=== PATIENT | male | born 1955 | race Caucasian/White ===

== ENCOUNTER 2019-07-11 09:41 | Outpatient (CLI) | payer MEDICARE, SELFPAY ==
[2019-07-11 10:32] LABS: Hemoglobin A1C 6.1 % (<5.7)
== END 2019-07-11 09:42 | disposition home or self-care (01) ==
LOC: ANHLAB 09:45
PROVIDERS: PCP Internal Medicine; Visit Provider Nurse Practitioner
DX: R73.02 Impaired glucose tolerance (oral) (principal)
CPT/HCPCS: 36415; 83036

== ENCOUNTER 2019-10-27 13:52 | Outpatient (CLI) | payer MEDICARE, SELFPAY ==
[2019-10-27 14:18] LABS: Blood Urea Nitrogen 25 mg/dL (9-20); Calcium 8.7 mg/dL (8.4-10.2); Carbon Dioxide 32 mmol/L (22-30); Chloride 99 mmol/L (98-107); Estimated Glomerular Filt Rate 34; Glucose 114 mg/dL (75-110); Magnesium 2.1 mg/dL (1.6-2.3); Potassium 4.5 mmol/L (3.4-5.0); Sodium 137 mmol/L (137-145)
== END 2019-10-27 13:53 | disposition home or self-care (01) ==
PROVIDERS: PCP Internal Medicine; Visit Provider Internal Medicine Cardiovascular Disease
DX: I50.32 Chronic diastolic (congestive) heart failure (principal)
CPT/HCPCS: 36415; 80048; 83735

== ENCOUNTER 2020-03-15 13:39 | Outpatient (CLI) | payer MEDICARE, SELFPAY ==
[2020-03-15 15:58] LABS: Basophils Absolute Auto 0.1 K/mm3 (0.0-0.1); Basophils Percent Auto 0.9 % (0.2-1.2); Eosinophils Absolute Auto 0.1 K/mm3 (0-0.3); Eosinophils Percent Auto 1.1 % (0-4.4); Hematocrit 37.8 % (42.0-52.0); Hemoglobin 12.8 g/dL (14.0-18.0); Immature Granulocyte Absolute 0.13 K/mm3 (0.00-0.031); Immature Granulocyte Percent A 1.2 % (0-0.5); Lymphocytes Absolute Auto 1.63 K/mm3 (0.9-3.2); Lymphocytes Percent Auto 15.6 % (18.3-44.2); Mean Corpuscular HGB Conc 33.9 g/dl (32-36); Mean Corpuscular Hemoglobin 29.6 pg (26-34); Mean Corpuscular Volume 87.5 fl (80-100); Mean Platelet Volume 10.7 fl (7.4-10.4); Monocytes Absolute Auto 1.4 K/mm3 (0.1-0.6); Neutrophils Absolute Auto 7.1 K/mm3 (1.3-6.7); Neutrophils Percent Auto 68.2 % (45.5-73.1); Platelet Count Result 369 k/mm3 (150-375); Red Blood Count 4.32 M/mm3 (4.6-6.20); Red Cell Distribution Width 13.8 % (11.5-14.5); White Blood Count 10.5 K/mm3 (4.5-10.0)
[2020-03-15 16:11] LABS: Alanine Aminotransferase 27 U/L (4-50); Albumin Level 4.5 g/dL (3.5-5.1); Alkaline Phosphatase 114 U/L (38-126); Anion Gap 9 mmol/L (8-16); Aspartate Amino Transferase 35 U/L (17-59); Bilirubin,Total 0.8 mg/dL (0.2-1.3); Blood Urea Nitrogen 32 mg/dL (9-20); Calcium 9.1 mg/dL (8.4-10.2); Carbon Dioxide 30 mmol/L (22-30); Chloride 99 mmol/L (98-107); Cholesterol 137 mg/dL (0-200); Estimated Glomerular Filt Rate 38; Glucose 85 mg/dL (75-110); HDL Direct 40 mg/dL; Potassium 4.7 mmol/L (3.4-5.0); Sodium 138 mmol/L (137-145); Triglycerides 135 mg/dL (<150)
[2020-03-15 16:16] LABS: Alanine Aminotransferase 26 U/L (4-50); Albumin Level 4.6 g/dL (3.5-5.1); Alkaline Phosphatase 124 U/L (38-126); Aspartate Amino Transferase 42 U/L (17-59); Bilirubin,Total 0.8 mg/dL (0.2-1.3)
[2020-03-15 16:22] LABS: LDL Cholesterol Direct 63 mg/dL
[2020-03-15 16:25] LABS: Hemoglobin A1C 5.9 % (<5.7)
[2020-03-19 10:05] LABS: Testosterone Total 684 ng/dL (250-1100)
== END 2020-03-15 13:40 | disposition home or self-care (01) ==
LOC: ANHLAB 13:41
PROVIDERS: Nurse Practitioner; PCP Internal Medicine; Visit Provider Internal Medicine
DX: R53.83 Other fatigue (principal); I10 Essential (primary) hypertension; R73.03 Prediabetes; E78.5 Hyperlipidemia, unspecified; R79.89 Other specified abnormal findings of blood chemistry
CPT/HCPCS: 36415; 80053; 80061; 80076; 83036; 84403; 84443; 85025

== ENCOUNTER 2020-05-11 07:36 | Outpatient (RCR) | payer MEDICARE, SELFPAY ==
[2020-03-23 13:18] VITALS: BMI 35.4
--- NOTE | 2020-04-05 14:58 | PCWOUND ---
WOCN NOTE patient called to cancel appointment for 04/06/20 states wound is healed.
== END 2020-06-21 23:59 | disposition home or self-care (01) ==
LOC: ANHWOC 07:36
PROVIDERS: PCP Internal Medicine; Visit Provider Nurse Practitioner
DX: L97.929 Non-pressure chronic ulcer of unspecified part of left lower leg with unspecified severity (principal)
CPT/HCPCS: 99212; 99213; A9270; G0463

== ENCOUNTER 2020-09-17 09:28 | Outpatient (CLI) | payer MEDICARE, SELFPAY ==
[2020-09-17 10:24] LABS: Alanine Aminotransferase 18 U/L (4-50); Albumin Level 4.3 g/dL (3.5-5.1); Alkaline Phosphatase 87 U/L (38-126); Anion Gap 8 mmol/L (8-16); Aspartate Amino Transferase 26 U/L (17-59); Bilirubin,Total 1.1 mg/dL (0.2-1.3); Blood Urea Nitrogen 28 mg/dL (9-20); Calcium 8.9 mg/dL (8.4-10.2); Carbon Dioxide 30 mmol/L (22-30); Chloride 101 mmol/L (98-107); Cholesterol 106 mg/dL (0-200); Estimated Glomerular Filt Rate 32; Glucose 130 mg/dL (75-110); HDL Direct 36 mg/dL; Potassium 4.4 mmol/L (3.4-5.0); Sodium 139 mmol/L (137-145); Triglycerides 91 mg/dL (<150)
[2020-09-17 10:35] LABS: LDL Cholesterol Direct 49 mg/dL
[2020-09-17 10:53] LABS: Prostate Specific Antigen 3.6 ng/mL (< OR = 4.0)
[2020-09-21 13:13] LABS: Testosterone Total 155 ng/dL (250-1100)
== END 2020-09-17 09:29 | disposition home or self-care (01) ==
PROVIDERS: PCP Internal Medicine; Visit Provider Internal Medicine
DX: E78.5 Hyperlipidemia, unspecified (principal); Z12.5 Encounter for screening for malignant neoplasm of prostate; I10 Essential (primary) hypertension; R73.03 Prediabetes; R79.89 Other specified abnormal findings of blood chemistry
CPT/HCPCS: 36415; 80053; 80061; 83036; 84153; 84403; G0103

== ENCOUNTER 2021-02-04 10:23 | Outpatient (CLI) | payer MEDICARE, SELFPAY ==
[2021-02-04 11:36] LABS: Hemoglobin A1C 6.3 % (<5.7)
[2021-02-08 11:14] LABS: Testosterone Total 611 ng/dL (250-1100)
== END 2021-02-04 10:24 | disposition home or self-care (01) ==
PROVIDERS: PCP Internal Medicine; Visit Provider Internal Medicine
DX: R79.89 Other specified abnormal findings of blood chemistry (principal); R73.03 Prediabetes
CPT/HCPCS: 36415; 83036; 84403

== ENCOUNTER 2021-02-08 16:23 | Outpatient (CLI) | payer MEDICARE, SELFPAY ==
[2021-02-08 17:06] LABS: Alanine Aminotransferase 17 U/L (4-50); Albumin Level 4.4 g/dL (3.5-5.1); Alkaline Phosphatase 89 U/L (38-126); Anion Gap 9 mmol/L (8-16); Aspartate Amino Transferase 24 U/L (17-59); Blood Urea Nitrogen 31 mg/dL (9-20); Calcium 8.7 mg/dL (8.4-10.2); Carbon Dioxide 29 mmol/L (22-30); Chloride 100 mmol/L (98-107); Cholesterol 128 mg/dL (0-200); Estimated Glomerular Filt Rate 29; Glucose 148 mg/dL (65-110); HDL Direct 40 mg/dL; Sodium 138 mmol/L (137-145); Triglycerides 145 mg/dL (<150)
[2021-02-08 17:17] LABS: LDL Cholesterol Direct 50 mg/dL
[2021-02-08 17:36] LABS: Prostate Specific Antigen 3.3 ng/mL (< OR = 4.0)
== END 2021-02-08 16:24 | disposition home or self-care (01) ==
LOC: ANHLAB 16:27
PROVIDERS: Nurse Practitioner; PCP Internal Medicine; Visit Provider Internal Medicine
DX: Z12.5 Encounter for screening for malignant neoplasm of prostate (principal); I12.9 Hypertensive chronic kidney disease with stage 1 through stage 4 chronic kidney disease, or unspecified chronic kidney disease; N18.30 Chronic kidney disease, stage 3 unspecified; E78.2 Mixed hyperlipidemia
CPT/HCPCS: 36415; 80053; 80061; 84153; G0103

== ENCOUNTER 2021-03-25 10:30 | Outpatient (CLI) | payer MEDICARE, SELFPAY ==
--- NOTE | ~2021-03-25 | US_ITS ---
EXAMINATION: US renal BI EXAM DATE: 03/25/2021 11:27 INDICATION: CKD Stage 4. TECHNIQUE: Multiple grayscale and Doppler images of the kidneys were obtained (by a technologist who performed the scan) and subsequently reviewed. Comparison is made to prior examination from 10/23/2018 . FINDINGS: There is moderate bilateral renal cortical thinning, atrophy. Right kidney: There is normal contour and increased echogenicity. It measures 10.4 x 4.9 x 4.8 centi meters. There is 9 mm cyst in the superior pole. There is no hydronephrosis. Left kidney: There is normal contour and increased echogenicity. It measures 12.4 x 5.9 x 5.3 centim eters. There is 1 cm cyst in the midpole. There is no hydronephrosis. Bladder unremarkable. There is bladder diverticulum, measuring about 4 cm in diameter by 1 cm in thi ckness at time of imaging. IMPRESSION: 1. Echogenic kidneys with renal cortical thinning, medical renal disease and atrophy. 2. Bladder cyst. Reviewed, dictated and finalized at location B. IMPRESSION: 1. Echogenic kidneys with renal cortical thinning, medical renal disease and a trophy. 2. Bladder cyst.
[2021-03-25 12:14] LABS: Albumin Level 4.6 g/dL (3.5-5.1); Anion Gap 7 mmol/L (8-16); Blood Urea Nitrogen 21 mg/dL (9-20); Calcium 8.9 mg/dL (8.4-10.2); Carbon Dioxide 33 mmol/L (22-30); Chloride 99 mmol/L (98-107); Estimated Glomerular Filt Rate 34; Glucose 122 mg/dL (65-110); Phosphorus 3.5 mg/dL (2.5-4.5); Potassium 4.3 mmol/L (3.4-5.0); Sodium 139 mmol/L (137-145)
[2021-03-25 12:42] LABS: Complement C3 94 mg/dL (88-165)
[2021-03-25 13:10] LABS: Eosinophil Urine None Seen % (None Seen)
[2021-03-25 14:59] LABS: Creatinine Urine 77.5 mg/dL
[2021-03-25 15:00] LABS: Sodium Urine Random 79 meq/L
[2021-03-25 15:38] LABS: Total Protein Urine Random 352 mg/dL; Ur Ttl Prot Creatinine Ratio 4.54 mg/mg (0-0.20)
[2021-03-30 09:55] LABS: ANCA Screen Negative (Negative)
[2021-03-30 14:50] LABS: Albumin 3.9 g/dL (3.8-4.8); Alpha 1 Globulin 0.3 g/dL (0.2-0.3); Alpha 2 Globulin 0.9 g/dL (0.5-0.9); Beta 1 Globulin 0.4 g/dL (0.4-0.6); Gamma Globulin 0.7 g/dL (0.8-1.7); Interpretation Consistent with; Protein, Total 6.6 g/dL (6.1-8.1)
[2021-03-30 22:05] LABS: Creatinine, Random Urine 77 mg/dL (20-320); Total Protein/Creatinine Ratio 2558 mg/g creat (22-128)
[2021-04-06 07:02] LABS: Anti Glomerular Basement Memb <1.0 AI (<1.0)
== END 2021-03-25 10:31 | disposition home or self-care (01) ==
LOC: ANHIMG 10:32
PROVIDERS: PCP Internal Medicine; Visit Provider Internal Medicine Nephrology
DX: I12.9 Hypertensive chronic kidney disease with stage 1 through stage 4 chronic kidney disease, or unspecified chronic kidney disease (principal); N18.4 Chronic kidney disease, stage 4 (severe); N32.89 Other specified disorders of bladder
CPT/HCPCS: 36415; 76775; 80069; 82570; 83520; 84155; 84156; 84165; 84166; 84300; 85999; 86021; 86038; 86039; 86160; 86225

== ENCOUNTER 2021-05-19 10:38 | Outpatient (CLI) | payer MEDICARE, SELFPAY ==
--- NOTE | ~2021-05-19 | XR_ITS ---
EXAMINATION: XR hip RT min 2V DATE: 05/19/2021 11:05 INDICATION: Right hip pain TECHNIQUE: Two views of the right hip were obtained. COMPARISON: None. FINDINGS: Bone alignment is normal. There is no fracture. There is mild osteoarthritis of the hip. Ph leboliths are noted in the left pelvis. IMPRESSION: 1. Mild osteoarthritis. Reviewed, dictated and finalized at location A. X RAY SERVICE TECHNICIAN IMPRESSION: 1. Mild osteoarthritis.
--- NOTE | ~2021-05-19 | XR_ITS ---
EXAMINATION: XR lumbar spine 2-3V DATE: 05/19/2021 11:05 INDICATION: Low back pain TECHNIQUE: Anteroposterior and lateral views of the lumbar spine, and cone-down lateral view of the l umbosacral junction were obtained. COMPARISON: None. FINDINGS: Bone alignment is normal. There is no fracture. There is mild loss of intervertebral disc s pace height throughout the lumbar spine and moderate disc space loss at L5-S1. The vertebral body hei ghts are maintained. Degenerative osteophytes project from the anterior endplates of multiple vertebr al bodies. There is moderate facet osteoarthritis at L4-5 and L5-S1. There is calcified atheroscleros is of the aorta and many of the other arteries. Changes of left total hip are in plaster noted. There are phleboliths of the right pelvis. An ovoid right upper quadrant calcification likely reflects cho lelithiasis. IMPRESSION: 1. Moderate lumbar spondylosis without acute findings. Reviewed, dictated and finalized at location A. CARPENTER
== END 2021-05-19 10:39 | disposition home or self-care (01) ==
LOC: ANHIMG 10:44
PROVIDERS: PCP Internal Medicine; Visit Provider Internal Medicine
DX: M16.11 Unilateral primary osteoarthritis, right hip (principal); M47.817 Spondylosis without myelopathy or radiculopathy, lumbosacral region; I70.0 Atherosclerosis of aorta
CPT/HCPCS: 72100; 73502

== ENCOUNTER → 2021-06-24 09:05 | Outpatient (CLI) | payer MEDICARE, SELFPAY ==
[2021-06-24 14:17] LABS: SARS-CoV-2 RNA PCR Positive
[2021-06-24 14:55] LABS: Influenza A QL RT-PCR Negative (Negative); Influenza B QL RT-PCR Negative (Negative)
== END ==
PROVIDERS: PCP Internal Medicine; Visit Provider Internal Medicine
DX: U07.1 COVID-19 (principal)
CPT/HCPCS: 87502; 87804; C9803; U0003; U0005

== ENCOUNTER 2021-06-28 12:19 | Inpatient (IN) | payer MEDICARE, SELFPAY ==
[2021-06-28] VITALS (13 sets, daily range): BP systolic 134–175; BP diastolic 62–92; PULSE 71–102; RESP 18–28; TEMP 36.1–36.7; O2SAT 82–95; BMI 35.4
--- NOTE | ~2021-06-28 | XR_ITS ---
EXAMINATION: XR chest 1V portable DATE: 07/11/2021 11:20 INDICATION: Respiratory failure. COVID-19 pneumonia. TECHNIQUE: A single frontal view of the chest was obtained. COMPARISON: Chest single view 07/09/2021, chest CT 10/07/2012 FINDINGS: There are airspace and interstitial opacities in all lung zones bilaterally with sparing of the lung apices. No pleural effusion or pneumothorax. Cardiomegaly is noted. IMPRESSION: 1. Mildly worsened diffuse lung disease, consistent with COVID-19 pneumonia. 2. Cardiomegaly. Reviewed, dictated and finalized at location A. CARE CONTACT SPECIALIST
--- NOTE | ~2021-06-28 | XR_ITS ---
EXAMINATION: XR chest 1V portable DATE: 07/12/2021 06:12 INDICATION: COVID-19 pneumonia. Increased oxygen requirement. TECHNIQUE: A single frontal view of the chest was obtained. COMPARISON: Chest single view 07/11/2021 FINDINGS: There are airspace and interstitial opacities throughout the lungs bilaterally with sparing of the lung apices. No pleural effusion or pneumothorax. Cardiomegaly is noted. IMPRESSION: 1. Stable diffuse lung disease, consistent with COVID-19 pneumonia. 2. Cardiomegaly. Reviewed, dictated and finalized at location A. NESS SYSTEMS MANAGER
--- NOTE | ~2021-06-28 | XR_ITS ---
EXAMINATION: XR chest 1V portable DATE: 07/09/2021 08:25 INDICATION: Persistent hypoxemia. COVID-19 pneumonia. TECHNIQUE: A single frontal view of the chest was obtained. COMPARISON: Chest single view 07/01/2021, chest CT 10/07/2012 FINDINGS: There are patchy airspace opacities in all lung zones bilaterally. No pleural effusion or p neumothorax. Cardiomegaly is noted. There are old healed right rib fractures. IMPRESSION: 1. Diffuse lung disease with mild worsening on the right, consistent with pneumonia. 2. Cardiomegaly. Reviewed, dictated and finalized at location A. L ASSISTANT MANAGER IMPRESSION: 1. Diffuse lung disease with mild worsening on the right, consistent with pneum onia. 2. Cardiomegaly.
--- NOTE | ~2021-06-28 | US_ITS ---
EXAMINATION: US venous doppler LE EXAM DATE: 06/29/2021 13:07 INDICATION: Bilateral leg swelling. TECHNIQUE: Multiple grayscale, color flow and Doppler images of the lower extremity deep venous syste ms bilaterally were obtained and reviewed. There is no prior study for comparison. FINDINGS: Right side: The right common femoral, femoral and profunda veins demonstrate normal color flow, respi ratory variation, augmentation and compressibility. Compressibility, color flow confirmed within the right popliteal, posterior tibial, peroneal, and greater saphenous veins. There is a Peralta's cyst m easuring 4 x 3 x 2 cm. Left side: The left common femoral, femoral and profunda veins demonstrate normal color flow, respira tory variation, augmentation and compressibility. Compressibility, color flow confirmed within the l eft popliteal, posterior tibial, peroneal, and greater saphenous veins. There is linear region of sca rring in the left femoral vein distally. IMPRESSION: 1. No lower extremity deep venous thrombosis bilaterally. 2. Moderate-sized right Peralta's cyst. Reviewed, dictated and finalized at location B. TRONICS SYSTEM MECHANIC
--- NOTE | ~2021-06-28 | NM_ITS ---
EXAMINATION: NM pulmonary perfusion DATE: 06/29/2021 11:59 INDICATION: Shortness of breath. COVID positive. TECHNIQUE: 5.5 mCi Tc-99m MAA by intravenous route. Scintigraphic images of the chest were obtained. COMPARISON: Chest radiograph dated 06/28/2021 FINDINGS: There are small perfusion defects at the anterior segment of the right upper lobe and along the bilat eral lung bases with more extensive airspace opacities throughout the bilateral mid and lower lung zo sohail on prior chest radiograph. Cardiomegaly. No moderate-sized or larger perfusion defects identified . This be consistent with a low probability for pulmonary embolism. IMPRESSION: 1. Low probability for pulmonary embolism. Reviewed, dictated and finalized at location A. OWS VMWARE ADMINISTRATOR
--- NOTE | ~2021-06-28 | US_ITS ---
EXAMINATION: US renal BI DATE: 07/13/2021 13:34 INDICATION: Elevated creatinine TECHNIQUE: Multiple ultrasound grayscale images of the kidneys were obtained. COMPARISON: None. FINDINGS: The right kidney measures 10.2 x 5.3 x 5.1 cm. The left kidney measures 9.8 x 5.3 x 4.9 cm. There is diffuse increased cortical echogenicity in both kidneys consistent with medical renal disease. There is no hydronephrosis in either kidney. No stones identified. The bladder is decompressed around a Fo letha catheter which limits evaluation. IMPRESSION: 1. Diffuse bilateral increased renal cortical echogenicity consistent with medical renal disease. No hydronephrosis. Reviewed, dictated and finalized at location A. COMMANDER IMPRESSION: 1. Diffuse bilateral increased renal cortical echogenicity consistent with med ical renal disease. No hydronephrosis.
--- NOTE | ~2021-06-28 | XR_ITS ---
EXAMINATION: XR chest 1V portable DATE: 07/01/2021 07:29 INDICATION: Pneumonia TECHNIQUE: frontal view of the chest was obtained. COMPARISON: Chest radiograph dated 06/28/2021 FINDINGS: There is been some decrease in the diffuse coarse patchy airspace opacities throughout both lungs con sistent with improving pneumonia. No pleural effusion or pneumothorax. Cardiomegaly. IMPRESSION: 1. Slight decrease in diffuse bilateral lung disease consistent with improving COVID pneumonia. 2. Cardiomegaly. Reviewed, dictated and finalized at location A. TURNER MACHINE OPERATOR
--- NOTE | ~2021-06-28 | XR_ITS ---
XR chest 1V portable DATE: 06/28/2021 14:32 INDICATION: Shortness of breath. Covid-positive 10 days ago. TECHNIQUE: Portable upright AP chest on 06/28/2021 at 1423 hours COMPARISON: 10/22/2018 PA and lateral chest FINDINGS: Extensive prominent patchy consolidating infiltrates are scattered throughout both lungs, w ith least involvement of the apical areas. The severity the infiltrates is greater than those on 10/22. Borderline or increased heart size. No pleural effusion or pneumothorax. IMPRESSION: Extensive patchy bilateral pulmonary infiltrates, likely due to extensive bilateral Covid pneumonia Reviewed, dictated and finalized at location A. RVISING EDITOR NEWS REEL IMPRESSION: Extensive patchy bilateral pulmonary infiltrates, likely due to ext ensive bilateral Covid pneumonia
--- NOTE | 2021-06-28 14:19 | ED.GENADULT ---
HPI - General Adult General Chief complaint: Shortness of Breath/Dyspnea Stated complaint: low o2 Time Seen by Provider: 06/28/21 14:09 Source: patient and RN notes reviewed History of Present Illness HPI narrative: Patient is a 66 y/o male complaining of fever and increasing SOB for about 1 week. He has no cough or chest pain. He states that he is on 3L O2 chronically for hypoxia. He tested positive for COVID 4 days ago on 06/28/21. Related Data Home Medications Medication Instructions Recorded Confirmed albuterol sulfate 90 mcg/actuation 2 puff INHALATION PRN PRN gm 05/16/19 06/28/21 aerosol inhaler dorzolamide 22.3 mg-timolol 6.8 1 drop EACH EYE BID 05/16/19 06/28/21 mg/mL eye drops latanoprost 0.005 % eye drops, 1 drop EACH EYE QPM 05/16/19 06/28/21 emulsion aspirin 81 mg tablet,delayed 81 mg PO DAILY 12/18/19 06/28/21 release montelukast 10 mg tablet 10 mg PO DAILY 03/04/20 06/28/21 Allergies Allergy/AdvReac Type Severity Reaction Status Date / Time No Known Allergies Allergy Verified 06/28/21 18:46 Review of Systems Constitutional: Constitutional: Denies chills, Reports fever(s), Denies headache(s) and Denies weakness Eyes: Eyes: Denies blurry vision ENT: Denies headache(s) and Denies neck pain Cardiovascular: Cardiovascular: Denies chest pain and Denies dyspnea Respiratory: Respiratory: Denies cough and Reports dyspnea Gastrointestinal: Gastrointestinal: Denies abdominal pain, Denies diarrhea, Denies nausea and Denies vomiting Genitourinary: Genitourinary: Denies hematuria and Denies dysuria Musculoskeletal: Musculoskeletal: Denies back pain and Denies neck pain Neurologic: Denies headache(s) and Denies weakness [facility] Past Medical History Medical History (Updated 06/28/21 @ 20:02 by Sarika Delong MD) Depression Essential (primary) hypertension Glaucoma Heart disease History of blood clots History of heart attack 1998 Neck pain Numbness of fingers of both hands Obese Other hyperlipidemia Oxygen dependent Ulcer of left lower extremity Surgical History Surgical History H/O exploratory laparotomy H/O hernia repair 2006 with mesh History of hip replacement Family History Family History Father Family history of transient ischemic attacks Family history of lung cancer Family history of coronary artery disease Patient's father is Mother Family history of transient ischemic attacks Patient's mother is Social History Social History (Updated 06/28/21 @ 15:08 by Melony Wright NP) Social History: 2 c div , brother lives with Smoking packs per day: 1.5 Smoking cigarettes per day: 30.0 Years smoked: 10 Smoking pack-years: 15.00 Smoking status: Former smoker Tobacco type: cigarettes Second hand tobacco smoke exposure: Yes Smoking end date: 06/11/91 Alcohol intake: never Substance use: never Substance use type: does not use Gender identity (if verbalized by the patient): Male Sexual Orientation (if Verbalized by the Patient): Straight or Heterosexual Spiritual care concerns: No Exam Const: General: no acute distress and well developed Orientation/consciousness: oriented to person, oriented to place, oriented to time and patient oriented x3 HENMT: Head: normocephalic Ears: external ears normal General nose exam: Normal external nose present Eyes: General: appearance normal, both eyes and all related structures Conjunctivae: conjunctivae normal Neck: Neck: normal visual inspection and full ROM Chest: Chest palpation & inspection: normal inspection of the chest and no tenderness Resp: Effort & Inspection: tachypneic Auscultation: clear to auscultation bilaterally Cardio: Rate: tachycardic Rhythm: regular rhythm GI: GI Palp: No abdominal tenderness and Yes Soft to palp
[2021-06-28 14:45] LABS: Basophils Absolute Auto 0.1 K/mm3 (0.0-0.1); Basophils Percent Auto 0.4 % (0.2-1.2); Eosinophils Percent Auto 0.1 % (0-4.4); Hematocrit 37.8 % (42.0-52.0); Hemoglobin 12.9 g/dL (14.0-18.0); Immature Granulocyte Absolute 0.68 K/mm3 (0.00-0.031); Immature Granulocyte Percent A 4.4 % (0-0.5); Lymphocytes Absolute Auto 0.49 K/mm3 (0.9-3.2); Lymphocytes Percent Auto 3.2 % (18.3-44.2); Mean Corpuscular HGB Conc 34.1 g/dl (32-36); Mean Corpuscular Hemoglobin 29.5 pg (26-34); Mean Corpuscular Volume 86.3 fl (80-100); Mean Platelet Volume 9.7 fl (7.4-10.4); Monocytes Absolute Auto 1.8 K/mm3 (0.1-0.6); Monocytes Percent Auto 11.8 % (2.6-8.5); Neutrophils Absolute Auto 12.4 K/mm3 (1.3-6.7); Neutrophils Percent Auto 80.1 % (45.5-73.1); Platelet Count Result 430 k/mm3 (150-375); Red Blood Count 4.38 M/mm3 (4.6-6.20); Red Cell Distribution Width 14.3 % (11.5-14.5); White Blood Count 15.5 K/mm3 (4.5-10.0)
[2021-06-28 14:55] LABS: Alanine Aminotransferase 37 U/L (4-50); Albumin Level 3.6 g/dL (3.5-5.1); Alkaline Phosphatase 154 U/L (38-126); Anion Gap 9 mmol/L (8-16); Aspartate Amino Transferase 49 U/L (17-59); Blood Urea Nitrogen 33 mg/dL (9-20); Calcium 8.6 mg/dL (8.4-10.2); Carbon Dioxide 25 mmol/L (22-30); Chloride 96 mmol/L (98-107); Estimated CRCL calculation 36 ml/min; Estimated Glomerular Filt Rate 29; Glucose 143 mg/dL (65-110); Potassium 4.6 mmol/L (3.4-5.0); Sodium 130 mmol/L (137-145)
--- NOTE | 2021-06-28 15:03 | PM.IMHP ---
H&P: HPI History of Present Illness Date/Time: 06/28/21 15:03 this is a 66-year-old male patient who was not vaccinated for COVID. The patient is chronically on oxygen he states that he is typically on 3 to 3-1/2. The patient is not sure why he is chronically on oxygen. He said at 1 time he was diagnosed with COPD and CHF but then he had seen another physician who disagreed with that diagnosis. The patient tested positive for COVID-19 on 06/24/2021. The patient stated that he is more short of breath over the last week. The patient stated that he is having difficulty even walking to the bathroom before he becomes very short of breath. Patient's chest x-ray was read as extensive patchy bilateral pulmonary infiltrates likely due to extensive bilateral COVID pneumonia. White count 15.5. H&H 12.9 and 37.8. Platelets 430. Sodium 130.. Pulmonology had been consulted per ED provider. Sodium 130. BUN 33 and creatinine 2.3 which is his baseline. Alkaline phosphatase 154 The patient was started on Decadron. The patient is being admitted to inpatient services on 06/28/2021 Chief Complaint: Shortness of breath Review of Systems Review of Systems: All systems reviewed & are unremarkable except as noted in HPI and below Constitutional: Constitutional: Reports as per HPI and Reports no additional constitutional complaints Eyes: Eyes: Reports as per HPI and Reports no additional eye complaints ENT: Reports system reviewed and no additional complaints, except as documented and Reports Normal hearing present Cardiovascular: Cardiovascular: Reports no additional cardiovascular complaints Respiratory: Respiratory: Reports no additional respiratory complaints and Reports no additional respiratory complaints Gastrointestinal: Gastrointestinal: Reports as per HPI and Reports no additional gastrointestinal complaints Musculoskeletal: Musculoskeletal: Reports no additional musculoskeletal complaints Integumentary/Breasts: Skin/Breast: Reports system reviewed and no additional complaints, except as docu and Reports as per HPI Neurologic: Reports system reviewed and no additional complaints, except as documented, Reports as per HPI and Reports Normal hearing present Psychiatric: Psychiatric: Reports no additional psychiatric complaints and Reports as per HPI Endocrine: Endocrine: Reports no additional endocrine complaints Hematologic/Lymphatic: Hematologic/Lymphatic: Reports no additional hematologic/lymphatic complaints Allergic/Immunologic: Allergic/Immunologic: Reports no additional allergic/immunologic complaints [facility] Past Medical History Medical History (Updated 06/28/21 @ 20:28 by Melony Wright NP) Chronic renal disease Depression Essential (primary) hypertension Glaucoma Heart disease History of blood clots History of heart attack 1998 Neck pain Numbness of fingers of both hands Obese Other hyperlipidemia Oxygen dependent Ulcer of left lower extremity Surgical History Surgical History H/O exploratory laparotomy H/O hernia repair 2005 with mesh History of hip replacement Family History Family History Father Family history of transient ischemic attacks Family history of lung cancer Family history of coronary artery disease Patient's father is Mother Family history of transient ischemic attacks Patient's mother is Social History Social History (Updated 06/28/21 @ 20:21 by Melony Wright NP) Social History: The patient has 2 children. He is and lives with his brother. The patient is a former smoker. Patient denies any alcohol marijuana or illicit drugs. Smoking packs per day: 1.5 Smoking cigarettes per day: 30.0 Years smoked: 10 Smoking pack-years: 15.00 Smoking status: Former smoker Tobacco type: cigarettes Second hand tobacco smo
[2021-06-28 20:46] LABS: Alanine Aminotransferase 40 U/L (4-50); Estimated CRCL calculation 38 ml/min; Estimated Glomerular Filt Rate 30
[2021-06-28 20:52] LABS: INR 1.1
[2021-06-28] MEDS: ENOXAPARIN 30 MG/0.3 ML SYRINGE SUB-Q (22:31)
[2021-06-28] MEDS: carvediloL 25 MG TABLET BY MOUTH (22:31)
[2021-06-28] MEDS: hydrALAZINE HCL 50 MG TABLET 100 MG BY MOUTH (22:31)
[2021-06-28] MEDS: DORZOLAMIDE/TIMOLOL OPHTH SOL 10 ML BOTTLE 1 DROP EACH EYE (22:31)
[2021-06-28] MEDS: LATANOPROST 0.005% OP SOLN 2.5 ML BTL 1 DROP EACH EYE (22:32)
[2021-06-29] VITALS (11 sets, daily range): BP systolic 129–171; BP diastolic 77–110; PULSE 75–114; RESP 18–27; TEMP 36.3–36.8; O2SAT 90–93
--- NOTE | 2021-06-29 | ECHO_ITS ---
Patient Info Name: Dario Quezada Age: 66 years : 1955 Gender: Male Ht: 69 in Wt: 239 lbs BSA: 2.34 m2 HR: 81 bpm BP: 136 / 85 mmHg Heart Rhythm: Sinus Rhythm Technical Quality: Poor Exam Date: 06/29/2021 1:10 PM Exam Location: [facility] Pulmonary Patient Status: Inpatient Admit Date: 06/28/2021 Staff Ordering Physician: Melony Wright NP Ship'S Cook: Angela Aceves RDCS Attending Provider: Aisha Blackwell MD Referring Physician: Kyle MCFADDEN; Exam Type: CA echo dop color flow w con Study Info Indications - sob Complete two-dimensional, color flow and Doppler transthoracic echocardiogram is performed. Summary 1. Complete two-dimensional, color flow and Doppler transthoracic echocardiogram is performed. 2. Technically suboptimal study due to poor sonographic images. 3. Left ventricular chamber dimension is mildly enlarged. 4. Definity contrast administered improved wall motion interpretation. 5. Left ventricular systolic function is normal, estimated at 55-60%. 6. There is moderately increased left ventricular wall thickness. 7. The left ventricular diastolic function is grade I diastolic dysfunction. 8. E/e' 14 is mildly elevated. 9. Left atrial chamber dimension is mildly enlarged. 10. Right atrial chamber dimension is mildly enlarged. 11. There is moderate aortic valve sclerosis. 12. There is mild aortic valve stenosis with a peak velocity of 219.91 cm/s, mean gradient of 10 mmHg, and aortic valve area of 1.66 cm2. 13. No pulmonary hypertension, estimated pulmonary arterial systolic pressure is 33 mmHg. Left Ventricle Technically suboptimal study due to poor sonographic images. Definity contrast administered improved wall motion interpretation. Left ventricular chamber dimension is mildly enlarged. Left ventricular systolic function is normal, estimated at 55-60%. There is moderately increased left ventricular wall thickness. The left ventricular diastolic function is grade I diastolic dysfunction. E/e' 14 is mildly elevated. Right Ventricle Right ventricular systolic function is normal and with normal TAPSE 2.6 cm. Right ventricular chamber dimension is not well visualized. Left Atria Left atrial chamber dimension is mildly enlarged. Right Atria Right atrial chamber dimension is mildly enlarged. Aortic Valve The aortic valve is trileaflet. There is moderate aortic valve sclerosis. There is mild aortic valve stenosis with a peak velocity of 219.91 cm/s, mean gradient of 10 mmHg, and aortic valve area of 1.66 cm2. There is no aortic valve regurgitation. Pulmonic Valve There is no pulmonic regurgitation. Mitral Valve There is no mitral valve stenosis. There is no mitral valve regurgitation. Tricuspid Valve There is no tricuspid valve regurgitation. No pulmonary hypertension, estimated pulmonary arterial systolic pressure is 33 mmHg. Pericardium/Pleural There is no pericardial effusion. Inferior Vena Cava Normal inferior vena cava with >50% collapse upon inspiration consistent with normal right atrial pressure, 5 mmHg. Aorta The aortic root size at the sinus of Valsalva is normal. Left Ventricular Outflow Tract Name Value Normal LVOT 2D LVOT Diameter
[2021-06-29] MEDS: hydrALAZINE HCL 50 MG TABLET 100 MG BY MOUTH ×3 (06:10→21:08)
--- NOTE | 2021-06-29 06:45 | P.PNIM_ITS ---
Progress Note: A&P Assessment and Plan (1) Pneumonia due to COVID-19 virus: Code(s): U07.1 - COVID-19; J12.82 - Pneumonia due to coronavirus disease 2019 Status: Acute Assessment and Plan: * Covid positive on 06/24/21 * Chest xray shows Extensive patchy bilateral pulmonary infiltrates, likely due to extensive bilateral Covid pneumonia * VQ scan pending to rule out PE * Chronically on oxygen up to about 3.5 L for unknown reasons * currently on oxygen at 4 L per nasal cannula * echo ordered and pending * BNP elevated 1320 * 2-3+ pitting edema bilateral lower extremities * Inflammatory markers: LDH 684, CRP >9.0, ferritin 728 * Decadron 6mg PO daily for 10 days (Day 2) * Remdesivir contraindicated for GFR less than 30, current GFR is 29 * pulmonology consult thank you for your help * Continue home montelukast 10mg PO daily * Albuterol ordered, consider Anoro Ellipta * Self pronate as often as possible * Lovenox 40 mg daily (2) Chronic renal disease: Code(s): N18.9 - Chronic kidney disease, unspecified Status: Acute Assessment and Plan: * Baseline BUN looks to be 30, baseline creatinine looks to be around 2.1 * Currently 38/2.3 * Stage 3-4 * Renally dose medications * Avoid nephrotoxic medications * Continue chronic lisinopril 20 mg * See Dr. Espinosa for nephrology (3) Glaucoma: Code(s): H40.9 - Unspecified glaucoma Status: Chronic Assessment and Plan: * Continue with home eye drops. (4) Other hyperlipidemia: Code(s): E78.49 - Other hyperlipidemia Status: Acute Assessment and Plan: * AST ALT 56/46 Alkphos 150 * Continue simvastatin * Trend liver enzymes (5) Essential (primary) hypertension: Code(s): I10 - Essential (primary) hypertension Status: Acute Assessment and Plan: * Current BP is 136/85 * Continue Coreg 25mg PO Q12hr, lisinopril 20mg PO daily, and hydralazine 100mg Q8hr * Trend BP * Adjust therapy as indicated (6) SHERWIN on CPAP: Code(s): G47.33 - Obstructive sleep apnea (adult) (pediatric); Z99.89 - Dependence on other enabling machines and devices Status: Acute Assessment and Plan: * CPAP as per home settings (7) Acute and chronic respiratory failure: Code(s): J96.20 - Acute and chronic respiratory failure, unspecified whether with hypoxia or hypercapnia Status: Acute Assessment and Plan: * Home oxygen is 3LNC * Reports SPO2 in the 70s at home with light activity * Currently 4LNC * Could be from fluid overload * Does seem to have some component of CHF * He does have an underlying COPD, however, no sputum change or increase, some noted wheezing, but most likely crackles * Monitor SPO2 * Titrate oxygen to meet demand * Pulm Consult thank you for your help * See Dr. Acuña, would like to switch to [facility] group upon DC (8) Lung nodule: Code(s): R91.1 - Solitary pulmonary nodule Status: Acute Assessment and Plan: * Noted on a CT from 2019 * 4mm left lung base and 3mm left upper lobe peripherally * Outpatient follow up * Could consider a CT of the chest without due to renal function (9) COPD (chronic obstructive pulmonary disease): Code(s): J44.9 - Chronic obstructive pulmonary disease, unspecified Status: Acute Assessment and Plan: * Hx of COPD * This pr
--- NOTE | 2021-06-29 06:45 | PM.IMPN ---
Progress Note: A&P Assessment and Plan (1) Pneumonia due to COVID-19 virus: Code(s): U07.1 - COVID-19; J12.82 - Pneumonia due to coronavirus disease 2019 Status: Acute Assessment and Plan: Covid positive on 06/24/21 Chest xray shows Extensive patchy bilateral pulmonary infiltrates, likely due to extensive bilateral Covid pneumonia VQ scan pending to rule out PE Chronically on oxygen up to about 3.5 L for unknown reasons currently on oxygen at 4 L per nasal cannula echo ordered and pending BNP elevated 1320 2-3+ pitting edema bilateral lower extremities Inflammatory markers: LDH 684, CRP >9.0, ferritin 728 Decadron 6mg PO daily for 10 days (Day 2) Remdesivir contraindicated for GFR less than 30, current GFR is 29 pulmonology consult thank you for your help Continue home montelukast 10mg PO daily Albuterol ordered, consider Anoro Ellipta Self pronate as often as possible Lovenox 40 mg daily (2) Chronic renal disease: Code(s): N18.9 - Chronic kidney disease, unspecified Status: Acute Assessment and Plan: Baseline BUN looks to be 30, baseline creatinine looks to be around 2.1 Currently 38/2.3 Stage 3-4 Renally dose medications Avoid nephrotoxic medications Continue chronic lisinopril [address] Espinosa for nephrology (3) Glaucoma: Code(s): H40.9 - Unspecified glaucoma Status: Chronic Assessment and Plan: Continue with home eye drops. (4) Other hyperlipidemia: Code(s): E78.49 - Other hyperlipidemia Status: Acute Assessment and Plan: AST ALT 56/46 Alkphos 150 Continue simvastatin Trend liver enzymes (5) Essential (primary) hypertension: Code(s): I10 - Essential (primary) hypertension Status: Acute Assessment and Plan: Current BP is 136/85 Continue Coreg 25mg PO Q12hr, lisinopril 20mg PO daily, and hydralazine 100mg Q8hr Trend BP Adjust therapy as indicated (6) SHERWIN on CPAP: Code(s): G47.33 - Obstructive sleep apnea (adult) (pediatric); Z99.89 - Dependence on other enabling machines and devices Status: Acute Assessment and Plan: CPAP as per home settings (7) Acute and chronic respiratory failure: Code(s): J96.20 - Acute and chronic respiratory failure, unspecified whether with hypoxia or hypercapnia Status: Acute Assessment and Plan: Home oxygen is 3LNC Reports SPO2 in the 70s at home with light activity Currently 4LNC Could be from fluid overload Does seem to have some component of CHF He does have an underlying COPD, however, no sputum change or increase, some noted wheezing, but most likely crackles Monitor SPO2 Titrate oxygen to meet demand Pulm Consult thank you for your help See Dr. Acuña, would like to switch to [facility] upon DC (8) Lung nodule: Code(s): R91.1 - Solitary pulmonary nodule Status: Acute Assessment and Plan: Noted on a CT from 2019 4mm left lung base and 3mm left upper lobe peripherally Outpatient follow up Could consider a CT of the chest without due to renal function (9) COPD (chronic obstructive pulmonary disease): Code(s): J44.9 - Chronic obstructive pulmonary disease, unspecified Status: Acute Assessment and Plan: Hx of COPD This probably is playing a component to the shortness of breath, feel that this is more CHF related No complaints of increase sputum production or changes, says he has wheezes, but hear crackles Albuterol inhaler, singular continued from home Consider adding Anoro ellipta CT from 2019 found airtrapping Chest xray shows COVID PNA (10) Urinary obstruction: Code(s): N13.9 - Obstructive and reflux uropathy, unspecified Status: Acute Assessment and Plan: Chronic as he self caths at home Urinary catheter inserted (12fr Coude) Sees Dr. Madison
[2021-06-29] MEDS: SIMVASTATIN 20 MG TABLET 40 MG PO (09:20)
[2021-06-29] MEDS: DULoxetine HCL 60 MG CAPSULE.DR BY MOUTH (09:20)
[2021-06-29] MEDS: ASPIRIN 81 MG ENTERIC TABLET PO (09:21)
[2021-06-29] MEDS: lisinopriL 20 MG TABLET PO (09:22)
[2021-06-29] MEDS: carvediloL 25 MG TABLET BY MOUTH ×2 (09:23→21:08)
[2021-06-29] MEDS: POTASSIUM CHLORIDE 20 MEQ TABLET.ER BY MOUTH (09:26)
[2021-06-29] MEDS: MONTELUKAST SODIUM 10 MG TABLET PO (09:27)
[2021-06-29] MEDS: DORZOLAMIDE/TIMOLOL OPHTH SOL 10 ML BOTTLE 1 DROP EACH EYE ×2 (09:28→21:09)
[2021-06-29] MEDS: HYDROcodone/acetaminophen (*CRX) 10-325 MG TABLET 1 TAB PO ×3 (09:36→23:45)
[2021-06-29 09:50] LABS: Lactic Acid Reflex 1.1 mmol/L (0.7-2.1)
[2021-06-29 09:59] LABS: Alanine Aminotransferase 46 U/L (4-50); Albumin Level 3.9 g/dL (3.5-5.1); Alkaline Phosphatase 150 U/L (38-126); Anion Gap 10 mmol/L (8-16); Aspartate Amino Transferase 56 U/L (17-59); Bilirubin,Total 1.1 mg/dL (0.2-1.3); Blood Urea Nitrogen 38 mg/dL (9-20); CRP > 9.0 mg/dL (<1.0); Calcium 9.1 mg/dL (8.4-10.2); Carbon Dioxide 26 mmol/L (22-30); Chloride 99 mmol/L (98-107); Estimated CRCL calculation 36 ml/min; Estimated Glomerular Filt Rate 29; Glucose 165 mg/dL (65-110); Lactate Dehydrogenase 684 U/L (313-618); Magnesium 2.1 mg/dL (1.6-2.3); NT Pro B Type Natriuretic Pept 1320 pg/mL (5-100); Potassium 4.5 mmol/L (3.4-5.0); Sodium 135 mmol/L (137-145); Troponin I 0.013 ng/mL (0.000-0.034)
[2021-06-29 10:41] LABS: Thyroid Stimulating Hormone Reflex 0.425 uIU/mL (0.465-4.68)
[2021-06-29] MEDS: FUROSEMIDE INJ 40 MG/4 ML VIAL IV PUSH ×2 (11:26→16:35)
[2021-06-29 11:49] LABS: Free T4 Free Thyroxine Reflex 1.29 ng/dL (0.78-2.19)
[2021-06-29 13:27] LABS: Total Triiodothyronine (T3) 0.76 NG/ML (0.97-1.69)
[2021-06-29] MEDS: REMDESIVIR 100 MG/NS 250 ML 100 MG/250 ML BAG 250 MG IVPB (14:43)
[2021-06-29] MEDS: LATANOPROST 0.005% OP SOLN 2.5 ML BTL 1 DROP EACH EYE (16:36)
--- NOTE | 2021-06-29 18:27 | PM.CNPUL ---
Assessment and Plan Assessment and plan (1) Pneumonia due to COVID-19 virus: Code(s): U07.1 - COVID-19; J12.82 - Pneumonia due to coronavirus disease 2018 Status: Acute Assessment and Plan: (+) SARS CoV 2 on Jun 24 Rx with dexamethsone, reduced dose Remdesivir; his creat is around 2.8 and creat clearance around 30. He has HTN, does not have lisinopril on his med list however he needs it. If he worsens as far as O2 requirement, he may be a candidate for a biologic. BNP elevated 1320 and pitting edema bilateral lower extremities; he has increased inflammatory markers: LDH 648, CRP 14.3, ferritin 974, dimer 1.82 (2) Acute and chronic respiratory failure with hypoxia: Code(s): J96.21 - Acute and chronic respiratory failure with hypoxia Status: Acute Assessment and Plan: On O2 for 6 years, generally 3- 3.5 L/min, cause likely COPD; he has been followed by Dr Acuña, records requested Patient says he has no diagnosis to explain his O2 requirement, was a heavy smoker 2 ppd x 10+ years. O2 need is higher in the hospital; saturatn was decreased into the 70s at home prior to this admission (3) COPD (chronic obstructive pulmonary disease): Code(s): J44.9 - Chronic obstructive pulmonary disease, unspecified Status: Acute Assessment and Plan: Has COPD by hx, was on albuterol and Singulair at home. May benefot from bronchodilator therapy and PFTs after discharge in 6-8 weeks. (4) Congestive heart failure: Code(s): I50.9 - Heart failure, unspecified Status: Acute Assessment and Plan: has echo showing grade I diastolic dysfunction, LE swelling, elevated BNP which may reflect R heart strain from acute illness Has crackles on exam, EF of 55-60%, moderately enlarge left ventricular wall thickness. Acute exacerbation of diastolic heart failure, patient did state that he quit taking his diuretic BNP elevated at 1320, lasix ordered; agree with continuing home Coreg 25mg PO and lisinopril 20mg PO daily Sees Dr. Means for cardiology (5) Sleep apnea, unspecified: Code(s): G47.30 - Sleep apnea, unspecified Status: Acute Assessment and Plan: has PAP machine at home, no prior sleep results to review (6) Pulmonary nodule less than 6 cm determined by computed tomography of lung: Code(s): R91.1 - Solitary pulmonary nodule Status: Acute Assessment and Plan: CT chest 04/27/2019 several nodules, 4 mm left lung base and 3mm left upper lobe peripherally, recommended to have repeat chest CT in a year. This needs to be performed (7) History of blood clots: Code(s): Z86.718 - Personal history of other venous thrombosis and embolism Status: Acute Assessment and Plan: 2+pitting edema noted on Left, 1+ Right History of DVT in the left leg with improvement ith diuresis Venous Dopplers negative for DVT Had an ablation done to the left saphenous vein with Dr. 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 He has COPD, does not have a shunt, had bubble study. He was admitted with increase
[2021-06-29] MEDS: ENOXAPARIN 40 MG/0.4 ML SYRINGE SUB-Q (21:09)
[2021-06-30] VITALS (13 sets, daily range): BP systolic 112–154; BP diastolic 69–87; PULSE 67–86; RESP 18–23; TEMP 36.4–36.9; O2SAT 90–94
[2021-06-30] MEDS: hydrALAZINE HCL 50 MG TABLET 100 MG BY MOUTH ×3 (06:26→20:22)
[2021-06-30] MEDS: HYDROcodone/acetaminophen (*CRX) 10-325 MG TABLET 1 TAB PO ×2 (06:26→14:05)
[2021-06-30 07:04] LABS: INR 1.1; Prothrombin Time 14.3 Seconds (11.1-14.7)
[2021-06-30 07:15] LABS: Alanine Aminotransferase 83 U/L (4-50); Estimated CRCL calculation 33 ml/min; Estimated Glomerular Filt Rate 26
[2021-06-30 08:20] LABS: Basophils Absolute Auto 0.1 K/mm3 (0.0-0.1); Basophils Percent Auto 0.3 % (0.2-1.2); Hematocrit 39.3 % (42.0-52.0); Hemoglobin 13.7 g/dL (14.0-18.0); Immature Granulocyte Absolute 0.77 K/mm3 (0.00-0.031); Immature Granulocyte Percent A 3.5 % (0-0.5); Lymphocytes Absolute Auto 0.59 K/mm3 (0.9-3.2); Lymphocytes Percent Auto 2.7 % (18.3-44.2); Mean Corpuscular HGB Conc 34.9 g/dl (32-36); Mean Corpuscular Hemoglobin 29.5 pg (26-34); Mean Corpuscular Volume 84.5 fl (80-100); Mean Platelet Volume 9.8 fl (7.4-10.4); Monocytes Absolute Auto 1.9 K/mm3 (0.1-0.6); Monocytes Percent Auto 8.7 % (2.6-8.5); Neutrophils Absolute Auto 18.8 K/mm3 (1.3-6.7); Neutrophils Percent Auto 84.8 % (45.5-73.1); Platelet Count Result 553 k/mm3 (150-375); Red Blood Count 4.65 M/mm3 (4.6-6.20); Red Cell Distribution Width 14.2 % (11.5-14.5); White Blood Count 22.2 K/mm3 (4.5-10.0)
--- NOTE | 2021-06-30 08:30 | PM.IMPN ---
Progress Note: A&P Assessment and Plan (1) Pneumonia due to COVID-19 virus: Code(s): U07.1 - COVID-19; J12.82 - Pneumonia due to coronavirus disease 2019 Status: Acute Assessment and Plan: Covid positive on 06/24/21 Chest xray shows Extensive patchy bilateral pulmonary infiltrates, likely due to extensive bilateral Covid pneumonia VQ scan low probability for PE Chronically on oxygen up to about 3.5 L for unknown reasons currently on oxygen at 4 L per nasal cannula echo EF of 55-60%, grade 1 diastolic dysfunction, moderately enlarge left ventricular wall thickness. BNP elevated 1320 pitting edema bilateral lower extremities getting better Inflammatory markers: LDH 648, CRP 14.3, ferritin 974, dimer 1.82 Decadron 6mg PO daily for 10 days (Day 3) Ceftriaxone and azithromycin ordered Remdesivir started at a lower dose pulmonology consult thank you for your help Continue home montelukast 10mg PO daily Albuterol ordered, consider Anoro Ellipta Self pronate as often as possible Lovenox 40 mg daily (2) Chronic renal disease: Code(s): N18.9 - Chronic kidney disease, unspecified Status: Acute Assessment and Plan: Baseline BUN looks to be 30, baseline creatinine looks to be around 2.1 Currently 48/2.50 Stage 3-4 Renally dose medications Avoid nephrotoxic medications Continue chronic lisinopril [address] Espinosa for nephrology (3) Glaucoma: Code(s): H40.9 - Unspecified glaucoma Status: Chronic Assessment and Plan: Continue with home eye drops. (4) Other hyperlipidemia: Code(s): E78.49 - Other hyperlipidemia Status: Acute Assessment and Plan: AST ALT 93/84 Alkphos 175 Continue simvastatin Trend liver enzymes (5) Essential (primary) hypertension: Code(s): I10 - Essential (primary) hypertension Status: Acute Assessment and Plan: Current BP is 112/69 Continue Coreg 25mg PO Q12hr, lisinopril 20mg PO daily, and hydralazine 100mg Q8hr Trend BP Adjust therapy as indicated (6) SHERWIN on CPAP: Code(s): G47.33 - Obstructive sleep apnea (adult) (pediatric); Z99.89 - Dependence on other enabling machines and devices Status: Acute Assessment and Plan: CPAP as per home settings (7) Acute and chronic respiratory failure: Code(s): J96.20 - Acute and chronic respiratory failure, unspecified whether with hypoxia or hypercapnia Status: Acute Assessment and Plan: Home oxygen is 3LNC Reports SPO2 in the 70s at home with light activity Currently 4LNC Could be from fluid overload Does seem to have some component of CHF He does have an underlying COPD, however, no sputum change or increase, some noted wheezing, but most likely crackles Monitor SPO2 Titrate oxygen to meet demand Pulm Consult thank you for your help See Dr. Acuña, would like to switch to [facility] upon DC (8) Lung nodule: Code(s): R91.1 - Solitary pulmonary nodule Status: Acute Assessment and Plan: Noted on a CT from 2019 4mm left lung base and 3mm left upper lobe peripherally Outpatient follow up Could consider a CT of the chest without due to renal function (9) COPD (chronic obstructive pulmonary disease): Code(s): J44.9 - Chronic obstructive pulmonary disease, unspecified Status: Acute Assessment and Plan: Hx of COPD This probably is playing a component to the shortness of breath, feel that this is more CHF related No complaints of increase sputum production or changes, says he has wheezes, but hear crackles Albuterol inhaler, singular continued from home Consider adding Anoro ellipta CT from 2019 found airtrapping Chest xray shows COVID PNA (10) Urinary obstruction: Code(s): N13.9 - Obstructive and reflux uropathy, unspecified Status: Acute Assessme
--- NOTE | 2021-06-30 08:30 | P.PNIM_ITS ---
Progress Note: A&P Assessment and Plan (1) Pneumonia due to COVID-19 virus: Code(s): U07.1 - COVID-19; J12.82 - Pneumonia due to coronavirus disease 2019 Status: Acute Assessment and Plan: * Covid positive on 06/24/21 * Chest xray shows Extensive patchy bilateral pulmonary infiltrates, likely due to extensive bilateral Covid pneumonia * VQ scan low probability for PE * Chronically on oxygen up to about 3.5 L for unknown reasons * currently on oxygen at 4 L per nasal cannula * echo EF of 55-60%, grade 1 diastolic dysfunction, moderately enlarge left ventricular wall thickness. * BNP elevated 1320 * pitting edema bilateral lower extremities getting better * Inflammatory markers: LDH 648, CRP 14.3, ferritin 974, dimer 1.82 * Decadron 6mg PO daily for 10 days (Day 3) * Ceftriaxone and azithromycin ordered * Remdesivir started at a lower dose * pulmonology consult thank you for your help * Continue home montelukast 10mg PO daily * Albuterol ordered, consider Anoro Ellipta * Self pronate as often as possible * Lovenox 40 mg daily (2) Chronic renal disease: Code(s): N18.9 - Chronic kidney disease, unspecified Status: Acute Assessment and Plan: * Baseline BUN looks to be 30, baseline creatinine looks to be around 2.1 * Currently 48/2.50 * Stage 3-4 * Renally dose medications * Avoid nephrotoxic medications * Continue chronic lisinopril 20 mg * See Dr. Espinosa for nephrology (3) Glaucoma: Code(s): H40.9 - Unspecified glaucoma Status: Chronic Assessment and Plan: * Continue with home eye drops. (4) Other hyperlipidemia: Code(s): E78.49 - Other hyperlipidemia Status: Acute Assessment and Plan: * AST ALT 93/84 Alkphos 175 * Continue simvastatin * Trend liver enzymes (5) Essential (primary) hypertension: Code(s): I10 - Essential (primary) hypertension Status: Acute Assessment and Plan: * Current BP is 112/69 * Continue Coreg 25mg PO Q12hr, lisinopril 20mg PO daily, and hydralazine 100mg Q8hr * Trend BP * Adjust therapy as indicated (6) SHERWIN on CPAP: Code(s): G47.33 - Obstructive sleep apnea (adult) (pediatric); Z99.89 - Dependence on other enabling machines and devices Status: Acute Assessment and Plan: * CPAP as per home settings (7) Acute and chronic respiratory failure: Code(s): J96.20 - Acute and chronic respiratory failure, unspecified whether with hypoxia or hypercapnia Status: Acute Assessment and Plan: * Home oxygen is 3LNC * Reports SPO2 in the 70s at home with light activity * Currently 4LNC * Could be from fluid overload * Does seem to have some component of CHF * He does have an underlying COPD, however, no sputum change or increase, some noted wheezing, but most likely crackles * Monitor SPO2 * Titrate oxygen to meet demand * Pulm Consult thank you for your help * See Dr. Acuña, would like to switch to [facility] upon DC (8) Lung nodule: Code(s): R91.1 - Solitary pulmonary nodule Status: Acute Assessment and Plan: * Noted on a CT from 2019 * 4mm left lung base and 3mm left upper lobe peripherally * Outpatient follow up * Could consider a CT of the chest without due to renal function (9) COPD (chronic obstructive pulmonary disease): Code(s): J44.9 - Chronic obstructive pulmon
[2021-06-30 08:39] LABS: D Dimer 1.82 ug/mL (<0.48)
[2021-06-30 09:18] LABS: Alanine Aminotransferase 84 U/L (4-50); Albumin Level 3.8 g/dL (3.5-5.1); Alkaline Phosphatase 175 U/L (38-126); Anion Gap 10 mmol/L (8-16); Aspartate Amino Transferase 93 U/L (17-59); Bilirubin,Total 0.8 mg/dL (0.2-1.3); Blood Urea Nitrogen 48 mg/dL (9-20); Carbon Dioxide 30 mmol/L (22-30); Chloride 95 mmol/L (98-107); Estimated CRCL calculation 33 ml/min; Estimated Glomerular Filt Rate 26; Glucose 168 mg/dL (65-110); Lactate Dehydrogenase 648 U/L (313-618); Magnesium 2.1 mg/dL (1.6-2.3); Potassium 4.5 mmol/L (3.4-5.0); Sodium 135 mmol/L (137-145)
[2021-06-30 09:39] LABS: CRP 14.3 mg/dL (<1.0)
[2021-06-30] MEDS: FUROSEMIDE INJ 40 MG/4 ML VIAL IV PUSH ×2 (10:05→16:52)
[2021-06-30] MEDS: DULoxetine HCL 60 MG CAPSULE.DR BY MOUTH (10:06)
[2021-06-30] MEDS: ASPIRIN 81 MG ENTERIC TABLET PO (10:06)
[2021-06-30] MEDS: POTASSIUM CHLORIDE 20 MEQ TABLET.ER BY MOUTH (10:06)
[2021-06-30] MEDS: SIMVASTATIN 20 MG TABLET 40 MG PO (10:06)
[2021-06-30] MEDS: carvediloL 25 MG TABLET BY MOUTH ×2 (10:07→20:22)
[2021-06-30] MEDS: lisinopriL 20 MG TABLET PO (10:07)
[2021-06-30] MEDS: MONTELUKAST SODIUM 10 MG TABLET PO (10:08)
[2021-06-30] MEDS: DORZOLAMIDE/TIMOLOL OPHTH SOL 10 ML BOTTLE 1 DROP EACH EYE ×2 (10:09→20:24)
[2021-06-30] MEDS: LATANOPROST 0.005% OP SOLN 2.5 ML BTL 1 DROP EACH EYE (16:59)
[2021-06-30] MEDS: ENOXAPARIN 40 MG/0.4 ML SYRINGE SUB-Q (20:23)
[2021-07-01] VITALS (8 sets, daily range): BP systolic 133–163; BP diastolic 78–87; PULSE 65–88; RESP 16–20; TEMP 36.2–36.6; O2SAT 90–91
[2021-07-01] MEDS: HYDROcodone/acetaminophen (*CRX) 10-325 MG TABLET 1 TAB PO ×4 (04:38→23:00)
[2021-07-01] MEDS: hydrALAZINE HCL 50 MG TABLET 100 MG BY MOUTH ×3 (05:49→20:35)
[2021-07-01 06:25] LABS: Basophils Absolute Auto 0.1 K/mm3 (0.0-0.1); Basophils Percent Auto 0.3 % (0.2-1.2); Hematocrit 40.4 % (42.0-52.0); Hemoglobin 13.7 g/dL (14.0-18.0); Immature Granulocyte Absolute 0.82 K/mm3 (0.00-0.031); Immature Granulocyte Percent A 4.3 % (0-0.5); Lymphocytes Absolute Auto 0.89 K/mm3 (0.9-3.2); Lymphocytes Percent Auto 4.6 % (18.3-44.2); Mean Corpuscular HGB Conc 33.9 g/dl (32-36); Mean Corpuscular Hemoglobin 29.3 pg (26-34); Mean Corpuscular Volume 86.3 fl (80-100); Mean Platelet Volume 10.1 fl (7.4-10.4); Monocytes Absolute Auto 2.1 K/mm3 (0.1-0.6); Neutrophils Absolute Auto 15.3 K/mm3 (1.3-6.7); Neutrophils Percent Auto 79.8 % (45.5-73.1); Nucleated Red Blood Cells Perc 0.1 % (0.0-0.2); Platelet Count Result 556 k/mm3 (150-375); Red Blood Count 4.68 M/mm3 (4.6-6.20); Red Cell Distribution Width 14.3 % (11.5-14.5); White Blood Count 19.2 K/mm3 (4.5-10.0)
[2021-07-01 06:35] LABS: Alanine Aminotransferase 73 U/L (4-50); Albumin Level 3.6 g/dL (3.5-5.1); Alkaline Phosphatase 124 U/L (38-126); Anion Gap 8 mmol/L (8-16); Aspartate Amino Transferase 58 U/L (17-59); Bilirubin,Total 0.7 mg/dL (0.2-1.3); Blood Urea Nitrogen 56 mg/dL (9-20); Calcium 8.8 mg/dL (8.4-10.2); Carbon Dioxide 34 mmol/L (22-30); Chloride 92 mmol/L (98-107); Creatine Kinase 59 U/L (55-170); Estimated CRCL calculation 33 ml/min; Estimated Glomerular Filt Rate 26; Glucose 125 mg/dL (65-110); Lactate Dehydrogenase 632 U/L (313-618); Magnesium 1.9 mg/dL (1.6-2.3); Potassium 4.4 mmol/L (3.4-5.0); Sodium 134 mmol/L (137-145)
[2021-07-01 06:38] LABS: INR 1.1; Prothrombin Time 14.3 Seconds (11.1-14.7)
[2021-07-01 06:41] LABS: D Dimer 1.48 ug/mL (<0.48)
[2021-07-01 07:10] LABS: Hepatitis B Surface Antigen Negative (Negative)
[2021-07-01 07:16] LABS: HAV RESULT Negative (Negative); Hepatitis B Core IgM Result Negative (Negative)
[2021-07-01 07:28] LABS: Hepatitis C Virus Antibody Negative (Negative)
[2021-07-01] MEDS: POTASSIUM CHLORIDE 20 MEQ TABLET.ER BY MOUTH (08:44)
[2021-07-01] MEDS: lisinopriL 20 MG TABLET PO (08:44)
[2021-07-01] MEDS: SIMVASTATIN 20 MG TABLET 40 MG PO (08:44)
[2021-07-01] MEDS: MONTELUKAST SODIUM 10 MG TABLET PO (08:44)
[2021-07-01] MEDS: DULoxetine HCL 60 MG CAPSULE.DR BY MOUTH (08:44)
[2021-07-01] MEDS: ASPIRIN 81 MG ENTERIC TABLET PO (08:44)
[2021-07-01] MEDS: FUROSEMIDE INJ 40 MG/4 ML VIAL IV PUSH (08:45)
[2021-07-01] MEDS: carvediloL 25 MG TABLET BY MOUTH ×2 (08:45→20:35)
[2021-07-01] MEDS: DORZOLAMIDE/TIMOLOL OPHTH SOL 10 ML BOTTLE 1 DROP EACH EYE ×2 (08:52→20:45)
--- NOTE | 2021-07-01 10:40 | P.PNIM_ITS ---
Progress Note: A&P Assessment and Plan (1) Acute and chronic respiratory failure: Code(s): J96.20 - Acute and chronic respiratory failure, unspecified whether with hypoxia or hypercapnia Status: Acute Assessment and Plan: Chronic respiratory failure secondary to COPD. Typically on 3.5 L. acute respiratory failure secondary to COVID-19 pneumonia * Currently requiring 4 L per nasal cannula * Continue supplemental O2 as needed with goal saturation 90% or above * Appreciate pulmonology consultation * He will need home O2 eval prior to discharge (2) Pneumonia due to COVID-19 virus: Code(s): U07.1 - COVID-19; J12.82 - Pneumonia due to coronavirus disease 2018 Status: Acute Assessment and Plan: Positive COVID test on 06/24/2021. CXR showed extensive patchy bilateral infiltrates * Continue isolation precautions * Dexamethasone and remdesivir #3. Monitor LFTs. ALT is very mildly elevated but appropriate to continue * Continue supplemental O2 as needed * Supportive care to include bronchodilators, expectorants, antipyretics, incentive spirometry * I will discontinue his antibiotics at this time as no signs/symptoms to suggest secondary bacterial pneumonia * Monitor inflammatory markers intermittently * Patient has not been vaccinated for COVID-19 (3) Congestive heart failure: Code(s): I50.9 - Heart failure, unspecified Status: Acute Assessment and Plan: History of CHF initially felt to be in acute diastolic exacerbation * Echo showed EF 55-60% with grade 1 diastolic dysfunction * He has had symptomatic improvement with IV Lasix. * Will transition to p.o. Lasix 40 mg b.i.d. * Monitor intake and output and daily weights * Heart healthy diet * Continue home carvedilol and lisinopril * Patient reportedly quit taking his diuretics at home. He will need to be discharged on Lasix * He is established with insurance risk surveyor, Dr. Means, with whom he will need to follow-up as an outpatient (4) Chronic renal disease: Code(s): N18.9 - Chronic kidney disease, unspecified Status: Acute Assessment and Plan: Review of prior labs indicates baseline around 2.0-2.3 * Patient is established with summer analyst, Dr. Espinosa * Slight increase in creatinine, likely due to need for IV diuretics. Transition to p.o. * Continue to monitor renal function closely. Renally dose medications and avoid nephrotoxic agents (5) Essential (primary) hypertension: Code(s): I10 - Essential (primary) hypertension Status: Acute Assessment and Plan: Blood pressure reviewed and has been generally well controlled. Last BP 151/80 * Continue home regimen of carvedilol, lisinopril, hydralazine * Monitor blood pressure trends and adjust medication regimen as needed (6) SHERWIN on CPAP: Code(s): G47.33 - Obstructive sleep apnea (adult) (pediatric); Z99.89 - Dependence on other enabling machines and devices Status: Acute Assessment and Plan: CPAP as per home settings (7) Lung nodule: Code(s): R91.1 - Solitary pulmonary nodule Status: Acute Assessment and Plan: Noted on a CT from 2019 * 4mm left lung base and 3mm left upper lobe peripherally * Continue outpatient follow up (8) COPD (chronic obstructive pulmonary disease): Code(s): J44.9 - Chronic obstructive pulmonary disease, unspecified Status: Acute Assessment and Plan: Not in acute exacerbation. No wheezing * Continue home maintenance inhalers * Albuterol as nee
--- NOTE | 2021-07-01 10:40 | PM.IMPN ---
Progress Note: A&P Assessment and Plan (1) Acute and chronic respiratory failure: Code(s): J96.20 - Acute and chronic respiratory failure, unspecified whether with hypoxia or hypercapnia Status: Acute Assessment and Plan: Chronic respiratory failure secondary to COPD. Typically on 3.5 L. acute respiratory failure secondary to COVID-19 pneumonia Currently requiring 4 L per nasal cannula Continue supplemental O2 as needed with goal saturation 90% or above Appreciate pulmonology consultation He will need home O2 eval prior to discharge (2) Pneumonia due to COVID-19 virus: Code(s): U07.1 - COVID-19; J12.82 - Pneumonia due to coronavirus disease 2018 Status: Acute Assessment and Plan: Positive COVID test on 06/24/2021. CXR showed extensive patchy bilateral infiltrates Continue isolation precautions Dexamethasone and remdesivir #3. Monitor LFTs. ALT is very mildly elevated but appropriate to continue Continue supplemental O2 as needed Supportive care to include bronchodilators, expectorants, antipyretics, incentive spirometry I will discontinue his antibiotics at this time as no signs/symptoms to suggest secondary bacterial pneumonia Monitor inflammatory markers intermittently Patient has not been vaccinated for COVID-19 (3) Congestive heart failure: Code(s): I50.9 - Heart failure, unspecified Status: Acute Assessment and Plan: History of CHF initially felt to be in acute diastolic exacerbation Echo showed EF 55-60% with grade 1 diastolic dysfunction He has had symptomatic improvement with IV Lasix. Will transition to p.o. Lasix 40 mg b.i.d. Monitor intake and output and daily weights Heart healthy diet Continue home carvedilol and lisinopril Patient reportedly quit taking his diuretics at home. He will need to be discharged on Lasix He is established with marking machine tender, Dr. Means, with whom he will need to follow-up as an outpatient (4) Chronic renal disease: Code(s): N18.9 - Chronic kidney disease, unspecified Status: Acute Assessment and Plan: Review of prior labs indicates baseline around 2.0-2.3 Patient is established with jewel oliving machine operator, Dr. Espinosa Slight increase in creatinine, likely due to need for IV diuretics. Transition to p.o. Continue to monitor renal function closely. Renally dose medications and avoid nephrotoxic agents (5) Essential (primary) hypertension: Code(s): I10 - Essential (primary) hypertension Status: Acute Assessment and Plan: Blood pressure reviewed and has been generally well controlled. Last BP 151/80 Continue home regimen of carvedilol, lisinopril, hydralazine Monitor blood pressure trends and adjust medication regimen as needed (6) SHERWIN on CPAP: Code(s): G47.33 - Obstructive sleep apnea (adult) (pediatric); Z99.89 - Dependence on other enabling machines and devices Status: Acute Assessment and Plan: CPAP as per home settings (7) Lung nodule: Code(s): R91.1 - Solitary pulmonary nodule Status: Acute Assessment and Plan: Noted on a CT from 2019 4mm left lung base and 3mm left upper lobe peripherally Continue outpatient follow up (8) COPD (chronic obstructive pulmonary disease): Code(s): J44.9 - Chronic obstructive pulmonary disease, unspecified Status: Acute Assessment and Plan: Not in acute exacerbation. No wheezing Continue home maintenance inhalers Albuterol as needed (9) Urinary obstruction: Code(s): N13.9 - Obstructive and reflux uropathy, unspecified Status: Acute Assessment and Plan: Chronic urinary outflow obstruction He self caths at home Urinary catheter initiated during admission (12fr Coude) (10) Leukocytosis: Code(s): D72.829 - Elevated white blood cell count, unspecified Status: Acute Assessment and Plan: WBC elevated up to 22.2
[2021-07-01] MEDS: FUROSEMIDE 40 MG TABLET PO (17:09)
[2021-07-01] MEDS: LATANOPROST 0.005% OP SOLN 2.5 ML BTL 1 DROP EACH EYE (17:09)
[2021-07-01] MEDS: ENOXAPARIN 40 MG/0.4 ML SYRINGE SUB-Q (20:35)
[2021-07-02] VITALS (9 sets, daily range): BP systolic 120–139; BP diastolic 68–88; PULSE 68–83; RESP 18–22; TEMP 36.4–36.8; O2SAT 89–93
[2021-07-02] MEDS: hydrALAZINE HCL 50 MG TABLET 100 MG BY MOUTH ×3 (05:12→20:38)
[2021-07-02] MEDS: HYDROcodone/acetaminophen (*CRX) 10-325 MG TABLET 1 TAB PO ×4 (05:17→23:04)
[2021-07-02 06:48] LABS: Basophils Percent Auto 0.2 % (0.2-1.2); Eosinophils Percent Auto 0.2 % (0-4.4); Hematocrit 40.6 % (42.0-52.0); Immature Granulocyte Absolute 0.93 K/mm3 (0.00-0.031); Immature Granulocyte Percent A 5.3 % (0-0.5); Lymphocytes Absolute Auto 1.08 K/mm3 (0.9-3.2); Lymphocytes Percent Auto 6.2 % (18.3-44.2); Mean Corpuscular HGB Conc 34.5 g/dl (32-36); Mean Corpuscular Hemoglobin 29.4 pg (26-34); Mean Corpuscular Volume 85.1 fl (80-100); Mean Platelet Volume 10.1 fl (7.4-10.4); Monocytes Absolute Auto 1.8 K/mm3 (0.1-0.6); Monocytes Percent Auto 10.5 % (2.6-8.5); Neutrophils Absolute Auto 13.6 K/mm3 (1.3-6.7); Neutrophils Percent Auto 77.6 % (45.5-73.1); Nucleated Red Blood Cells Perc 0.1 % (0.0-0.2); Platelet Count Result 544 k/mm3 (150-375); Red Blood Count 4.77 M/mm3 (4.6-6.20); Red Cell Distribution Width 13.9 % (11.5-14.5); White Blood Count 17.5 K/mm3 (4.5-10.0)
[2021-07-02 07:02] LABS: INR 1.2
[2021-07-02 07:09] LABS: Alanine Aminotransferase 63 U/L (4-50); Albumin Level 3.5 g/dL (3.5-5.1); Alkaline Phosphatase 124 U/L (38-126); Anion Gap 9 mmol/L (8-16); Aspartate Amino Transferase 47 U/L (17-59); Bilirubin,Total 0.9 mg/dL (0.2-1.3); Blood Urea Nitrogen 62 mg/dL (9-20); Calcium 8.6 mg/dL (8.4-10.2); Carbon Dioxide 32 mmol/L (22-30); Chloride 90 mmol/L (98-107); Estimated CRCL calculation 33 ml/min; Estimated Glomerular Filt Rate 26; Glucose 115 mg/dL (65-110); Potassium 4.3 mmol/L (3.4-5.0); Sodium 131 mmol/L (137-145)
[2021-07-02] MEDS: carvediloL 25 MG TABLET BY MOUTH ×2 (08:14→20:38)
[2021-07-02] MEDS: ASPIRIN 81 MG ENTERIC TABLET PO (08:14)
[2021-07-02] MEDS: DORZOLAMIDE/TIMOLOL OPHTH SOL 10 ML BOTTLE 1 DROP EACH EYE ×2 (08:15→20:39)
[2021-07-02] MEDS: SIMVASTATIN 20 MG TABLET 40 MG PO (08:15)
[2021-07-02] MEDS: DULoxetine HCL 60 MG CAPSULE.DR BY MOUTH (08:15)
[2021-07-02] MEDS: POTASSIUM CHLORIDE 20 MEQ TABLET.ER BY MOUTH (08:16)
[2021-07-02] MEDS: lisinopriL 20 MG TABLET PO (08:16)
[2021-07-02] MEDS: FUROSEMIDE 40 MG TABLET PO (08:16)
[2021-07-02] MEDS: MONTELUKAST SODIUM 10 MG TABLET PO (08:16)
--- NOTE | 2021-07-02 09:35 | P.PNIM_ITS ---
Progress Note: A&P Assessment and Plan (1) Acute and chronic respiratory failure: Code(s): J96.20 - Acute and chronic respiratory failure, unspecified whether with hypoxia or hypercapnia Status: Acute Assessment and Plan: Chronic respiratory failure secondary to COPD. Typically on 3.5 L. Acute respiratory failure secondary to COVID-19 pneumonia * Oxygen requirements increased to 9 L per nasal cannula today * Continue supplemental O2 as needed with goal saturation 90% or above * Appreciate pulmonology consultation * He is agreeable to intubation should this be required * He will need home O2 eval prior to discharge (2) Pneumonia due to COVID-19 virus: Code(s): U07.1 - COVID-19; J12.82 - Pneumonia due to coronavirus disease 2019 Status: Acute Assessment and Plan: Positive COVID test on 06/24/2021. CXR showed extensive patchy bilateral infiltrates * Continue isolation precautions * Dexamethasone and remdesivir #4. Monitor LFTs. ALT 63 * Continue supplemental O2 as needed. Increased O2 demand noted today * Supportive care to include bronchodilators, expectorants, antipyretics, incentive spirometry * Despite increased O2 requirements, he is not a candidate for Baricitinib due to his acute on chronic renal failure with GFR 26. * Monitor inflammatory markers intermittently * Patient has not been vaccinated for COVID-19 (3) Congestive heart failure: Code(s): I50.9 - Heart failure, unspecified Status: Acute Assessment and Plan: History of CHF initially felt to be in acute diastolic exacerbation * Echo showed EF 55-60% with grade 1 diastolic dysfunction * He had symptomatic improvement with IV Lasix. * Decrease Lasix to 40 mg PO once daily. * Monitor intake and output and daily weights * Heart healthy diet * Continue home carvedilol and lisinopril * Patient reportedly quit taking his diuretics at home. He will need to be discharged on Lasix * He is established with owner, Dr. Means, with whom he will need to follow-up as an outpatient (4) Chronic renal disease: Code(s): N18.9 - Chronic kidney disease, unspecified Status: Acute Assessment and Plan: Review of prior labs indicates baseline around 2.0-2.3. Baseline GFR 30-35. * Patient is established with service architect, Dr. Espinosa * Slight increase in creatinine, likely due to need for IV diuretics. Hopeful improvement with transition to once daily oral diuretic * Monitor renal function closely while on Remdesivir * Renally dose medications and avoid nephrotoxic agents (5) Essential (primary) hypertension: Code(s): I10 - Essential (primary) hypertension Status: Acute Assessment and Plan: Blood pressure reviewed and has been generally well controlled. Last BP 127/75 * Continue home regimen of carvedilol, lisinopril, hydralazine * Monitor blood pressure trends and adjust medication regimen as needed (6) SHERWIN on CPAP: Code(s): G47.33 - Obstructive sleep apnea (adult) (pediatric); Z99.89 - Dependence on other enabling machines and devices Status: Acute Assessment and Plan: CPAP as per home settings (7) Lung nodule: Code(s): R91.1 - Solitary pulmonary nodule Status: Acute Assessment and Plan: Noted on a CT from 2019 * 4mm left lung base and 3mm left upper lobe peripherally * Continue outpatient follow up (8) COPD (chronic obstructive pulmonary disease): Code(s): J44.9 - Chronic obstructive pulmonary disease, unspecified Status: Acute
--- NOTE | 2021-07-02 09:35 | PM.IMPN ---
Progress Note: A&P Assessment and Plan (1) Acute and chronic respiratory failure: Code(s): J96.20 - Acute and chronic respiratory failure, unspecified whether with hypoxia or hypercapnia Status: Acute Assessment and Plan: Chronic respiratory failure secondary to COPD. Typically on 3.5 L. Acute respiratory failure secondary to COVID-19 pneumonia Oxygen requirements increased to 9 L per nasal cannula today Continue supplemental O2 as needed with goal saturation 90% or above Appreciate pulmonology consultation He is agreeable to intubation should this be required He will need home O2 eval prior to discharge (2) Pneumonia due to COVID-19 virus: Code(s): U07.1 - COVID-19; J12.82 - Pneumonia due to coronavirus disease 2019 Status: Acute Assessment and Plan: Positive COVID test on 06/24/2021. CXR showed extensive patchy bilateral infiltrates Continue isolation precautions Dexamethasone and remdesivir #4. Monitor LFTs. ALT 63 Continue supplemental O2 as needed. Increased O2 demand noted today Supportive care to include bronchodilators, expectorants, antipyretics, incentive spirometry Despite increased O2 requirements, he is not a candidate for Baricitinib due to his acute on chronic renal failure with GFR 26. Monitor inflammatory markers intermittently Patient has not been vaccinated for COVID-19 (3) Congestive heart failure: Code(s): I50.9 - Heart failure, unspecified Status: Acute Assessment and Plan: History of CHF initially felt to be in acute diastolic exacerbation Echo showed EF 55-60% with grade 1 diastolic dysfunction He had symptomatic improvement with IV Lasix. Decrease Lasix to 40 mg PO once daily. Monitor intake and output and daily weights Heart healthy diet Continue home carvedilol and lisinopril Patient reportedly quit taking his diuretics at home. He will need to be discharged on Lasix He is established with call center team leader, Dr. Means, with whom he will need to follow-up as an outpatient (4) Chronic renal disease: Code(s): N18.9 - Chronic kidney disease, unspecified Status: Acute Assessment and Plan: Review of prior labs indicates baseline around 2.0-2.3. Baseline GFR 30-35. Patient is established with paint roller cover machine setter, Dr. Espinosa Slight increase in creatinine, likely due to need for IV diuretics. Hopeful improvement with transition to once daily oral diuretic Monitor renal function closely while on Remdesivir Renally dose medications and avoid nephrotoxic agents (5) Essential (primary) hypertension: Code(s): I10 - Essential (primary) hypertension Status: Acute Assessment and Plan: Blood pressure reviewed and has been generally well controlled. Last BP 127/75 Continue home regimen of carvedilol, lisinopril, hydralazine Monitor blood pressure trends and adjust medication regimen as needed (6) SHERWIN on CPAP: Code(s): G47.33 - Obstructive sleep apnea (adult) (pediatric); Z99.89 - Dependence on other enabling machines and devices Status: Acute Assessment and Plan: CPAP as per home settings (7) Lung nodule: Code(s): R91.1 - Solitary pulmonary nodule Status: Acute Assessment and Plan: Noted on a CT from 2019 4mm left lung base and 3mm left upper lobe peripherally Continue outpatient follow up (8) COPD (chronic obstructive pulmonary disease): Code(s): J44.9 - Chronic obstructive pulmonary disease, unspecified Status: Acute Assessment and Plan: Not in acute exacerbation. No wheezing Continue home maintenance inhalers Albuterol as needed (9) Urinary obstruction: Code(s): N13.9 - Obstructive and reflux uropathy, unspecified Status: Acute Assessment and Plan: Chronic urinary outflow obstruction He self caths at home Urinary catheter initiated during admission (12fr Coude) (10) Leukocytosis:
[2021-07-02] MEDS: LATANOPROST 0.005% OP SOLN 2.5 ML BTL 1 DROP EACH EYE (17:15)
[2021-07-02] MEDS: ENOXAPARIN 40 MG/0.4 ML SYRINGE SUB-Q (20:39)
[2021-07-03] VITALS (8 sets, daily range): BP systolic 118–154; BP diastolic 64–89; PULSE 72–80; RESP 16–20; TEMP 36.3–36.9; O2SAT 90–92
[2021-07-03] MEDS: HYDROcodone/acetaminophen (*CRX) 10-325 MG TABLET 1 TAB PO ×3 (06:31→20:29)
[2021-07-03] MEDS: hydrALAZINE HCL 50 MG TABLET 100 MG BY MOUTH ×3 (06:32→20:43)
[2021-07-03 06:47] LABS: Hematocrit 40.8 % (42.0-52.0); Hemoglobin 13.6 g/dL (14.0-18.0); Mean Corpuscular HGB Conc 33.3 g/dl (32-36); Mean Corpuscular Hemoglobin 29.2 pg (26-34); Mean Corpuscular Volume 87.7 fl (80-100); Mean Platelet Volume 9.7 fl (7.4-10.4); Platelet Count Result 500 k/mm3 (150-375); Red Blood Count 4.65 M/mm3 (4.6-6.20); Red Cell Distribution Width 14.3 % (11.5-14.5); White Blood Count 17.6 K/mm3 (4.5-10.0)
[2021-07-03 06:58] LABS: INR 1.2; Prothrombin Time 14.6 Seconds (11.1-14.7)
[2021-07-03 07:01] LABS: Alanine Aminotransferase 54 U/L (4-50); Albumin Level 3.3 g/dL (3.5-5.1); Alkaline Phosphatase 115 U/L (38-126); Anion Gap 10 mmol/L (8-16); Aspartate Amino Transferase 40 U/L (17-59); Bilirubin,Total 0.8 mg/dL (0.2-1.3); Blood Urea Nitrogen 63 mg/dL (9-20); CRP 7.5 mg/dL (<1.0); Calcium 8.4 mg/dL (8.4-10.2); Carbon Dioxide 32 mmol/L (22-30); Chloride 92 mmol/L (98-107); Estimated CRCL calculation 33 ml/min; Estimated Glomerular Filt Rate 26; Glucose 116 mg/dL (65-110); Potassium 4.3 mmol/L (3.4-5.0); Sodium 134 mmol/L (137-145)
[2021-07-03] MEDS: FUROSEMIDE 40 MG TABLET PO (08:13)
[2021-07-03] MEDS: POTASSIUM CHLORIDE 20 MEQ TABLET.ER BY MOUTH (08:13)
[2021-07-03] MEDS: DULoxetine HCL 60 MG CAPSULE.DR BY MOUTH (08:13)
[2021-07-03] MEDS: MONTELUKAST SODIUM 10 MG TABLET PO (08:13)
[2021-07-03] MEDS: SIMVASTATIN 20 MG TABLET 40 MG PO (08:13)
[2021-07-03] MEDS: ASPIRIN 81 MG ENTERIC TABLET PO (08:13)
[2021-07-03] MEDS: lisinopriL 20 MG TABLET PO (08:13)
[2021-07-03] MEDS: DORZOLAMIDE/TIMOLOL OPHTH SOL 10 ML BOTTLE 1 DROP EACH EYE ×2 (08:14→20:30)
[2021-07-03] MEDS: carvediloL 25 MG TABLET BY MOUTH ×2 (08:14→20:31)
--- NOTE | 2021-07-03 10:14 | P.PNIM_ITS ---
Progress Note: A&P Assessment and Plan (1) Acute and chronic respiratory failure: Code(s): J96.20 - Acute and chronic respiratory failure, unspecified whether with hypoxia or hypercapnia Status: Acute Assessment and Plan: Chronic respiratory failure secondary to COPD. Typically on 3.5 L. Acute respiratory failure secondary to COVID-19 pneumonia * Requiring 9 L per nasal cannula and maintaining adequate O2 sats * Continue supplemental O2 as needed with goal saturation 90% or above. Wean to goal * Appreciate pulmonology consultation * He is agreeable to intubation should this be required (2) Pneumonia due to COVID-19 virus: Code(s): U07.1 - COVID-19; J12.82 - Pneumonia due to coronavirus disease 2019 Status: Acute Assessment and Plan: Positive COVID test on 06/24/2021. CXR showed extensive patchy bilateral infiltrates * Continue isolation precautions * Dexamethasone and remdesivir #5 today. Will continue with an additional 5 days of remdesivir. Monitor LFTs. * Continue supplemental O2 as needed. * Supportive care to include bronchodilators, expectorants, antipyretics, incentive spirometry * Despite increased O2 requirements yesterday up to 9 L, he is not a candidate for Baricitinib due to his acute on chronic renal failure with GFR 26. * Monitor inflammatory markers intermittently * Patient has not been vaccinated for COVID-19 (3) Congestive heart failure: Code(s): I50.9 - Heart failure, unspecified Status: Acute Assessment and Plan: History of CHF initially felt to be in acute diastolic exacerbation * Echo showed EF 55-60% with grade 1 diastolic dysfunction * He had symptomatic improvement with IV Lasix. * Continue Lasix 40 mg PO once daily. * Monitor intake and output and daily weights * Heart healthy diet * Continue home carvedilol and lisinopril * Patient reportedly quit taking his diuretics at home. He will need to be discharged on Lasix * He is established with cow trimmer, Dr. Means, with whom he will need to follow-up as an outpatient (4) Chronic renal disease: Code(s): N18.9 - Chronic kidney disease, unspecified Status: Acute Assessment and Plan: Review of prior labs indicates baseline around 2.0-2.3. Baseline GFR 30-35. * Patient is established with concrete technician, Dr. Espinosa * Slight increase in creatinine, likely due to need for diuretics. Creatinine remaining stable with once daily furosemide * Monitor renal function closely while on Remdesivir * Renally dose medications and avoid nephrotoxic agents (5) Essential (primary) hypertension: Code(s): I10 - Essential (primary) hypertension Status: Acute Assessment and Plan: Blood pressure reviewed and has been generally well controlled. Last BP 148/82 * Continue home regimen of carvedilol, lisinopril, hydralazine * Monitor blood pressure trends and adjust medication regimen as needed (6) SHERWIN on CPAP: Code(s): G47.33 - Obstructive sleep apnea (adult) (pediatric); Z99.89 - Dependence on other enabling machines and devices Status: Acute Assessment and Plan: CPAP as per home settings (7) Lung nodule: Code(s): R91.1 - Solitary pulmonary nodule Status: Acute Assessment and Plan: Noted on a CT from 2019 * 4mm left lung base and 3mm left upper lobe peripherally * Continue outpatient follow up (8) COPD (chronic obstructive pulmonary disease): Code(s): J44.9 - Chronic obstructive pulmonary disease, unspecified Status
--- NOTE | 2021-07-03 10:14 | PM.IMPN ---
Progress Note: A&P Assessment and Plan (1) Acute and chronic respiratory failure: Code(s): J96.20 - Acute and chronic respiratory failure, unspecified whether with hypoxia or hypercapnia Status: Acute Assessment and Plan: Chronic respiratory failure secondary to COPD. Typically on 3.5 L. Acute respiratory failure secondary to COVID-19 pneumonia Requiring 9 L per nasal cannula and maintaining adequate O2 sats Continue supplemental O2 as needed with goal saturation 90% or above. Wean to goal Appreciate pulmonology consultation He is agreeable to intubation should this be required (2) Pneumonia due to COVID-19 virus: Code(s): U07.1 - COVID-19; J12.82 - Pneumonia due to coronavirus disease 2018 Status: Acute Assessment and Plan: Positive COVID test on 06/24/2021. CXR showed extensive patchy bilateral infiltrates Continue isolation precautions Dexamethasone and remdesivir #5 today. Will continue with an additional 5 days of remdesivir. Monitor LFTs. Continue supplemental O2 as needed. Supportive care to include bronchodilators, expectorants, antipyretics, incentive spirometry Despite increased O2 requirements yesterday up to 9 L, he is not a candidate for Baricitinib due to his acute on chronic renal failure with GFR 26. Monitor inflammatory markers intermittently Patient has not been vaccinated for COVID-19 (3) Congestive heart failure: Code(s): I50.9 - Heart failure, unspecified Status: Acute Assessment and Plan: History of CHF initially felt to be in acute diastolic exacerbation Echo showed EF 55-60% with grade 1 diastolic dysfunction He had symptomatic improvement with IV Lasix. Continue Lasix 40 mg PO once daily. Monitor intake and output and daily weights Heart healthy diet Continue home carvedilol and lisinopril Patient reportedly quit taking his diuretics at home. He will need to be discharged on Lasix He is established with paper sorter, Dr. Means, with whom he will need to follow-up as an outpatient (4) Chronic renal disease: Code(s): N18.9 - Chronic kidney disease, unspecified Status: Acute Assessment and Plan: Review of prior labs indicates baseline around 2.0-2.3. Baseline GFR 30-35. Patient is established with manufacturing technician, Dr. Espinosa Slight increase in creatinine, likely due to need for diuretics. Creatinine remaining stable with once daily furosemide Monitor renal function closely while on Remdesivir Renally dose medications and avoid nephrotoxic agents (5) Essential (primary) hypertension: Code(s): I10 - Essential (primary) hypertension Status: Acute Assessment and Plan: Blood pressure reviewed and has been generally well controlled. Last BP 148/82 Continue home regimen of carvedilol, lisinopril, hydralazine Monitor blood pressure trends and adjust medication regimen as needed (6) SHERWIN on CPAP: Code(s): G47.33 - Obstructive sleep apnea (adult) (pediatric); Z99.89 - Dependence on other enabling machines and devices Status: Acute Assessment and Plan: CPAP as per home settings (7) Lung nodule: Code(s): R91.1 - Solitary pulmonary nodule Status: Acute Assessment and Plan: Noted on a CT from 2019 4mm left lung base and 3mm left upper lobe peripherally Continue outpatient follow up (8) COPD (chronic obstructive pulmonary disease): Code(s): J44.9 - Chronic obstructive pulmonary disease, unspecified Status: Acute Assessment and Plan: Not in acute exacerbation. No wheezing Continue home maintenance inhalers Albuterol as needed (9) Urinary obstruction: Code(s): N13.9 - Obstructive and reflux uropathy, unspecified Status: Acute Assessment and Plan: Chronic urinary outflow obstruction He self caths at home Urinary catheter initiated during admission (12fr Coude) Subjective Date/mary
[2021-07-03] MEDS: LATANOPROST 0.005% OP SOLN 2.5 ML BTL 1 DROP EACH EYE (18:21)
[2021-07-03] MEDS: ENOXAPARIN 40 MG/0.4 ML SYRINGE SUB-Q (20:30)
[2021-07-04] VITALS (8 sets, daily range): BP systolic 114–146; BP diastolic 65–77; PULSE 68–82; RESP 16–20; TEMP 36.3–36.8; O2SAT 88–94
[2021-07-04] MEDS: hydrALAZINE HCL 50 MG TABLET 100 MG BY MOUTH ×3 (05:48→20:49)
[2021-07-04] MEDS: HYDROcodone/acetaminophen (*CRX) 10-325 MG TABLET 1 TAB PO ×3 (07:28→20:49)
[2021-07-04 07:50] LABS: Alanine Aminotransferase 53 U/L (4-50); Albumin Level 3.3 g/dL (3.5-5.1); Alkaline Phosphatase 114 U/L (38-126); Anion Gap 8 mmol/L (8-16); Aspartate Amino Transferase 40 U/L (17-59); Bilirubin,Total 0.9 mg/dL (0.2-1.3); Blood Urea Nitrogen 61 mg/dL (9-20); Calcium 8.5 mg/dL (8.4-10.2); Carbon Dioxide 32 mmol/L (22-30); Chloride 94 mmol/L (98-107); Estimated CRCL calculation 34 ml/min; Estimated Glomerular Filt Rate 27; Glucose 103 mg/dL (65-110); Potassium 4.3 mmol/L (3.4-5.0); Sodium 134 mmol/L (137-145)
[2021-07-04 08:06] LABS: Hematocrit 40.8 % (42.0-52.0); Hemoglobin 13.8 g/dL (14.0-18.0); Mean Corpuscular HGB Conc 33.8 g/dl (32-36); Mean Corpuscular Hemoglobin 29.7 pg (26-34); Mean Corpuscular Volume 87.7 fl (80-100); Mean Platelet Volume 10.2 fl (7.4-10.4); Platelet Count Result 514 k/mm3 (150-375); Red Blood Count 4.65 M/mm3 (4.6-6.20); Red Cell Distribution Width 14.3 % (11.5-14.5); White Blood Count 19.5 K/mm3 (4.5-10.0)
[2021-07-04] MEDS: POTASSIUM CHLORIDE 20 MEQ TABLET.ER BY MOUTH (08:09)
[2021-07-04] MEDS: carvediloL 25 MG TABLET BY MOUTH ×2 (08:09→20:51)
[2021-07-04] MEDS: SIMVASTATIN 20 MG TABLET 40 MG PO (08:09)
[2021-07-04] MEDS: ASPIRIN 81 MG ENTERIC TABLET PO (08:09)
[2021-07-04] MEDS: MONTELUKAST SODIUM 10 MG TABLET PO (08:09)
[2021-07-04] MEDS: lisinopriL 20 MG TABLET PO (08:09)
[2021-07-04] MEDS: DULoxetine HCL 60 MG CAPSULE.DR BY MOUTH (08:10)
[2021-07-04] MEDS: FUROSEMIDE 40 MG TABLET PO (08:10)
[2021-07-04] MEDS: DORZOLAMIDE/TIMOLOL OPHTH SOL 10 ML BOTTLE 1 DROP EACH EYE ×2 (08:10→20:50)
[2021-07-04 09:11] LABS: INR 1.1; Prothrombin Time 13.6 Seconds (11.1-14.7)
[2021-07-04] MEDS: LATANOPROST 0.005% OP SOLN 2.5 ML BTL 1 DROP EACH EYE (17:31)
--- NOTE | 2021-07-04 17:40 | P.PNIM_ITS ---
Progress Note: A&P Assessment and Plan (1) Acute and chronic respiratory failure: Code(s): J96.20 - Acute and chronic respiratory failure, unspecified whether with hypoxia or hypercapnia Status: Acute Assessment and Plan: Chronic respiratory failure secondary to COPD. Typically on 3.5 L. Acute respiratory failure secondary to COVID-19 pneumonia * Requiring 9 L per nasal cannula and maintaining adequate O2 sats * Continue supplemental O2 as needed with goal saturation 90% or above. Wean to goal * Appreciate pulmonology consultation * He is agreeable to intubation should this be required (2) Pneumonia due to COVID-19 virus: Code(s): U07.1 - COVID-19; J12.82 - Pneumonia due to coronavirus disease 2019 Status: Acute Assessment and Plan: Positive COVID test on 06/24/2021. CXR showed extensive patchy bilateral infiltrates * Continue isolation precautions * Dexamethasone and remdesivir #6 today. Continuing remdesivir for an additional 5 days. Monitor LFTs. He is receiving remdesivir 50 mg daily for renal dosing based on his GFR; discussed with pharmacy * Continue supplemental O2 as needed. * Supportive care to include bronchodilators, expectorants, antipyretics, incentive spirometry * Despite increased O2 requirements up to 9 L, he is not a candidate for Baricitinib due to his acute on chronic renal failure with GFR <30. * Monitor inflammatory markers intermittently * Patient has not been vaccinated for COVID-19 (3) Congestive heart failure: Code(s): I50.9 - Heart failure, unspecified Status: Acute Assessment and Plan: History of CHF initially felt to be in acute diastolic exacerbation * Echo showed EF 55-60% with grade 1 diastolic dysfunction * He had symptomatic improvement with IV Lasix. * Continue Lasix 40 mg PO once daily. * Monitor intake and output and daily weights * Heart healthy diet * Continue home carvedilol and lisinopril * Patient reportedly quit taking his diuretics at home. He will need to be discharged on Lasix * He is established with medical management trainer, Dr. Means, with whom he will need to follow-up as an outpatient (4) Chronic renal disease: Code(s): N18.9 - Chronic kidney disease, unspecified Status: Acute Assessment and Plan: Review of prior labs indicates baseline around 2.0-2.3. Baseline GFR 30-35. * Patient is established with transformer shop supervisor, Dr. Espinosa * Slight increase in creatinine, likely due to need for diuretics. Creatinine remaining stable with once daily furosemide * Monitor renal function closely while on Remdesivir * Renally dose medications and avoid nephrotoxic agents (5) Essential (primary) hypertension: Code(s): I10 - Essential (primary) hypertension Status: Acute Assessment and Plan: Blood pressure reviewed and has been generally well controlled. Last BP 114/65 * Continue home regimen of carvedilol, lisinopril, hydralazine * Monitor blood pressure trends and adjust medication regimen as needed (6) SHERWIN on CPAP: Code(s): G47.33 - Obstructive sleep apnea (adult) (pediatric); Z99.89 - Dependence on other enabling machines and devices Status: Acute Assessment and Plan: CPAP as per home settings (7) Lung nodule: Code(s): R91.1 - Solitary pulmonary nodule Status: Acute Assessment and Plan: Noted on a CT from 2019 * 4mm left lung base and 3mm left upper lobe peripherally * Continue outpatient follow up (8) COPD (chronic obstructive pulmonary disease): Cod
--- NOTE | 2021-07-04 17:40 | PM.IMPN ---
Progress Note: A&P Assessment and Plan (1) Acute and chronic respiratory failure: Code(s): J96.20 - Acute and chronic respiratory failure, unspecified whether with hypoxia or hypercapnia Status: Acute Assessment and Plan: Chronic respiratory failure secondary to COPD. Typically on 3.5 L. Acute respiratory failure secondary to COVID-19 pneumonia Requiring 9 L per nasal cannula and maintaining adequate O2 sats Continue supplemental O2 as needed with goal saturation 90% or above. Wean to goal Appreciate pulmonology consultation He is agreeable to intubation should this be required (2) Pneumonia due to COVID-19 virus: Code(s): U07.1 - COVID-19; J12.82 - Pneumonia due to coronavirus disease 2019 Status: Acute Assessment and Plan: Positive COVID test on 06/24/2021. CXR showed extensive patchy bilateral infiltrates Continue isolation precautions Dexamethasone and remdesivir #6 today. Continuing remdesivir for an additional 5 days. Monitor LFTs. He is receiving remdesivir 50 mg daily for renal dosing based on his GFR; discussed with pharmacy Continue supplemental O2 as needed. Supportive care to include bronchodilators, expectorants, antipyretics, incentive spirometry Despite increased O2 requirements up to 9 L, he is not a candidate for Baricitinib due to his acute on chronic renal failure with GFR <30. Monitor inflammatory markers intermittently Patient has not been vaccinated for COVID-19 (3) Congestive heart failure: Code(s): I50.9 - Heart failure, unspecified Status: Acute Assessment and Plan: History of CHF initially felt to be in acute diastolic exacerbation Echo showed EF 55-60% with grade 1 diastolic dysfunction He had symptomatic improvement with IV Lasix. Continue Lasix 40 mg PO once daily. Monitor intake and output and daily weights Heart healthy diet Continue home carvedilol and lisinopril Patient reportedly quit taking his diuretics at home. He will need to be discharged on Lasix He is established with machine baster, Dr. Means, with whom he will need to follow-up as an outpatient (4) Chronic renal disease: Code(s): N18.9 - Chronic kidney disease, unspecified Status: Acute Assessment and Plan: Review of prior labs indicates baseline around 2.0-2.3. Baseline GFR 30-35. Patient is established with line manager, Dr. Espinosa Slight increase in creatinine, likely due to need for diuretics. Creatinine remaining stable with once daily furosemide Monitor renal function closely while on Remdesivir Renally dose medications and avoid nephrotoxic agents (5) Essential (primary) hypertension: Code(s): I10 - Essential (primary) hypertension Status: Acute Assessment and Plan: Blood pressure reviewed and has been generally well controlled. Last BP 114/65 Continue home regimen of carvedilol, lisinopril, hydralazine Monitor blood pressure trends and adjust medication regimen as needed (6) SHERWIN on CPAP: Code(s): G47.33 - Obstructive sleep apnea (adult) (pediatric); Z99.89 - Dependence on other enabling machines and devices Status: Acute Assessment and Plan: CPAP as per home settings (7) Lung nodule: Code(s): R91.1 - Solitary pulmonary nodule Status: Acute Assessment and Plan: Noted on a CT from 2019 4mm left lung base and 3mm left upper lobe peripherally Continue outpatient follow up (8) COPD (chronic obstructive pulmonary disease): Code(s): J44.9 - Chronic obstructive pulmonary disease, unspecified Status: Acute Assessment and Plan: Not in acute exacerbation. No wheezing Continue home maintenance inhalers Albuterol as needed (9) Urinary obstruction: Code(s): N13.9 - Obstructive and reflux uropathy, unspecified Status: Acute Assessment and Plan: Chronic urinary outflow obstruction He self caths at home [place]
[2021-07-04] MEDS: ENOXAPARIN 40 MG/0.4 ML SYRINGE SUB-Q (20:50)
[2021-07-05] VITALS (10 sets, daily range): BP systolic 108–132; BP diastolic 59–71; PULSE 66–87; RESP 20; TEMP 36.5–36.9; O2SAT 88–92
[2021-07-05] MEDS: hydrALAZINE HCL 50 MG TABLET 100 MG BY MOUTH ×3 (06:25→20:44)
[2021-07-05] MEDS: HYDROcodone/acetaminophen (*CRX) 10-325 MG TABLET 1 TAB PO ×3 (06:25→18:52)
[2021-07-05 07:34] LABS: Hematocrit 40.5 % (42.0-52.0); Hemoglobin 13.5 g/dL (14.0-18.0); Mean Corpuscular HGB Conc 33.3 g/dl (32-36); Mean Corpuscular Hemoglobin 29.2 pg (26-34); Mean Corpuscular Volume 87.5 fl (80-100); Mean Platelet Volume 9.9 fl (7.4-10.4); Platelet Count Result 504 k/mm3 (150-375); Red Blood Count 4.63 M/mm3 (4.6-6.20); Red Cell Distribution Width 14.4 % (11.5-14.5); White Blood Count 16.8 K/mm3 (4.5-10.0)
[2021-07-05 07:46] LABS: INR 1.1; Prothrombin Time 14.2 Seconds (11.1-14.7)
[2021-07-05 07:51] LABS: Alanine Aminotransferase 51 U/L (4-50); Albumin Level 3.3 g/dL (3.5-5.1); Alkaline Phosphatase 96 U/L (38-126); Anion Gap 10 mmol/L (8-16); Aspartate Amino Transferase 42 U/L (17-59); Bilirubin,Total 1.1 mg/dL (0.2-1.3); Blood Urea Nitrogen 53 mg/dL (9-20); Calcium 8.2 mg/dL (8.4-10.2); Carbon Dioxide 29 mmol/L (22-30); Chloride 93 mmol/L (98-107); Estimated CRCL calculation 40 ml/min; Estimated Glomerular Filt Rate 34; Glucose 103 mg/dL (65-110); Potassium 4.8 mmol/L (3.4-5.0); Sodium 132 mmol/L (137-145)
--- NOTE | 2021-07-05 08:26 | PCNWS ---
Weekly nutritional screen. Patient is tolerating current diet with adequate intake. No weight loss reported. No nutritional needs at this time.
[2021-07-05] MEDS: ASPIRIN 81 MG ENTERIC TABLET PO (10:22)
[2021-07-05] MEDS: SIMVASTATIN 20 MG TABLET 40 MG PO (10:23)
[2021-07-05] MEDS: carvediloL 25 MG TABLET BY MOUTH ×2 (10:23→20:41)
[2021-07-05] MEDS: FUROSEMIDE 40 MG TABLET PO (10:23)
[2021-07-05] MEDS: POTASSIUM CHLORIDE 20 MEQ TABLET.ER BY MOUTH (10:23)
[2021-07-05] MEDS: DULoxetine HCL 60 MG CAPSULE.DR BY MOUTH (10:23)
[2021-07-05] MEDS: lisinopriL 20 MG TABLET PO (10:23)
[2021-07-05] MEDS: MONTELUKAST SODIUM 10 MG TABLET PO (10:23)
[2021-07-05] MEDS: DORZOLAMIDE/TIMOLOL OPHTH SOL 10 ML BOTTLE 1 DROP EACH EYE ×2 (10:27→20:43)
--- NOTE | 2021-07-05 14:22 | P.PNIM_ITS ---
Progress Note: A&P Assessment and Plan (1) Acute and chronic respiratory failure: Code(s): J96.20 - Acute and chronic respiratory failure, unspecified whether with hypoxia or hypercapnia Status: Acute Assessment and Plan: Chronic respiratory failure secondary to COPD. Typically on 3.5 L. Acute respiratory failure secondary to COVID-19 pneumonia * Requiring 9 L per nasal cannula and maintaining adequate O2 sats * Continue supplemental O2 as needed with goal saturation 90% or above. Wean to goal * Appreciate pulmonology consultation * He is agreeable to intubation should this be required (2) Pneumonia due to COVID-19 virus: Code(s): U07.1 - COVID-19; J12.82 - Pneumonia due to coronavirus disease 2019 Status: Acute Assessment and Plan: Positive COVID test on 06/24/2021. CXR showed extensive patchy bilateral infiltrates * Continue isolation precautions * Dexamethasone and remdesivir #7 today. Continuing remdesivir for an additional 3 days. Monitor LFTs. He is receiving remdesivir 50 mg daily for renal dosing based on his GFR; discussed with pharmacy * Continue supplemental O2 as needed. * Supportive care to include bronchodilators, expectorants, antipyretics, incentive spirometry * Despite increased O2 requirements up to 9 L, he is not a candidate for Baricitinib due to his acute on chronic renal failure with GFR <30. * Monitor inflammatory markers intermittently * Patient has not been vaccinated for COVID-19 (3) Congestive heart failure: Code(s): I50.9 - Heart failure, unspecified Status: Acute Assessment and Plan: History of CHF initially felt to be in acute diastolic exacerbation * Echo showed EF 55-60% with grade 1 diastolic dysfunction * He had symptomatic improvement with IV Lasix. * Continue Lasix 40 mg PO once daily. * Monitor intake and output and daily weights * Heart healthy diet * Continue home carvedilol and lisinopril * Patient reportedly quit taking his diuretics at home. He will need to be discharged on Lasix * He is established with blasting coal miner, Dr. Means, with whom he will need to follow-up as an outpatient (4) Chronic renal disease: Code(s): N18.9 - Chronic kidney disease, unspecified Status: Acute Assessment and Plan: Review of prior labs indicates baseline around 2.0-2.3. Baseline GFR 30-35. * Patient is established with network design architect, Dr. Espinosa * Slight increase in creatinine, likely due to need for diuretics. Creatinine remaining stable with once daily furosemide * Monitor renal function closely while on Remdesivir * Renally dose medications and avoid nephrotoxic agents (5) Essential (primary) hypertension: Code(s): I10 - Essential (primary) hypertension Status: Acute Assessment and Plan: Blood pressure reviewed and has been generally well controlled. Last BP 114/65 * Continue home regimen of carvedilol, lisinopril, hydralazine * Monitor blood pressure trends and adjust medication regimen as needed (6) SHERWIN on CPAP: Code(s): G47.33 - Obstructive sleep apnea (adult) (pediatric); Z99.89 - Dependence on other enabling machines and devices Status: Acute Assessment and Plan: CPAP as per home settings (7) Lung nodule: Code(s): R91.1 - Solitary pulmonary nodule Status: Acute Assessment and Plan: Noted on a CT from 2019 * 4mm left lung base and 3mm left upper lobe peripherally * Continue outpatient follow up (8) COPD (chronic obstructive pulmonary disease): Cod
--- NOTE | 2021-07-05 14:22 | PM.IMPN ---
Progress Note: A&P Assessment and Plan (1) Acute and chronic respiratory failure: Code(s): J96.20 - Acute and chronic respiratory failure, unspecified whether with hypoxia or hypercapnia Status: Acute Assessment and Plan: Chronic respiratory failure secondary to COPD. Typically on 3.5 L. Acute respiratory failure secondary to COVID-19 pneumonia Requiring 9 L per nasal cannula and maintaining adequate O2 sats Continue supplemental O2 as needed with goal saturation 90% or above. Wean to goal Appreciate pulmonology consultation He is agreeable to intubation should this be required (2) Pneumonia due to COVID-19 virus: Code(s): U07.1 - COVID-19; J12.82 - Pneumonia due to coronavirus disease 2019 Status: Acute Assessment and Plan: Positive COVID test on 06/24/2021. CXR showed extensive patchy bilateral infiltrates Continue isolation precautions Dexamethasone and remdesivir #7 today. Continuing remdesivir for an additional 3 days. Monitor LFTs. He is receiving remdesivir 50 mg daily for renal dosing based on his GFR; discussed with pharmacy Continue supplemental O2 as needed. Supportive care to include bronchodilators, expectorants, antipyretics, incentive spirometry Despite increased O2 requirements up to 9 L, he is not a candidate for Baricitinib due to his acute on chronic renal failure with GFR <30. Monitor inflammatory markers intermittently Patient has not been vaccinated for COVID-19 (3) Congestive heart failure: Code(s): I50.9 - Heart failure, unspecified Status: Acute Assessment and Plan: History of CHF initially felt to be in acute diastolic exacerbation Echo showed EF 55-60% with grade 1 diastolic dysfunction He had symptomatic improvement with IV Lasix. Continue Lasix 40 mg PO once daily. Monitor intake and output and daily weights Heart healthy diet Continue home carvedilol and lisinopril Patient reportedly quit taking his diuretics at home. He will need to be discharged on Lasix He is established with molding utility worker, Dr. Means, with whom he will need to follow-up as an outpatient (4) Chronic renal disease: Code(s): N18.9 - Chronic kidney disease, unspecified Status: Acute Assessment and Plan: Review of prior labs indicates baseline around 2.0-2.3. Baseline GFR 30-35. Patient is established with success coach, Dr. Espinosa Slight increase in creatinine, likely due to need for diuretics. Creatinine remaining stable with once daily furosemide Monitor renal function closely while on Remdesivir Renally dose medications and avoid nephrotoxic agents (5) Essential (primary) hypertension: Code(s): I10 - Essential (primary) hypertension Status: Acute Assessment and Plan: Blood pressure reviewed and has been generally well controlled. Last BP 114/65 Continue home regimen of carvedilol, lisinopril, hydralazine Monitor blood pressure trends and adjust medication regimen as needed (6) SHERWIN on CPAP: Code(s): G47.33 - Obstructive sleep apnea (adult) (pediatric); Z99.89 - Dependence on other enabling machines and devices Status: Acute Assessment and Plan: CPAP as per home settings (7) Lung nodule: Code(s): R91.1 - Solitary pulmonary nodule Status: Acute Assessment and Plan: Noted on a CT from 2019 4mm left lung base and 3mm left upper lobe peripherally Continue outpatient follow up (8) COPD (chronic obstructive pulmonary disease): Code(s): J44.9 - Chronic obstructive pulmonary disease, unspecified Status: Acute Assessment and Plan: Not in acute exacerbation. No wheezing Continue home maintenance inhalers Albuterol as needed (9) Urinary obstruction: Code(s): N13.9 - Obstructive and reflux uropathy, unspecified Status: Acute Assessment and Plan: Chronic urinary outflow obstruction He self caths at home [facility]
[2021-07-05] MEDS: LATANOPROST 0.005% OP SOLN 2.5 ML BTL 1 DROP EACH EYE (18:52)
[2021-07-05] MEDS: ENOXAPARIN 40 MG/0.4 ML SYRINGE SUB-Q (20:42)
[2021-07-06 04:00] VITALS: BP 114/59; PULSE 68; RESP 20; TEMP 36.4; O2SAT 91
[2021-07-06] MEDS: HYDROcodone/acetaminophen (*CRX) 10-325 MG TABLET 1 TAB PO ×3 (06:17→21:26)
[2021-07-06] MEDS: hydrALAZINE HCL 50 MG TABLET 100 MG BY MOUTH ×3 (06:17→21:24)
[2021-07-06 06:37] LABS: Basophils Absolute Auto 0.1 K/mm3 (0.0-0.1); Basophils Percent Auto 0.4 % (0.2-1.2); Eosinophils Percent Auto 0.1 % (0-4.4); Hematocrit 40.5 % (42.0-52.0); Hemoglobin 13.5 g/dL (14.0-18.0); Immature Granulocyte Absolute 0.34 K/mm3 (0.00-0.031); Immature Granulocyte Percent A 2.2 % (0-0.5); Immature Platelet Fraction Pct 5.5 % (0.9-11.2); Lymphocytes Absolute Auto 0.74 K/mm3 (0.9-3.2); Lymphocytes Percent Auto 4.9 % (18.3-44.2); Mean Corpuscular HGB Conc 33.3 g/dl (32-36); Mean Corpuscular Hemoglobin 28.8 pg (26-34); Mean Corpuscular Volume 86.4 fl (80-100); Mean Platelet Volume 10.5 fl (7.4-10.4); Monocytes Absolute Auto 1.2 K/mm3 (0.1-0.6); Monocytes Percent Auto 7.6 % (2.6-8.5); Neutrophils Absolute Auto 12.8 K/mm3 (1.3-6.7); Neutrophils Percent Auto 84.8 % (45.5-73.1); Platelet Count Result 428 k/mm3 (150-375); Red Blood Count 4.69 M/mm3 (4.6-6.20); Red Cell Distribution Width 14.2 % (11.5-14.5); White Blood Count 15.2 K/mm3 (4.5-10.0)
[2021-07-06 06:47] LABS: INR 1.1; Prothrombin Time 14.1 Seconds (11.1-14.7)
[2021-07-06 06:58] LABS: Alanine Aminotransferase 63 U/L (4-50); Albumin Level 3.5 g/dL (3.5-5.1); Alkaline Phosphatase 91 U/L (38-126); Anion Gap 6 mmol/L (8-16); Aspartate Amino Transferase 48 U/L (17-59); Bilirubin,Total 1.1 mg/dL (0.2-1.3); Blood Urea Nitrogen 54 mg/dL (9-20); CRP 8.2 mg/dL (<1.0); Calcium 8.3 mg/dL (8.4-10.2); Carbon Dioxide 28 mmol/L (22-30); Chloride 97 mmol/L (98-107); Estimated CRCL calculation 38 ml/min; Estimated Glomerular Filt Rate 32; Glucose 121 mg/dL (65-110); Sodium 131 mmol/L (137-145)
--- NOTE | 2021-07-06 07:29 | P.PNIM_ITS ---
Progress Note: A&P Assessment and Plan (1) Acute and chronic respiratory failure: Code(s): J96.20 - Acute and chronic respiratory failure, unspecified whether with hypoxia or hypercapnia Status: Acute Assessment and Plan: Chronic respiratory failure secondary to COPD. Typically on 3.5 L. Acute respiratory failure secondary to COVID-19 pneumonia * Requiring 9 L per nasal cannula and maintaining adequate O2 sats * Continue supplemental O2 as needed with goal saturation 90% or above. Wean to goal * Appreciate pulmonology consultation * He is agreeable to intubation should this be required (2) Pneumonia due to COVID-19 virus: Code(s): U07.1 - COVID-19; J12.82 - Pneumonia due to coronavirus disease 2019 Status: Acute Assessment and Plan: Positive COVID test on 06/24/2021. CXR showed extensive patchy bilateral infiltrates * Dexamethasone and remdesivir #8 today. Monitor LFTs. He is receiving remdesivir 50 mg daily for renal dosing based on his GFR; discussed with pharmacy * Continue supplemental O2 as needed. * Supportive care to include bronchodilators, expectorants, antipyretics, incentive spirometry * Despite increased O2 requirements up to 9 L, he is not a candidate for Baricitinib due to his acute on chronic renal failure * Monitor inflammatory markers intermittently * Patient has not been vaccinated for COVID-19 (3) Congestive heart failure: Code(s): I50.9 - Heart failure, unspecified Status: Acute Assessment and Plan: History of CHF initially felt to be in acute diastolic exacerbation * Echo showed EF 55-60% with grade 1 diastolic dysfunction * He had symptomatic improvement with IV Lasix. * Continue Lasix 40 mg PO once daily. * Monitor intake and output and daily weights * Heart healthy diet * Continue home carvedilol and lisinopril * Patient reportedly quit taking his diuretics at home 2 weeks prior to admission. He will need to resume on discharge * He is established with director of officiating, Dr. Means, with whom he will need to follow-up as an outpatient (4) Chronic renal disease: Code(s): N18.9 - Chronic kidney disease, unspecified Status: Acute Assessment and Plan: Review of prior labs indicates baseline around 2.0-2.3. Baseline GFR 30-35. * Patient is established with clinical immunologist, Dr. Espinosa * Slight increase in creatinine up to 2.5, likely due to need for diuretics. * Creatinine improved to baseline, 2.1 today. * Monitor renal function closely while on Remdesivir * Renally dose medications and avoid nephrotoxic agents (5) Essential (primary) hypertension: Code(s): I10 - Essential (primary) hypertension Status: Acute Assessment and Plan: Blood pressure reviewed and has been generally well controlled. Last BP 114/59 * Continue home regimen of carvedilol, lisinopril, hydralazine * Monitor blood pressure trends and adjust medication regimen as needed (6) SHERWIN on CPAP: Code(s): G47.33 - Obstructive sleep apnea (adult) (pediatric); Z99.89 - Dependence on other enabling machines and devices Status: Acute Assessment and Plan: CPAP as per home settings (7) Lung nodule: Code(s): R91.1 - Solitary pulmonary nodule Status: Acute Assessment and Plan: Noted on a CT from 2019 * 4mm left lung base and 3mm left upper lobe peripherally * Continue outpatient follow up (8) COPD (chronic obstructive pulmonary disease): Code(s): J44.9 - Chronic obstructive pulmonary disease, unspecified
--- NOTE | 2021-07-06 07:29 | PM.IMPN ---
Progress Note: A&P Assessment and Plan (1) Acute and chronic respiratory failure: Code(s): J96.20 - Acute and chronic respiratory failure, unspecified whether with hypoxia or hypercapnia Status: Acute Assessment and Plan: Chronic respiratory failure secondary to COPD. Typically on 3.5 L. Acute respiratory failure secondary to COVID-19 pneumonia Requiring 9 L per nasal cannula and maintaining adequate O2 sats Continue supplemental O2 as needed with goal saturation 90% or above. Wean to goal Appreciate pulmonology consultation He is agreeable to intubation should this be required (2) Pneumonia due to COVID-19 virus: Code(s): U07.1 - COVID-19; J12.82 - Pneumonia due to coronavirus disease 2018 Status: Acute Assessment and Plan: Positive COVID test on 06/24/2021. CXR showed extensive patchy bilateral infiltrates Dexamethasone and remdesivir #8 today. Monitor LFTs. He is receiving remdesivir 50 mg daily for renal dosing based on his GFR; discussed with pharmacy Continue supplemental O2 as needed. Supportive care to include bronchodilators, expectorants, antipyretics, incentive spirometry Despite increased O2 requirements up to 9 L, he is not a candidate for Baricitinib due to his acute on chronic renal failure Monitor inflammatory markers intermittently Patient has not been vaccinated for COVID-19 (3) Congestive heart failure: Code(s): I50.9 - Heart failure, unspecified Status: Acute Assessment and Plan: History of CHF initially felt to be in acute diastolic exacerbation Echo showed EF 55-60% with grade 1 diastolic dysfunction He had symptomatic improvement with IV Lasix. Continue Lasix 40 mg PO once daily. Monitor intake and output and daily weights Heart healthy diet Continue home carvedilol and lisinopril Patient reportedly quit taking his diuretics at home 2 weeks prior to admission. He will need to resume on discharge He is established with viscosity tester, Dr. Means, with whom he will need to follow-up as an outpatient (4) Chronic renal disease: Code(s): N18.9 - Chronic kidney disease, unspecified Status: Acute Assessment and Plan: Review of prior labs indicates baseline around 2.0-2.3. Baseline GFR 30-35. Patient is established with hyster machine operator, Dr. Espinosa Slight increase in creatinine up to 2.5, likely due to need for diuretics. Creatinine improved to baseline, 2.1 today. Monitor renal function closely while on Remdesivir Renally dose medications and avoid nephrotoxic agents (5) Essential (primary) hypertension: Code(s): I10 - Essential (primary) hypertension Status: Acute Assessment and Plan: Blood pressure reviewed and has been generally well controlled. Last BP 114/59 Continue home regimen of carvedilol, lisinopril, hydralazine Monitor blood pressure trends and adjust medication regimen as needed (6) SHERIWN on CPAP: Code(s): G47.33 - Obstructive sleep apnea (adult) (pediatric); Z99.89 - Dependence on other enabling machines and devices Status: Acute Assessment and Plan: CPAP as per home settings (7) Lung nodule: Code(s): R91.1 - Solitary pulmonary nodule Status: Acute Assessment and Plan: Noted on a CT from 2019 4mm left lung base and 3mm left upper lobe peripherally Continue outpatient follow up (8) COPD (chronic obstructive pulmonary disease): Code(s): J44.9 - Chronic obstructive pulmonary disease, unspecified Status: Acute Assessment and Plan: Not in acute exacerbation. No wheezing Continue home maintenance inhalers Albuterol as needed (9) Urinary obstruction: Code(s): N13.9 - Obstructive and reflux uropathy, unspecified Status: Acute Assessment and Plan: Chronic urinary outflow obstruction He self caths at home Urinary catheter initiated during admission (12fr Coude). Continue
[2021-07-06 08:00] VITALS: BP 133/71; PULSE 69; RESP 20; TEMP 36.3; O2SAT 89; O2SAT 92
[2021-07-06] MEDS: POTASSIUM CHLORIDE 20 MEQ TABLET.ER BY MOUTH (08:17)
[2021-07-06] MEDS: carvediloL 25 MG TABLET BY MOUTH ×2 (08:17→21:25)
[2021-07-06] MEDS: lisinopriL 20 MG TABLET PO (08:17)
[2021-07-06] MEDS: MONTELUKAST SODIUM 10 MG TABLET PO (08:17)
[2021-07-06] MEDS: ASPIRIN 81 MG ENTERIC TABLET PO (08:17)
[2021-07-06] MEDS: SIMVASTATIN 20 MG TABLET 40 MG PO (08:17)
[2021-07-06] MEDS: FUROSEMIDE 40 MG TABLET PO (08:17)
[2021-07-06] MEDS: DORZOLAMIDE/TIMOLOL OPHTH SOL 10 ML BOTTLE 1 DROP EACH EYE ×2 (08:18→21:26)
[2021-07-06] MEDS: DULoxetine HCL 60 MG CAPSULE.DR BY MOUTH (08:19)
[2021-07-06 11:12] VITALS: BP 130/66; PULSE 70; RESP 20; TEMP 36.4; O2SAT 91
[2021-07-06 16:00] VITALS: BP 129/63; PULSE 78; RESP 18; TEMP 36.4; O2SAT 91
[2021-07-06] MEDS: LATANOPROST 0.005% OP SOLN 2.5 ML BTL 1 DROP EACH EYE (18:19)
[2021-07-06 20:00] VITALS: BP 137/66; PULSE 73; RESP 20; TEMP 36.6; O2SAT 90
[2021-07-06] MEDS: ENOXAPARIN 40 MG/0.4 ML SYRINGE SUB-Q (21:24)
[2021-07-06 21:25] VITALS: PULSE 70
[2021-07-07] VITALS (8 sets, daily range): BP systolic 108–150; BP diastolic 57–79; PULSE 66–81; RESP 16–20; TEMP 36.3–36.6; O2SAT 90–93
[2021-07-07] MEDS: hydrALAZINE HCL 50 MG TABLET 100 MG BY MOUTH ×3 (06:01→20:36)
[2021-07-07] MEDS: carvediloL 25 MG TABLET BY MOUTH ×2 (08:10→20:36)
[2021-07-07] MEDS: DULoxetine HCL 60 MG CAPSULE.DR BY MOUTH (08:10)
[2021-07-07] MEDS: HYDROcodone/acetaminophen (*CRX) 10-325 MG TABLET 1 TAB PO ×3 (08:10→20:38)
[2021-07-07] MEDS: FUROSEMIDE 40 MG TABLET PO (08:10)
[2021-07-07] MEDS: lisinopriL 20 MG TABLET PO (08:10)
[2021-07-07] MEDS: DORZOLAMIDE/TIMOLOL OPHTH SOL 10 ML BOTTLE 1 DROP EACH EYE ×2 (08:11→20:36)
[2021-07-07] MEDS: MONTELUKAST SODIUM 10 MG TABLET PO (08:11)
[2021-07-07] MEDS: SIMVASTATIN 20 MG TABLET 40 MG PO (08:11)
[2021-07-07] MEDS: POTASSIUM CHLORIDE 20 MEQ TABLET.ER BY MOUTH (08:11)
[2021-07-07] MEDS: ASPIRIN 81 MG ENTERIC TABLET PO (08:11)
[2021-07-07 08:42] LABS: Hematocrit 41.5 % (42.0-52.0); Mean Corpuscular HGB Conc 33.7 g/dl (32-36); Mean Corpuscular Hemoglobin 29.9 pg (26-34); Mean Corpuscular Volume 88.7 fl (80-100); Mean Platelet Volume 10.3 fl (7.4-10.4); Platelet Count Result 439 k/mm3 (150-375); Red Blood Count 4.68 M/mm3 (4.6-6.20); Red Cell Distribution Width 14.3 % (11.5-14.5); White Blood Count 17.1 K/mm3 (4.5-10.0)
[2021-07-07 09:07] LABS: INR 1.1; Prothrombin Time 14.1 Seconds (11.1-14.7)
[2021-07-07 09:11] LABS: Alanine Aminotransferase 68 U/L (4-50); Albumin Level 3.4 g/dL (3.5-5.1); Alkaline Phosphatase 108 U/L (38-126); Anion Gap 8 mmol/L (8-16); Aspartate Amino Transferase 47 U/L (17-59); Bilirubin,Total 0.9 mg/dL (0.2-1.3); Blood Urea Nitrogen 50 mg/dL (9-20); CRP 4.4 mg/dL (<1.0); Calcium 8.5 mg/dL (8.4-10.2); Carbon Dioxide 29 mmol/L (22-30); Chloride 95 mmol/L (98-107); Estimated CRCL calculation 36 ml/min; Estimated Glomerular Filt Rate 30; Glucose 103 mg/dL (65-110); Potassium 4.6 mmol/L (3.4-5.0); Sodium 132 mmol/L (137-145)
--- NOTE | 2021-07-07 12:10 | PM.IMPN ---
Progress Note: A&P Assessment and Plan (1) Acute and chronic respiratory failure: Code(s): J96.20 - Acute and chronic respiratory failure, unspecified whether with hypoxia or hypercapnia Status: Acute Assessment and Plan: Chronic respiratory failure secondary to COPD. Typically on 3.5 L. Acute respiratory failure secondary to COVID-19 pneumonia Requiring 9 L per nasal cannula and maintaining adequate O2 sats Continue supplemental O2 as needed with goal saturation 90% or above. Wean to goal Appreciate pulmonology consultation He is agreeable to intubation should this be required (2) Pneumonia due to COVID-19 virus: Code(s): U07.1 - COVID-19; J12.82 - Pneumonia due to coronavirus disease 2018 Status: Acute Assessment and Plan: Positive COVID test on 06/24/2021. CXR showed extensive patchy bilateral infiltrates Dexamethasone and remdesivir #9 today. Monitor LFTs. He is receiving remdesivir 50 mg daily for renal dosing based on his GFR; discussed with pharmacy Continue supplemental O2 as needed. Supportive care to include bronchodilators, expectorants, antipyretics, incentive spirometry Despite increased O2 requirements up to 9 L, he is not a candidate for Baricitinib due to his acute on chronic renal failure Monitor inflammatory markers intermittently Patient has not been vaccinated for COVID-19 (3) Congestive heart failure: Code(s): I50.9 - Heart failure, unspecified Status: Acute Assessment and Plan: History of CHF initially felt to be in acute diastolic exacerbation Echo showed EF 55-60% with grade 1 diastolic dysfunction He had symptomatic improvement with IV Lasix. Continue Lasix 40 mg PO once daily. Monitor intake and output and daily weights Heart healthy diet Continue home carvedilol and lisinopril Patient reportedly quit taking his diuretics at home 2 weeks prior to admission. He will need to resume on discharge He is established with supervisor cleaning and annealing, Dr. Means, with whom he will need to follow-up as an outpatient (4) Chronic renal disease: Code(s): N18.9 - Chronic kidney disease, unspecified Status: Acute Assessment and Plan: Review of prior labs indicates baseline around 2.0-2.3. Baseline GFR 30-35. Patient is established with bag maker, Dr. Espinosa Slight increase in creatinine up to 2.5, likely due to need for diuretics. Creatinine improved to baseline, 2.2 today. Monitor renal function closely while on Remdesivir Renally dose medications and avoid nephrotoxic agents (5) Essential (primary) hypertension: Code(s): I10 - Essential (primary) hypertension Status: Acute Assessment and Plan: Blood pressure reviewed and has been generally well controlled. Last BP 111/57 Continue home regimen of carvedilol, lisinopril, hydralazine Monitor blood pressure trends and adjust medication regimen as needed (6) SHERWIN on CPAP: Code(s): G47.33 - Obstructive sleep apnea (adult) (pediatric); Z99.89 - Dependence on other enabling machines and devices Status: Acute Assessment and Plan: CPAP as per home settings (7) Lung nodule: Code(s): R91.1 - Solitary pulmonary nodule Status: Acute Assessment and Plan: Noted on a CT from 2019 4mm left lung base and 3mm left upper lobe peripherally Continue outpatient follow up (8) COPD (chronic obstructive pulmonary disease): Code(s): J44.9 - Chronic obstructive pulmonary disease, unspecified Status: Acute Assessment and Plan: Not in acute exacerbation. No wheezing Continue home maintenance inhalers Albuterol as needed (9) Urinary obstruction: Code(s): N13.9 - Obstructive and reflux uropathy, unspecified Status: Acute Assessment and Plan: Chronic urinary outflow obstruction He self caths at home Urinary catheter initiated during admission (12fr Coude). Continue
--- NOTE | 2021-07-07 12:10 | P.PNIM_ITS ---
Progress Note: A&P Assessment and Plan (1) Acute and chronic respiratory failure: Code(s): J96.20 - Acute and chronic respiratory failure, unspecified whether with hypoxia or hypercapnia Status: Acute Assessment and Plan: Chronic respiratory failure secondary to COPD. Typically on 3.5 L. Acute respiratory failure secondary to COVID-19 pneumonia * Requiring 9 L per nasal cannula and maintaining adequate O2 sats * Continue supplemental O2 as needed with goal saturation 90% or above. Wean to goal * Appreciate pulmonology consultation * He is agreeable to intubation should this be required (2) Pneumonia due to COVID-19 virus: Code(s): U07.1 - COVID-19; J12.82 - Pneumonia due to coronavirus disease 2019 Status: Acute Assessment and Plan: Positive COVID test on 06/24/2021. CXR showed extensive patchy bilateral infiltrates * Dexamethasone and remdesivir #9 today. Monitor LFTs. He is receiving remdesivir 50 mg daily for renal dosing based on his GFR; discussed with pharmacy * Continue supplemental O2 as needed. * Supportive care to include bronchodilators, expectorants, antipyretics, incentive spirometry * Despite increased O2 requirements up to 9 L, he is not a candidate for Baricitinib due to his acute on chronic renal failure * Monitor inflammatory markers intermittently * Patient has not been vaccinated for COVID-19 (3) Congestive heart failure: Code(s): I50.9 - Heart failure, unspecified Status: Acute Assessment and Plan: History of CHF initially felt to be in acute diastolic exacerbation * Echo showed EF 55-60% with grade 1 diastolic dysfunction * He had symptomatic improvement with IV Lasix. * Continue Lasix 40 mg PO once daily. * Monitor intake and output and daily weights * Heart healthy diet * Continue home carvedilol and lisinopril * Patient reportedly quit taking his diuretics at home 2 weeks prior to admission. He will need to resume on discharge * He is established with gear inspector, Dr. Means, with whom he will need to follow-up as an outpatient (4) Chronic renal disease: Code(s): N18.9 - Chronic kidney disease, unspecified Status: Acute Assessment and Plan: Review of prior labs indicates baseline around 2.0-2.3. Baseline GFR 30-35. * Patient is established with supervisor properties, Dr. Espinosa * Slight increase in creatinine up to 2.5, likely due to need for diuretics. * Creatinine improved to baseline, 2.2 today. * Monitor renal function closely while on Remdesivir * Renally dose medications and avoid nephrotoxic agents (5) Essential (primary) hypertension: Code(s): I10 - Essential (primary) hypertension Status: Acute Assessment and Plan: Blood pressure reviewed and has been generally well controlled. Last BP 111/57 * Continue home regimen of carvedilol, lisinopril, hydralazine * Monitor blood pressure trends and adjust medication regimen as needed (6) SHERWIN on CPAP: Code(s): G47.33 - Obstructive sleep apnea (adult) (pediatric); Z99.89 - Dependence on other enabling machines and devices Status: Acute Assessment and Plan: CPAP as per home settings (7) Lung nodule: Code(s): R91.1 - Solitary pulmonary nodule Status: Acute Assessment and Plan: Noted on a CT from 2019 * 4mm left lung base and 3mm left upper lobe peripherally * Continue outpatient follow up (8) COPD (chronic obstructive pulmonary disease): Code(s): J44.9 - Chronic obstructive pulmonary disease, unspecified
[2021-07-07] MEDS: LATANOPROST 0.005% OP SOLN 2.5 ML BTL 1 DROP EACH EYE (17:36)
[2021-07-07] MEDS: ENOXAPARIN 40 MG/0.4 ML SYRINGE SUB-Q (20:36)
[2021-07-08] VITALS (9 sets, daily range): BP systolic 121–134; BP diastolic 69–86; PULSE 63–91; RESP 16–21; TEMP 35.8–36.6; O2SAT 92
[2021-07-08] MEDS: HYDROcodone/acetaminophen (*CRX) 10-325 MG TABLET 1 TAB PO ×3 (06:20→19:55)
[2021-07-08 07:54] LABS: Hematocrit 40.3 % (42.0-52.0); Hemoglobin 13.4 g/dL (14.0-18.0); Mean Corpuscular HGB Conc 33.3 g/dl (32-36); Mean Corpuscular Hemoglobin 29.1 pg (26-34); Mean Corpuscular Volume 87.4 fl (80-100); Mean Platelet Volume 10.9 fl (7.4-10.4); Platelet Count Result 406 k/mm3 (150-375); Red Blood Count 4.61 M/mm3 (4.6-6.20); Red Cell Distribution Width 14.1 % (11.5-14.5); White Blood Count 16.9 K/mm3 (4.5-10.0)
[2021-07-08 08:01] LABS: Prothrombin Time 13.4 Seconds (11.1-14.7)
[2021-07-08 08:16] LABS: Alanine Aminotransferase 64 U/L (4-50); Albumin Level 3.2 g/dL (3.5-5.1); Alkaline Phosphatase 99 U/L (38-126); Anion Gap 3 mmol/L (8-16); Aspartate Amino Transferase 42 U/L (17-59); Blood Urea Nitrogen 49 mg/dL (9-20); Calcium 8.3 mg/dL (8.4-10.2); Carbon Dioxide 29 mmol/L (22-30); Chloride 98 mmol/L (98-107); Estimated CRCL calculation 40 ml/min; Estimated Glomerular Filt Rate 34; Glucose 93 mg/dL (65-110); Potassium 5.3 mmol/L (3.4-5.0); Sodium 130 mmol/L (137-145)
[2021-07-08] MEDS: MONTELUKAST SODIUM 10 MG TABLET PO (08:19)
[2021-07-08] MEDS: SIMVASTATIN 20 MG TABLET 40 MG PO (08:19)
[2021-07-08] MEDS: FUROSEMIDE 40 MG TABLET PO (08:19)
[2021-07-08] MEDS: POTASSIUM CHLORIDE 20 MEQ TABLET.ER BY MOUTH (08:19)
[2021-07-08] MEDS: lisinopriL 20 MG TABLET PO (08:19)
[2021-07-08] MEDS: ASPIRIN 81 MG ENTERIC TABLET PO (08:20)
[2021-07-08] MEDS: DORZOLAMIDE/TIMOLOL OPHTH SOL 10 ML BOTTLE 1 DROP EACH EYE ×2 (08:20→22:15)
[2021-07-08] MEDS: carvediloL 25 MG TABLET BY MOUTH ×2 (08:20→19:55)
[2021-07-08] MEDS: hydrALAZINE HCL 50 MG TABLET 100 MG BY MOUTH ×3 (08:20→23:29)
[2021-07-08] MEDS: DULoxetine HCL 60 MG CAPSULE.DR BY MOUTH (10:13)
[2021-07-08] MEDS: ALBUTEROL SULFATE NEB 2.5 MG/0.5 ML INH INHALATION ×2 (13:41→21:15)
[2021-07-08] MEDS: IPRATROPIUM BR 0.02% INH SOLN 0.5 MG/2.5 ML VIAL INHALATION ×2 (13:42→21:15)
--- NOTE | 2021-07-08 14:33 | P.PNIM_ITS ---
Progress Note: A&P Assessment and Plan (1) Acute and chronic respiratory failure: Code(s): J96.20 - Acute and chronic respiratory failure, unspecified whether with hypoxia or hypercapnia Status: Acute Assessment and Plan: Chronic respiratory failure secondary to COPD. Typically on 3.5 L. Acute respiratory failure secondary to COVID-19 pneumonia * Requiring 9-15 L per nasal cannula to maintain adequate O2 sats * Continue supplemental O2 as needed with goal saturation 90% or above. Wean to goal * Will need to repeat ABG if not improving. * Appreciate pulmonology consultation * He is agreeable to intubation should this be required (2) Pneumonia due to COVID-19 virus: Code(s): U07.1 - COVID-19; J12.82 - Pneumonia due to coronavirus disease 2019 Status: Acute Assessment and Plan: Positive COVID test on 06/24/2021. CXR showed extensive patchy bilateral infiltrates * Dexamethasone and remdesivir #10 today. Monitor LFTs. He was receiving remdesivir 50 mg daily for renal dosing based on his GFR. Did not restart the Remdesivir for a 3rd round, but did continue the Dexamethasone. * Continue supplemental O2 as needed. * Supportive care to include bronchodilators, expectorants, antipyretics, incentive spirometry, mucinex, and Duonebulizer treatments. * Diurese as renal function allows. * Despite increased O2 requirements up to 15 L, he is not a candidate for Baricitinib due to his acute on chronic renal failure * Monitor inflammatory markers intermittently * Patient has not been vaccinated for COVID-19 (3) Congestive heart failure: Code(s): I50.9 - Heart failure, unspecified Status: Acute Assessment and Plan: History of CHF initially felt to be in acute diastolic exacerbation * Echo showed EF 55-60% with grade 1 diastolic dysfunction * He had symptomatic improvement with IV Lasix. * Continue Lasix 40 mg PO once daily. Give extra lasix doses as renal function allows. * Rechecking BNP levels, elevated. * Monitor intake and output and daily weights * Heart healthy diet * Continue home carvedilol and lisinopril * Patient reportedly quit taking his diuretics at home 2 weeks prior to admission. He will need to resume on discharge * He is established with quality review trainer, Dr. Means, with whom he will need to follow-up as an outpatient (4) Chronic renal disease: Code(s): N18.9 - Chronic kidney disease, unspecified Status: Acute Assessment and Plan: Review of prior labs indicates baseline around 2.0-2.3. Baseline GFR 30-35. * Patient is established with tool keeper, Dr. Espinosa * Slight increase in creatinine up to 2.5, stopped Statin. May need to HOLD lisinopril too. * Creatinine improved to baseline, 2.0 today. * Monitor renal function closely now , after the Remdesivir * Renally dose medications and avoid nephrotoxic agents (5) Essential (primary) hypertension: Code(s): I10 - Essential (primary) hypertension Status: Acute Assessment and Plan: Blood pressure reviewed and has been generally well controlled. Last BP 126/71, HR 63 * Continue home regimen of carvedilol, lisinopril, hydralazine * Monitor blood pressure trends and adjust medication regimen as needed (6) SHERWIN on CPAP: Code(s): G47.33 - Obstructive sleep apnea (adult) (pediatric); Z99.89 - Dependence on other enabling machines and devices Status: Acute Assessment and Plan: CPAP as per home settings (7) Lung nodule: Code(s): R91.1 - Solitary pulmonary nodule Status: Acut
--- NOTE | 2021-07-08 14:33 | PM.IMPN ---
Progress Note: A&P Assessment and Plan (1) Acute and chronic respiratory failure: Code(s): J96.20 - Acute and chronic respiratory failure, unspecified whether with hypoxia or hypercapnia Status: Acute Assessment and Plan: Chronic respiratory failure secondary to COPD. Typically on 3.5 L. Acute respiratory failure secondary to COVID-19 pneumonia Requiring 9-15 L per nasal cannula to maintain adequate O2 sats Continue supplemental O2 as needed with goal saturation 90% or above. Wean to goal Will need to repeat ABG if not improving. Appreciate pulmonology consultation He is agreeable to intubation should this be required (2) Pneumonia due to COVID-19 virus: Code(s): U07.1 - COVID-19; J12.82 - Pneumonia due to coronavirus disease 2019 Status: Acute Assessment and Plan: Positive COVID test on 06/24/2021. CXR showed extensive patchy bilateral infiltrates Dexamethasone and remdesivir #10 today. Monitor LFTs. He was receiving remdesivir 50 mg daily for renal dosing based on his GFR. Did not restart the Remdesivir for a 3rd round, but did continue the Dexamethasone. Continue supplemental O2 as needed. Supportive care to include bronchodilators, expectorants, antipyretics, incentive spirometry, mucinex, and Duonebulizer treatments. Diurese as renal function allows. Despite increased O2 requirements up to 15 L, he is not a candidate for Baricitinib due to his acute on chronic renal failure Monitor inflammatory markers intermittently Patient has not been vaccinated for COVID-19 (3) Congestive heart failure: Code(s): I50.9 - Heart failure, unspecified Status: Acute Assessment and Plan: History of CHF initially felt to be in acute diastolic exacerbation Echo showed EF 55-60% with grade 1 diastolic dysfunction He had symptomatic improvement with IV Lasix. Continue Lasix 40 mg PO once daily. Give extra lasix doses as renal function allows. Rechecking BNP levels, elevated. Monitor intake and output and daily weights Heart healthy diet Continue home carvedilol and lisinopril Patient reportedly quit taking his diuretics at home 2 weeks prior to admission. He will need to resume on discharge He is established with manager behavioral, Dr. Means, with whom he will need to follow-up as an outpatient (4) Chronic renal disease: Code(s): N18.9 - Chronic kidney disease, unspecified Status: Acute Assessment and Plan: Review of prior labs indicates baseline around 2.0-2.3. Baseline GFR 30-35. Patient is established with cake batter mixer, Dr. Espinosa Slight increase in creatinine up to 2.5, stopped Statin. May need to HOLD lisinopril too. Creatinine improved to baseline, 2.0 today. Monitor renal function closely now , after the Remdesivir Renally dose medications and avoid nephrotoxic agents (5) Essential (primary) hypertension: Code(s): I10 - Essential (primary) hypertension Status: Acute Assessment and Plan: Blood pressure reviewed and has been generally well controlled. Last BP 126/71, HR 63 Continue home regimen of carvedilol, lisinopril, hydralazine Monitor blood pressure trends and adjust medication regimen as needed (6) SHERWIN on CPAP: Code(s): G47.33 - Obstructive sleep apnea (adult) (pediatric); Z99.89 - Dependence on other enabling machines and devices Status: Acute Assessment and Plan: CPAP as per home settings (7) Lung nodule: Code(s): R91.1 - Solitary pulmonary nodule Status: Acute Assessment and Plan: Noted on a CT from 2019 4mm left lung base and 3mm left upper lobe peripherally Continue outpatient follow up (8) COPD (chronic obstructive pulmonary disease): Code(s): J44.9 - Chronic obstructive pulmonary disease, unspecified Status: Acute Assessment and Plan: Not in acute exacerbation. No wheezing Continue home maintenance inhalers Albuterol
[2021-07-08] MEDS: guaiFENesin 12 HR 600 MG TABCR 1200 MG PO (17:06)
[2021-07-08] MEDS: LATANOPROST 0.005% OP SOLN 2.5 ML BTL 1 DROP EACH EYE (17:06)
[2021-07-08] MEDS: ENOXAPARIN 40 MG/0.4 ML SYRINGE SUB-Q (19:55)
[2021-07-09] VITALS (13 sets, daily range): BP systolic 117–141; BP diastolic 63–79; PULSE 64–98; RESP 18–20; TEMP 36.2–37.1; O2SAT 83–96
[2021-07-09] MEDS: ALBUTEROL SULFATE NEB 2.5 MG/0.5 ML INH INHALATION ×4 (03:48→22:20)
[2021-07-09] MEDS: IPRATROPIUM BR 0.02% INH SOLN 0.5 MG/2.5 ML VIAL INHALATION ×4 (03:48→22:20)
[2021-07-09] MEDS: HYDROcodone/acetaminophen (*CRX) 10-325 MG TABLET 1 TAB PO ×3 (04:52→20:02)
[2021-07-09] MEDS: WATER FOR IRRIGATION, STERILE 1,000 ML BOTTLE 1000 ML (04:55)
[2021-07-09] MEDS: hydrALAZINE HCL 50 MG TABLET 100 MG BY MOUTH ×3 (04:55→22:14)
[2021-07-09] MEDS: guaiFENesin 12 HR 600 MG TABCR 1200 MG PO ×2 (04:55→17:04)
[2021-07-09 06:44] LABS: Basophils Percent Auto 0.2 % (0.2-1.2); Eosinophils Absolute Auto 0.1 K/mm3 (0-0.3); Eosinophils Percent Auto 0.3 % (0-4.4); Hematocrit 42.6 % (42.0-52.0); Hemoglobin 14.1 g/dL (14.0-18.0); Immature Granulocyte Absolute 0.24 K/mm3 (0.00-0.031); Immature Granulocyte Percent A 1.2 % (0-0.5); Lymphocytes Absolute Auto 0.97 K/mm3 (0.9-3.2); Lymphocytes Percent Auto 4.9 % (18.3-44.2); Mean Corpuscular HGB Conc 33.1 g/dl (32-36); Mean Corpuscular Hemoglobin 29.3 pg (26-34); Mean Corpuscular Volume 88.4 fl (80-100); Mean Platelet Volume 10.5 fl (7.4-10.4); Monocytes Absolute Auto 1.8 K/mm3 (0.1-0.6); Monocytes Percent Auto 9.4 % (2.6-8.5); Neutrophils Absolute Auto 16.5 K/mm3 (1.3-6.7); Platelet Count Result 396 k/mm3 (150-375); Red Blood Count 4.82 M/mm3 (4.6-6.20); Red Cell Distribution Width 14.1 % (11.5-14.5); White Blood Count 19.6 K/mm3 (4.5-10.0)
[2021-07-09 07:05] LABS: Alanine Aminotransferase 64 U/L (4-50); Albumin Level 3.5 g/dL (3.5-5.1); Alkaline Phosphatase 108 U/L (38-126); Anion Gap 2 mmol/L (8-16); Aspartate Amino Transferase 41 U/L (17-59); Bilirubin,Total 1.1 mg/dL (0.2-1.3); Blood Urea Nitrogen 47 mg/dL (9-20); Calcium 8.5 mg/dL (8.4-10.2); Carbon Dioxide 33 mmol/L (22-30); Chloride 94 mmol/L (98-107); Estimated CRCL calculation 40 ml/min; Estimated Glomerular Filt Rate 34; Glucose 111 mg/dL (65-110); Magnesium 1.9 mg/dL (1.6-2.3); Phosphorus 3.8 mg/dL (2.5-4.5); Potassium 5.1 mmol/L (3.4-5.0); Sodium 129 mmol/L (137-145)
[2021-07-09 07:32] LABS: CRP 5.8 mg/dL (<1.0); Lactate Dehydrogenase 1148 U/L (313-618)
[2021-07-09 07:38] LABS: NT Pro B Type Natriuretic Pept 233 pg/mL (5-100)
[2021-07-09] MEDS: MONTELUKAST SODIUM 10 MG TABLET PO (08:44)
[2021-07-09] MEDS: lisinopriL 20 MG TABLET PO (08:44)
[2021-07-09] MEDS: carvediloL 25 MG TABLET BY MOUTH ×2 (08:44→20:00)
[2021-07-09] MEDS: ASPIRIN 81 MG ENTERIC TABLET PO (08:44)
[2021-07-09] MEDS: FUROSEMIDE 40 MG TABLET PO (08:45)
[2021-07-09] MEDS: DULoxetine HCL 60 MG CAPSULE.DR BY MOUTH (08:45)
[2021-07-09] MEDS: DORZOLAMIDE/TIMOLOL OPHTH SOL 10 ML BOTTLE 1 DROP EACH EYE ×2 (08:45→20:13)
--- NOTE | 2021-07-09 08:45 | PM.IMPN ---
Progress Note: A&P Assessment and Plan (1) Acute and chronic respiratory failure: Code(s): J96.20 - Acute and chronic respiratory failure, unspecified whether with hypoxia or hypercapnia Status: Acute Assessment and Plan: Chronic respiratory failure secondary to COPD. Typically on 3.5 L. Acute respiratory failure secondary to COVID-19 pneumonia [id number] L per high flow nasal cannula and 4-6L nonrebreather to maintain adequate O2 sats Continue supplemental O2 as needed with goal saturation 90% or above. Wean to goal Will need to repeat ABG if not improving. Appreciate pulmonology consultation He is agreeable to intubation should this be required (2) Pneumonia due to COVID-19 virus: Code(s): U07.1 - COVID-19; J12.82 - Pneumonia due to coronavirus disease 2018 Status: Acute Assessment and Plan: Positive COVID test on 06/24/2021. CXR showed extensive patchy bilateral infiltrates Dexamethasone and remdesivir #10 today. Monitor LFTs. He was receiving remdesivir 50 mg daily for renal dosing based on his GFR. Did not restart the Remdesivir for a 3rd round, but did continue the Dexamethasone. Continue supplemental O2 as needed. Supportive care to include bronchodilators, expectorants, antipyretics, incentive spirometry, mucinex, and Duonebulizer treatments. Diurese as renal function allows. Despite increased O2 requirements up to 15 L, he is not a candidate for Baricitinib due to his acute on chronic renal failure Monitor inflammatory markers ferritin 964, LDH 1148, CRP 5.8 Patient has not been vaccinated for COVID-19 Chest xray 07/09/21 Diffuse lung disease with mild worsening on the right consistent with PNA (3) Congestive heart failure: Code(s): I50.9 - Heart failure, unspecified Status: Acute Assessment and Plan: History of CHF initially felt to be in acute diastolic exacerbation Echo showed EF 55-60% with grade 1 diastolic dysfunction He had symptomatic improvement with IV Lasix. Continue Lasix 40 mg PO once daily. give one time IV lasix 40mg Rechecking BNP levels, 233 Monitor intake and output and daily weights Heart healthy diet Continue home carvedilol and lisinopril Patient reportedly quit taking his diuretics at home 2 weeks prior to admission. He will need to resume on discharge He is established with concrete foreman, Dr. Means, with whom he will need to follow-up as an outpatient (4) Chronic renal disease: Code(s): N18.9 - Chronic kidney disease, unspecified Status: Acute Assessment and Plan: Review of prior labs indicates baseline around 2.0-2.3. Baseline GFR 30-35. Patient is established with crack off person, Dr. Espinosa Slight increase in creatinine up to 2.5, stopped Statin. May need to HOLD lisinopril too. Creatinine improved to baseline, 2.0 today. Monitor renal function closely now, after the Remdesivir Renally dose medications and avoid nephrotoxic agents (5) Essential (primary) hypertension: Code(s): I10 - Essential (primary) hypertension Status: Acute Assessment and Plan: Blood pressure reviewed and has been generally well controlled. Last BP 122/67, HR 91 Continue home regimen of carvedilol, lisinopril, hydralazine Monitor blood pressure trends and adjust medication regimen as needed (6) SHERWIN on CPAP: Code(s): G47.33 - Obstructive sleep apnea (adult) (pediatric); Z99.89 - Dependence on other enabling machines and devices Status: Acute Assessment and Plan: CPAP as per home settings (7) Lung nodule: Code(s): R91.1 - Solitary pulmonary nodule Status: Acute Assessment and Plan: Noted on a CT from 2019 4mm left lung base and 3mm left upper lobe peripherally Continue outpatient follow up (8) COPD (chronic obstructive pulmonary disease): Code(s): J44.9 - Chronic obstructive pulmonary disease, unspecified Status: Acute
--- NOTE | 2021-07-09 08:45 | P.PNIM_ITS ---
Progress Note: A&P Assessment and Plan (1) Acute and chronic respiratory failure: Code(s): J96.20 - Acute and chronic respiratory failure, unspecified whether with hypoxia or hypercapnia Status: Acute Assessment and Plan: Chronic respiratory failure secondary to COPD. Typically on 3.5 L. Acute respiratory failure secondary to COVID-19 pneumonia * [id number] L per high flow nasal cannula and 4-6L nonrebreather to maintain adequate O2 sats * Continue supplemental O2 as needed with goal saturation 90% or above. Wean to goal * Will need to repeat ABG if not improving. * Appreciate pulmonology consultation * He is agreeable to intubation should this be required (2) Pneumonia due to COVID-19 virus: Code(s): U07.1 - COVID-19; J12.82 - Pneumonia due to coronavirus disease 2018 Status: Acute Assessment and Plan: Positive COVID test on 06/24/2021. CXR showed extensive patchy bilateral infiltrates * Dexamethasone and remdesivir #10 today. Monitor LFTs. He was receiving remdesivir 50 mg daily for renal dosing based on his GFR. Did not restart the Remdesivir for a 3rd round, but did continue the Dexamethasone. * Continue supplemental O2 as needed. * Supportive care to include bronchodilators, expectorants, antipyretics, incentive spirometry, mucinex, and Duonebulizer treatments. * Diurese as renal function allows. * Despite increased O2 requirements up to 15 L, he is not a candidate for Baricitinib due to his acute on chronic renal failure * Monitor inflammatory markers ferritin 964, LDH 1148, CRP 5.8 * Patient has not been vaccinated for COVID-19 * Chest xray 07/09/21 Diffuse lung disease with mild worsening on the right consistent with PNA (3) Congestive heart failure: Code(s): I50.9 - Heart failure, unspecified Status: Acute Assessment and Plan: History of CHF initially felt to be in acute diastolic exacerbation * Echo showed EF 55-60% with grade 1 diastolic dysfunction * He had symptomatic improvement with IV Lasix. * Continue Lasix 40 mg PO once daily. give one time IV lasix 40mg * Rechecking BNP levels, 233 * Monitor intake and output and daily weights * Heart healthy diet * Continue home carvedilol and lisinopril * Patient reportedly quit taking his diuretics at home 2 weeks prior to admission. He will need to resume on discharge * He is established with meter tester, Dr. Means, with whom he will need to follow-up as an outpatient (4) Chronic renal disease: Code(s): N18.9 - Chronic kidney disease, unspecified Status: Acute Assessment and Plan: Review of prior labs indicates baseline around 2.0-2.3. Baseline GFR 30-35. * Patient is established with tunneling machine operator, Dr. Espinosa * Slight increase in creatinine up to 2.5, stopped Statin. May need to HOLD lisinopril too. * Creatinine improved to baseline, 2.0 today. * Monitor renal function closely now, after the Remdesivir * Renally dose medications and avoid nephrotoxic agents (5) Essential (primary) hypertension: Code(s): I10 - Essential (primary) hypertension Status: Acute Assessment and Plan: Blood pressure reviewed and has been generally well controlled. Last BP 122/67, HR 91 * Continue home regimen of carvedilol, lisinopril, hydralazine * Monitor blood pressure trends and adjust medication regimen as needed (6) SHERWIN on CPAP: Code(s): G47.33 - Obstructive sleep apnea (adult) (pediatric); Z99.89 - Dependence on other enabling machines and devices Status: Acute Assessment and Plan: CPAP as per home set
--- NOTE | 2021-07-09 11:14 | PC.NURSE ---
Pt requiring pain medication be renewed, one time dose given this morning, called provider Brenton Stephen TOOL OR DIE DRAWING CHECKER for norco 10/325 mg po prn q6hrs per pt request.
--- NOTE | 2021-07-09 11:23 | PC.NURSE ---
LARRY Stephen to renew [facility] order.
[2021-07-09] MEDS: FUROSEMIDE INJ 40 MG/4 ML VIAL IV PUSH (12:25)
[2021-07-09 13:37] LABS: Procalcitonin 0.3 ng/mL
--- NOTE | 2021-07-09 14:14 | PC.NURSE ---
UA and sputum collected sent to lab for analysis.
[2021-07-09] MEDS: LATANOPROST 0.005% OP SOLN 2.5 ML BTL 1 DROP EACH EYE (17:04)
[2021-07-09] MEDS: ENOXAPARIN 40 MG/0.4 ML SYRINGE SUB-Q (20:04)
[2021-07-10] VITALS (15 sets, daily range): BP systolic 84–125; BP diastolic 46–74; PULSE 71–102; RESP 18–22; TEMP 36.1–36.8; O2SAT 81–93
[2021-07-10] MEDS: ALBUTEROL SULFATE NEB 2.5 MG/0.5 ML INH INHALATION ×3 (03:34→13:49)
[2021-07-10] MEDS: IPRATROPIUM BR 0.02% INH SOLN 0.5 MG/2.5 ML VIAL INHALATION ×3 (03:35→13:49)
[2021-07-10] MEDS: hydrALAZINE HCL 50 MG TABLET 100 MG BY MOUTH ×3 (06:16→22:41)
[2021-07-10] MEDS: guaiFENesin 12 HR 600 MG TABCR 1200 MG PO ×2 (06:16→17:35)
[2021-07-10 06:40] LABS: Basophils Absolute Auto 0.1 K/mm3 (0.0-0.1); Basophils Percent Auto 0.3 % (0.2-1.2); Eosinophils Absolute Auto 0.1 K/mm3 (0-0.3); Eosinophils Percent Auto 0.3 % (0-4.4); Hematocrit 41.2 % (42.0-52.0); Hemoglobin 13.8 g/dL (14.0-18.0); Immature Granulocyte Absolute 0.32 K/mm3 (0.00-0.031); Immature Granulocyte Percent A 1.6 % (0-0.5); Lymphocytes Absolute Auto 0.92 K/mm3 (0.9-3.2); Lymphocytes Percent Auto 4.6 % (18.3-44.2); Mean Corpuscular HGB Conc 33.5 g/dl (32-36); Mean Corpuscular Hemoglobin 29.2 pg (26-34); Mean Corpuscular Volume 87.3 fl (80-100); Mean Platelet Volume 10.5 fl (7.4-10.4); Monocytes Percent Auto 10.1 % (2.6-8.5); Neutrophils Absolute Auto 16.5 K/mm3 (1.3-6.7); Neutrophils Percent Auto 83.1 % (45.5-73.1); Platelet Count Result 375 k/mm3 (150-375); Red Blood Count 4.72 M/mm3 (4.6-6.20); Red Cell Distribution Width 14.1 % (11.5-14.5); White Blood Count 19.9 K/mm3 (4.5-10.0)
[2021-07-10 06:55] LABS: D Dimer 2.04 ug/mL (<0.48)
[2021-07-10 07:19] LABS: Alanine Aminotransferase 67 U/L (4-50); Albumin Level 3.4 g/dL (3.5-5.1); Alkaline Phosphatase 112 U/L (38-126); Anion Gap 5 mmol/L (8-16); Aspartate Amino Transferase 42 U/L (17-59); Blood Urea Nitrogen 60 mg/dL (9-20); Calcium 8.4 mg/dL (8.4-10.2); Carbon Dioxide 32 mmol/L (22-30); Chloride 93 mmol/L (98-107); Estimated CRCL calculation 31 ml/min; Estimated Glomerular Filt Rate 25; Glucose 123 mg/dL (65-110); Lactate Dehydrogenase 703 U/L (313-618); Potassium 4.7 mmol/L (3.4-5.0); Sodium 130 mmol/L (137-145)
[2021-07-10] MEDS: HYDROcodone/acetaminophen (*CRX) 10-325 MG TABLET 1 TAB PO ×3 (07:57→20:28)
[2021-07-10] MEDS: FUROSEMIDE 40 MG TABLET PO (07:58)
[2021-07-10] MEDS: carvediloL 25 MG TABLET BY MOUTH ×2 (07:58→20:29)
[2021-07-10] MEDS: ASPIRIN 81 MG ENTERIC TABLET PO (07:58)
[2021-07-10] MEDS: DULoxetine HCL 60 MG CAPSULE.DR BY MOUTH (07:58)
[2021-07-10] MEDS: POTASSIUM CHLORIDE 20 MEQ TABLET.ER BY MOUTH (07:59)
[2021-07-10] MEDS: MONTELUKAST SODIUM 10 MG TABLET PO (07:59)
[2021-07-10] MEDS: lisinopriL 20 MG TABLET PO (07:59)
[2021-07-10] MEDS: BARICITINIB 1 MG TABLET PO (10:00)
[2021-07-10] MEDS: DORZOLAMIDE/TIMOLOL OPHTH SOL 10 ML BOTTLE 1 DROP EACH EYE ×2 (10:00→20:33)
--- NOTE | 2021-07-10 10:00 | P.PNIM_ITS ---
Progress Note: A&P Assessment and Plan (1) Pneumonia due to COVID-19 virus: Code(s): U07.1 - COVID-19; J12.82 - Pneumonia due to coronavirus disease 2018 Status: Acute Assessment and Plan: Positive COVID test on 06/24/2021 * Dexamethasone increase to BID for now and remdesivir 50mg based on GFR #10 * LFT: AST/ALT 42/67 * Continue supplemental O2 as needed. * Supportive care to include bronchodilators, expectorants, antipyretics, incentive spirometry, mucinex, and Duonebulizer treatments. * One dose of lasix given yesterday, will repeat onetime dose today * Despite increased O2 requirements up to 15 L, * Start baricitinib 1mg based on a GFR of 34 * Monitor inflammatory markers ferritin still pending, LDH 703, CRP 12.0, Dimer 2.04 * Patient has not been vaccinated for COVID-19 * Chest xray 07/09/21 Diffuse lung disease with mild worsening on the right consistent with PNA (2) Acute and chronic respiratory failure: Code(s): J96.20 - Acute and chronic respiratory failure, unspecified whether with hypoxia or hypercapnia Status: Acute Assessment and Plan: Chronic respiratory failure secondary to COPD. Typically on 3.5 L. Acute respiratory failure secondary to COVID-19 pneumonia * [id number] L per high flow nasal cannula and 10L nonrebreather to maintain adequate O2 sats * Continue supplemental O2 as needed with goal saturation 90% or above. Wean to goal * ABG showed pH 7.409, CO2 47.3, PO2 57.8, Saturation is 90.1, HCO3 29.2. Looks like a compensated respiratory alkalosis * Appreciate pulmonology consultation * He is agreeable to intubation should this be required (3) Hyperkalemia: Code(s): E87.5 - Hyperkalemia Status: Acute Assessment and Plan: * Potassium is 4.7 today, stablizing * could be from renal failure * continue trending labs (4) Pneumonia: Code(s): J18.9 - Pneumonia, unspecified organism Status: Acute Assessment and Plan: * Chest xray shows diffuse lung disease consistent with PNA * Will start azithromycin and ceftriaxone * WBC trending up, currently 19.9 * Sputum cultures pending * Blood cultures pending (5) Leukocytosis: Code(s): D72.829 - Elevated white blood cell count, unspecified Status: Acute Assessment and Plan: * WBC are elevated 19.6 * Trending up * Could be from steroids * procal 0.3, indicates that this is probably not infection related * CXR shows PNA (6) Congestive heart failure: Code(s): I50.9 - Heart failure, unspecified Status: Acute Assessment and Plan: History of CHF initially was in an acute diastolic exacerbation * Echo showed EF 55-60% with grade 1 diastolic dysfunction * Improvement with IV Lasix, changed to PO lasix 40mg Daily, consider IV lasix as symptom * Rechecking BNP levels, 233 * Monitor intake and output and daily weights * Heart healthy diet * Continue home carvedilol and lisinopril * Patient reportedly quit taking his diuretics at home 2 weeks prior to admission. He will need to resume on discharge * He is established with spray drier operator helper, Dr. Means, with whom he will need to follow-up as an outpatient (7) Chronic renal disease: Code(s): N18.9 - Chronic kidney disease, unspecified Status: Acute Assessment and Plan: Review of prior labs indicates baseline around 2.0-2.3. Baseline GFR 30-35. * Patient is established with fiber artist, Dr. Espinosa * Creatinine improved to
--- NOTE | 2021-07-10 10:00 | PM.IMPN ---
Progress Note: A&P Assessment and Plan (1) Pneumonia due to COVID-19 virus: Code(s): U07.1 - COVID-19; J12.82 - Pneumonia due to coronavirus disease 2018 Status: Acute Assessment and Plan: Positive COVID test on 06/24/2021 Dexamethasone increase to BID for now and remdesivir 50mg based on GFR #10 LFT: AST/ALT 42/67 Continue supplemental O2 as needed. Supportive care to include bronchodilators, expectorants, antipyretics, incentive spirometry, mucinex, and Duonebulizer treatments. One dose of lasix given yesterday, will repeat onetime dose today Despite increased O2 requirements up to 15 L, Start baricitinib 1mg based on a GFR of 34 Monitor inflammatory markers ferritin still pending, LDH 703, CRP 12.0, Dimer 2.04 Patient has not been vaccinated for COVID-19 Chest xray 07/09/21 Diffuse lung disease with mild worsening on the right consistent with PNA (2) Acute and chronic respiratory failure: Code(s): J96.20 - Acute and chronic respiratory failure, unspecified whether with hypoxia or hypercapnia Status: Acute Assessment and Plan: Chronic respiratory failure secondary to COPD. Typically on 3.5 L. Acute respiratory failure secondary to COVID-19 pneumonia [id number] L per high flow nasal cannula and 10L nonrebreather to maintain adequate O2 sats Continue supplemental O2 as needed with goal saturation 90% or above. Wean to goal ABG showed pH 7.409, CO2 47.3, PO2 57.8, Saturation is 90.1, HCO3 29.2. Looks like a compensated respiratory alkalosis Appreciate pulmonology consultation He is agreeable to intubation should this be required (3) Hyperkalemia: Code(s): E87.5 - Hyperkalemia Status: Acute Assessment and Plan: Potassium is 4.7 today, stablizing could be from renal failure continue trending labs (4) Pneumonia: Code(s): J18.9 - Pneumonia, unspecified organism Status: Acute Assessment and Plan: Chest xray shows diffuse lung disease consistent with PNA Will start azithromycin and ceftriaxone WBC trending up, currently 19.9 Sputum cultures pending Blood cultures pending (5) Leukocytosis: Code(s): D72.829 - Elevated white blood cell count, unspecified Status: Acute Assessment and Plan: WBC are elevated 19.6 Trending up Could be from steroids procal 0.3, indicates that this is probably not infection related CXR shows PNA (6) Congestive heart failure: Code(s): I50.9 - Heart failure, unspecified Status: Acute Assessment and Plan: History of CHF initially was in an acute diastolic exacerbation Echo showed EF 55-60% with grade 1 diastolic dysfunction Improvement with IV Lasix, changed to PO lasix 40mg Daily, consider IV lasix as symptom Rechecking BNP levels, 233 Monitor intake and output and daily weights Heart healthy diet Continue home carvedilol and lisinopril Patient reportedly quit taking his diuretics at home 2 weeks prior to admission. He will need to resume on discharge He is established with lead investigator, Dr. Means, with whom he will need to follow-up as an outpatient (7) Chronic renal disease: Code(s): N18.9 - Chronic kidney disease, unspecified Status: Acute Assessment and Plan: Review of prior labs indicates baseline around 2.0-2.3. Baseline GFR 30-35. Patient is established with director emergency department, Dr. Espinosa Creatinine improved to baseline, 2.6 today, probably elevated with lasix dose yesterday Monitor renal function closely now, after the Remdesivir Renally dose medications and avoid nephrotoxic agents (8) Essential (primary) hypertension: Code(s): I10 - Essential (primary) hypertension Status: Acute Assessment and Plan: Blood pressure reviewed and has been generally well controlled. Last BP 107/71, HR 84 Continue home regimen of carvedilol, lisinopril, hydralazine Monitor blood
--- NOTE | 2021-07-10 10:01 | PC.NURSE ---
Pt started on baricitinib for covid this shift will continue tx [id number]. Medication information sheet given to pt prior to receiving medication.
[2021-07-10 10:49] LABS: Alveolar/Arterial O2 Gradient 607.9 mmHg; Base Excess ABG 3.8 mEq/l (+/-2.0); Carboxyhemoglobin 1.3 % THb (0-2.0); Fractional Inspired Oxygen 100 %; HCO3 ABG 29.2 mEq/l (22.0-26.0); Methemoglobin ABG 0.3 %THb (0-1.5); Oxygen Content ABG 16.7 %vol (16.0-22.0); Oxygen Saturation ABG 90.1 % (95.0-100.0); PCO2 ABG 47.3 mmHg (35.0-45.0); PO2 ABG 57.8 mmHg (80.0-100.0); PO2 FiO2 Ratio Arterial Blood 0.58 %; Total Hemoglobin 13.6 g/dL (12.0-18.0)
[2021-07-10 10:50] LABS: Device NON-REBREATHER MASK; Modified Allen's Test Pass; Oxyhemoglobin 87.4 % THb (90.0-100.0); Site Drawn RIGHT RADIAL
[2021-07-10 10:51] LABS: pH ABG 7.409 (7.350-7.450)
--- NOTE | 2021-07-10 10:58 | PC.NURSE ---
abg reported to ADAPTED PHYSICAL EDUCATION SPECIALIST Zafar, N.N.O, keep o2 sat >90%, pt remaining at 10 HF and 10 NRB.
[2021-07-10] MEDS: LATANOPROST 0.005% OP SOLN 2.5 ML BTL 1 DROP EACH EYE (17:35)
[2021-07-10] MEDS: ALBUTEROL SULFATE (*SP) AEROSOL 1 PUFF 2 PUFF INHALATION (18:22)
--- NOTE | 2021-07-10 18:42 | PC.NURSE ---
Rapid response called pt o2 saturation 79% 10 HF 15 RNB, placed on 15 HF 15 NRB, pt had transfered himself back to bed and became sob. prn albuterol inhaler given. Pt increase to 88% then decrease to 85%. Dropped as low as 81%. This nurse encouraged slow deep breathers, respiratory and response team present. Pt remained at 85-86% and finally increase to 88-89%. MD Bauer aware.
[2021-07-10] MEDS: ENOXAPARIN 40 MG/0.4 ML SYRINGE SUB-Q (20:32)
[2021-07-10] MEDS: ALBUTEROL SULFATE (*SP) INHALER 2 PUFF INHALATION (21:20)
[2021-07-11] VITALS (16 sets, daily range): BP systolic 96–141; BP diastolic 57–83; PULSE 31–100; RESP 20–32; TEMP 36.2–36.9; O2SAT 86–92
[2021-07-11] MEDS: ALBUTEROL SULFATE (*SP) INHALER 2 PUFF INHALATION (02:18)
[2021-07-11 03:03] LABS: Alveolar/Arterial O2 Gradient 314.4 mmHg; Base Excess ABG 3.1 mEq/l (+/-2.0); Carboxyhemoglobin 1.7 % THb (0-2.0); Fractional Inspired Oxygen 60 %; HCO3 ABG 29.3 mEq/l (22.0-26.0); Methemoglobin ABG 0.3 %THb (0-1.5); Oxygen Content ABG 17.2 %vol (16.0-22.0); Oxygen Saturation ABG 89.2 % (95.0-100.0); PCO2 ABG 50.6 mmHg (35.0-45.0); PO2 ABG 57.7 mmHg (80.0-100.0); PO2 FiO2 Ratio Arterial Blood 0.96 %; Reduced Hemoglobin 11.1 %THb (0-5.0); Total Hemoglobin 14.1 g/dL (12.0-18.0)
[2021-07-11 03:05] LABS: Device HIGH FLOW NASAL CANN; Modified Allen's Test Pass; Oxyhemoglobin 86.9 % THb (90.0-100.0); Site Drawn RIGHT RADIAL
--- NOTE | 2021-07-11 03:23 | P.PNCROSS_ITS ---
Event Note Event Note Event Note: 07/11/2021 at 3:00 a.m. Nursing staff called pathology the patient was having persistent oxygen saturations between 84 and 88% on 15 L high-flow nasal cannula 15 L non- rebreather. The patient is known to be positive for COVID-19 and has history of COPD. Patient reports to me that he is happy at home with his oxygen saturations are between 86 and 88%. The patient does have obstructive sleep apnea and has been using CPAP at night until the night of the when his oxygen requirements became so high that he could not use the auto titrating CPAP and BiPAP. Is been since this time that he has been having increased events of hypoxia at night. At the time of my evaluation the patient's oxygen saturations were ranging between 84 and 88%. ABG was performed which demonstrated stable pCO2 and PO2 correlating to oxygen saturation of 89%. The patient is not in any increased distress. I discussed treatment options with the patient including Airvo and BiPAP and that he may need to be transferred to the intermediate unit depending on what his response to treatment is. Given that the patient is supposed be on CPAP at night I feel comfortable placing the patient on BiPAP while remaining on the medical floor. The BiPAP would replaces CPAP in then we would wean the patient high-flow nasal cannula and non-rebreather hopefully during the day and give him the respiratory support with the BiPAP at night. Will place patient on BiPAP 16/8 as his home CPAP settings are pressure of 15. Will place on 100% FiO2 and wean for goal saturations of 88%. I will be a backup rate of 16. Will aim for goal tidal volume 400-450. Patient has acute worsening hypoxic respiratory failure with chronic hypoxic hypercapnic respiratory failure. Worsening respiratory failure due to COVID 19 pneumonia. On exam patient is slightly diaphoretic, mildly tachypneic, decreased breath so unds at the bases, no accessory muscle use, mildly ill-appearing. Skin is cool to touch. After initiation of BiPAP therapy the patient was breathing much easier and had no further tachypnea. He appeared much more comfortable. The patient stated that he was on the fence about getting the COVID vaccine but now he plans on getting the COVID vaccine once he has recovered from his illness. The patient reiterates that if he cannot breathe on his own he would most definitely want to be intubated. He states that he has a fighter and wants to try everything. 30 minute spent in critical care activities. This case had a high probability of a clinically significant, sudden, or life threatening deterioration of this patient's condition which required my full and direct attention, intervention and personal management.
[2021-07-11] MEDS: HYDROcodone/acetaminophen (*CRX) 10-325 MG TABLET 1 TAB PO ×2 (03:36→20:51)
[2021-07-11] MEDS: hydrALAZINE HCL 50 MG TABLET 100 MG BY MOUTH ×2 (06:04→20:08)
[2021-07-11] MEDS: guaiFENesin 12 HR 600 MG TABCR 1200 MG PO (06:04)
[2021-07-11 07:25] LABS: Basophils Percent Auto 0.2 % (0.2-1.2); Eosinophils Percent Auto 0.1 % (0-4.4); Hematocrit 40.8 % (42.0-52.0); Hemoglobin 13.6 g/dL (14.0-18.0); Immature Granulocyte Absolute 0.32 K/mm3 (0.00-0.031); Immature Granulocyte Percent A 1.6 % (0-0.5); Lymphocytes Absolute Auto 0.82 K/mm3 (0.9-3.2); Mean Corpuscular HGB Conc 33.3 g/dl (32-36); Mean Corpuscular Hemoglobin 29.2 pg (26-34); Mean Corpuscular Volume 87.7 fl (80-100); Mean Platelet Volume 10.9 fl (7.4-10.4); Monocytes Percent Auto 9.8 % (2.6-8.5); Neutrophils Absolute Auto 17.4 K/mm3 (1.3-6.7); Neutrophils Percent Auto 84.3 % (45.5-73.1); Platelet Count Result 366 k/mm3 (150-375); Red Blood Count 4.65 M/mm3 (4.6-6.20); Red Cell Distribution Width 14.3 % (11.5-14.5); White Blood Count 20.6 K/mm3 (4.5-10.0)
[2021-07-11 07:34] LABS: Alanine Aminotransferase 61 U/L (4-50); Aspartate Amino Transferase 42 U/L (17-59); Estimated CRCL calculation 31 ml/min; Estimated Glomerular Filt Rate 25
--- NOTE | 2021-07-11 08:00 | PM.IMPN ---
Progress Note: A&P Assessment and Plan (1) Pneumonia due to COVID-19 virus: Code(s): U07.1 - COVID-19; J12.82 - Pneumonia due to coronavirus disease 2018 Status: Acute Assessment and Plan: Positive COVID test on 06/24/2021 Dexamethasone increase to BID for now and remdesivir 50mg based on GFR #10, completed LFT: AST/ALT 42/61 Continue supplemental O2 as needed, on BIPAP at this time Supportive care to include bronchodilators, expectorants, antipyretics, incentive spirometry, mucinex, and Duonebulizer treatments. Lasix has been given intermittently ABG shows compensated Resp alkalosis Start baricitinib 1mg based on a GFR of 25 Monitor inflammatory markers ferritin 1080, LDH 703, CRP 12, Dimer <0.22 Patient has not been vaccinated for COVID-19 Chest xray 07/09/21 Diffuse lung disease with mild worsening on the right consistent with PNA (2) Acute and chronic respiratory failure: Code(s): J96.20 - Acute and chronic respiratory failure, unspecified whether with hypoxia or hypercapnia Status: Acute Assessment and Plan: Chronic respiratory failure secondary to COPD. Typically on 3.5 L. Acute respiratory failure secondary to COVID-19 pneumonia Placed on Bipap overnight due to increase oxygen demand Continue supplemental O2 as needed with goal saturation 90% or above. Wean to goal ABG showed pH 7.380, CO2 50.6, PO2 57.7, Saturation is 89.2, HCO3 29.3. Looks like a compensated respiratory acidosis Bipap was increased per pulmonology to /, 100% Transfer to ICU Appreciate pulmonology consultation He is agreeable to intubation should this be required (3) Acute UTI: Code(s): N39.0 - Urinary tract infection, site not specified Status: Acute Assessment and Plan: Urine culture found enterococcus species Started vancomycin Monitor urine output Trend WBC (4) Pneumonia: Code(s): J18.9 - Pneumonia, unspecified organism Status: Acute Assessment and Plan: Chest xray shows diffuse lung disease consistent with PNA Changed to cefepime and vanco WBC trending up, currently 20.6 Sputum cultures no growth Blood cultures NGTD (5) Hyperkalemia: Code(s): E87.5 - Hyperkalemia Status: Acute Assessment and Plan: Potassium is 5.0 today could be from renal failure continue trending labs (6) Leukocytosis: Code(s): D72.829 - Elevated white blood cell count, unspecified Status: Acute Assessment and Plan: WBC are elevated 20.6 Trending up Could be from steroids Urine culture shows UTI with enterococcus species Vancomycin started to cover procal 0.3, indicates that this is probably not infection related CXR shows PNA (7) Congestive heart failure: Code(s): I50.9 - Heart failure, unspecified Status: Acute Assessment and Plan: History of CHF initially was in an acute diastolic exacerbation Echo showed EF 55-60% with grade 1 diastolic dysfunction Improvement with IV Lasix, changed to PO lasix 40mg Daily, consider IV lasix as symptom BNP 233 07/09/21 Monitor intake and output and daily weights Heart healthy diet Continue home carvedilol and lisinopril Patient reportedly quit taking his diuretics at home 2 weeks prior to admission. He will need to resume on discharge He is established with batter mixer, Dr. Means, with whom he will need to follow-up as an outpatient (8) Chronic renal disease: Code(s): N18.9 - Chronic kidney disease, unspecified Status: Acute Assessment and Plan: Review of prior labs indicates baseline around 2.0-2.3. Baseline GFR 30-35. Patient is established with administrative services director, Dr. Espinosa Creatinine improved to baseline, 2.5 today, probably elevated with lasix dose yesterday Monitor renal function closely now, after the Remdesivir Renally dose medications and avoid nephrotoxic agents (9)
--- NOTE | 2021-07-11 08:00 | P.PNIM_ITS ---
Progress Note: A&P Assessment and Plan (1) Pneumonia due to COVID-19 virus: Code(s): U07.1 - COVID-19; J12.82 - Pneumonia due to coronavirus disease 2018 Status: Acute Assessment and Plan: Positive COVID test on 06/24/2021 * Dexamethasone increase to BID for now and remdesivir 50mg based on GFR #10, completed * LFT: AST/ALT 42/61 * Continue supplemental O2 as needed, on BIPAP at this time * Supportive care to include bronchodilators, expectorants, antipyretics, incentive spirometry, mucinex, and Duonebulizer treatments. * Lasix has been given intermittently * ABG shows compensated Resp alkalosis * Start baricitinib 1mg based on a GFR of 25 * Monitor inflammatory markers ferritin 1080, LDH 703, CRP 12, Dimer <0.22 * Patient has not been vaccinated for COVID-19 * Chest xray 07/09/21 Diffuse lung disease with mild worsening on the right consistent with PNA (2) Acute and chronic respiratory failure: Code(s): J96.20 - Acute and chronic respiratory failure, unspecified whether with hypoxia or hypercapnia Status: Acute Assessment and Plan: Chronic respiratory failure secondary to COPD. Typically on 3.5 L. Acute respiratory failure secondary to COVID-19 pneumonia * Placed on Bipap overnight due to increase oxygen demand * Continue supplemental O2 as needed with goal saturation 90% or above. Wean to goal * ABG showed pH 7.380, CO2 50.6, PO2 57.7, Saturation is 89.2, HCO3 29.3. Looks like a compensated respiratory acidosis * Bipap was increased per pulmonology to 30/05, 100% * Transfer to ICU * Appreciate pulmonology consultation * He is agreeable to intubation should this be required (3) Acute UTI: Code(s): N39.0 - Urinary tract infection, site not specified Status: Acute Assessment and Plan: * Urine culture found enterococcus species * Started vancomycin * Monitor urine output * Trend WBC (4) Pneumonia: Code(s): J18.9 - Pneumonia, unspecified organism Status: Acute Assessment and Plan: * Chest xray shows diffuse lung disease consistent with PNA * Changed to cefepime and vanco * WBC trending up, currently 20.6 * Sputum cultures no growth * Blood cultures NGTD (5) Hyperkalemia: Code(s): E87.5 - Hyperkalemia Status: Acute Assessment and Plan: * Potassium is 5.0 today * could be from renal failure * continue trending labs (6) Leukocytosis: Code(s): D72.829 - Elevated white blood cell count, unspecified Status: Acute Assessment and Plan: * WBC are elevated 20.6 * Trending up * Could be from steroids * Urine culture shows UTI with enterococcus species * Vancomycin started to cover * procal 0.3, indicates that this is probably not infection related * CXR shows PNA (7) Congestive heart failure: Code(s): I50.9 - Heart failure, unspecified Status: Acute Assessment and Plan: History of CHF initially was in an acute diastolic exacerbation * Echo showed EF 55-60% with grade 1 diastolic dysfunction * Improvement with IV Lasix, changed to PO lasix 40mg Daily, consider IV lasix as symptom * BNP 233 07/09/21 * Monitor intake and output and daily weights * Heart healthy diet * Continue home carvedilol and lisinopril * Patient reportedly quit taking his diuretics at home 2 weeks prior to admission. He will need to resume on discharge * He is established with radio time salesperson, Dr. Means, with whom he will need to follow-up as
[2021-07-11] MEDS: DULoxetine HCL 60 MG CAPSULE.DR BY MOUTH (08:18)
[2021-07-11] MEDS: POTASSIUM CHLORIDE 20 MEQ TABLET.ER BY MOUTH (08:18)
[2021-07-11] MEDS: ASPIRIN 81 MG ENTERIC TABLET PO (08:18)
[2021-07-11] MEDS: MONTELUKAST SODIUM 10 MG TABLET PO (08:18)
[2021-07-11] MEDS: FUROSEMIDE 40 MG TABLET PO (08:18)
[2021-07-11] MEDS: lisinopriL 20 MG TABLET PO (08:18)
[2021-07-11] MEDS: carvediloL 25 MG TABLET BY MOUTH ×2 (08:19→20:08)
[2021-07-11] MEDS: DORZOLAMIDE/TIMOLOL OPHTH SOL 10 ML BOTTLE 1 DROP EACH EYE (08:29)
[2021-07-11] MEDS: BARICITINIB 1 MG TABLET PO (08:33)
[2021-07-11 08:39] LABS: D Dimer < 0.22 ug/mL (<0.48)
[2021-07-11 08:47] LABS: Alanine Aminotransferase 62 U/L (4-50); Albumin Level 3.3 g/dL (3.5-5.1); Alkaline Phosphatase 116 U/L (38-126); Anion Gap 7 mmol/L (8-16); Aspartate Amino Transferase 50 U/L (17-59); Bilirubin,Total 0.8 mg/dL (0.2-1.3); Blood Urea Nitrogen 69 mg/dL (9-20); Calcium 8.5 mg/dL (8.4-10.2); Carbon Dioxide 28 mmol/L (22-30); Chloride 94 mmol/L (98-107); Estimated CRCL calculation 32 ml/min; Estimated Glomerular Filt Rate 26; Glucose 133 mg/dL (65-110); Sodium 129 mmol/L (137-145)
--- NOTE | 2021-07-11 09:03 | PC.NURSE ---
Patient lying prone, on BIPAP, sats 90%.
--- NOTE | 2021-07-11 10:35 | WPDCNINT ---
Assessment and Plan Assessment and plan (1) Acute and chronic respiratory failure with hypoxia: Code(s): J96.21 - Acute and chronic respiratory failure with hypoxia Status: Acute Assessment and Plan: Acute Respiratory failure secondary to COVID 19 pneumonia with gradually worsening hypoxia Patient now placed on BiPAP 20/12 100% He is now on laying in prone position and his saturation improved to low 90s. Transferred to ICU and continue close monitoring. If continues to worsen or does not improve and become BiPAP dependent he will need intubation and mechanical ventilation. Patient is agreeable to intubation mechanical ventilation if needed Check chest x-ray. If patient remains stable will consider getting a CT chest without contrast Bronchodilators (2) COPD (chronic obstructive pulmonary disease): Code(s): J44.9 - Chronic obstructive pulmonary disease, unspecified Status: Acute Assessment and Plan: Not in exacerbation at this time Already on steroids Continue bronchodilators (3) Pneumonia due to COVID-19 virus: Code(s): U07.1 - COVID-19; J12.82 - Pneumonia due to coronavirus disease 2019 Status: Acute Assessment and Plan: Patient was tested positive 06/24 which was around 16 days ago. Patient has completed 10 day course of remdesivir Patient has all ready completed 10 day course of dexamethasone and was continued on 07/09 He was started on Barcitinib on 07/10. Since patient was started on this by close to 2 weeks after admission I am not sure if there is any proven benefit at this point I will check a CRP level Patient was also started on empiric antibiotics in the form of cefepime and vancomycin. He is afebrile His WBC is elevated but he is also on steroids (4) Congestive heart failure: Code(s): I50.9 - Heart failure, unspecified Status: Acute Assessment and Plan: Diuretics as needed Echo 06/29 Summary 1. Complete two-dimensional, color flow and Doppler transthoracic echocardiogram is performed. 2. Technically suboptimal study due to poor sonographic images. 3. Left ventricular chamber dimension is mildly enlarged. 4. Definity contrast administered improved wall motion interpretation. 5. Left ventricular systolic function is normal, estimated at 55-60%. 6. There is moderately increased left ventricular wall thickness. 7. The left ventricular diastolic function is grade I diastolic dysfunction. 8. E/e' 14 is mildly elevated. 9. Left atrial chamber dimension is mildly enlarged. 10. Right atrial chamber dimension is mildly enlarged. 11. There is moderate aortic valve sclerosis. 12. There is mild aortic valve stenosis with a peak velocity of 219.91 cm/s, mean gradient of 10 mmHg, and aortic valve area of 1.66 cm2. 13. No pulmonary hypertension, estimated pulmonary arterial systolic pressure is 33 mmHg. (5) Acute UTI: Code(s): N39.0 - Urinary tract infection, site not specified Status: Acute Assessment and Plan: Urine is growing out Enterococcus which is sensitive to vancomycin. (6) Essential (primary) hypertension: Code(s): I10 - Essential (primary) hypertension Status: Acute Assessment and Plan: Currently on beta-paul hydralazine and LLOYD-inhibitor Additional Plan DVT prophylaxis -Lovenox Nutrition -regular diet Code Status - Full Code Total Critical Care Time - 40 minutes Due to a high probability of clinically significant, life threatening deterioration, the patient required my highest level of preparedness to intervene emergently and I personally spent this critical care time directly and personally managing the patient. This critical care time included obtaining a history; examining the patient; pulse oximetry; ordering and review of studies; arranging urgent treatment with development of a management plan; evaluation of patient's response to treatment; frequent reassessment; and discussion
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
--- NOTE | 2021-07-11 12:49 | PC.NURSE ---
This patient, Dario Quezada, was transferred to ICU 1 on 07/11/21 at 1230. Personal belongings sent with patient. Report given to SNOW Edwards @ 1200. Appropriate documentation sent with patient.
[2021-07-11] MEDS: IPRATROPIUM BR 0.02% INH SOLN 0.5 MG/2.5 ML VIAL INHALATION ×2 (13:17→20:55)
[2021-07-11] MEDS: MORPHINE SULFATE (*CRX) 2 MG/ML INJ IV PUSH ×3 (13:26→20:05)
[2021-07-11] MEDS: ENOXAPARIN 40 MG/0.4 ML SYRINGE SUB-Q (20:07)
[2021-07-11] MEDS: ALBUTEROL SULFATE NEB 2.5 MG/0.5 ML INH INHALATION (20:56)
[2021-07-12] VITALS (23 sets, daily range): BP systolic 87–148; BP diastolic 59–80; PULSE 69–104; RESP 20–32; TEMP 36.4–36.7; O2SAT 84–95
[2021-07-12] MEDS: ALBUTEROL SULFATE NEB 2.5 MG/0.5 ML INH INHALATION ×4 (01:49→19:57)
[2021-07-12] MEDS: IPRATROPIUM BR 0.02% INH SOLN 0.5 MG/2.5 ML VIAL INHALATION ×4 (01:49→19:57)
[2021-07-12] MEDS: HYDROcodone/acetaminophen (*CRX) 10-325 MG TABLET 1 TAB PO (03:28)
[2021-07-12] MEDS: hydrALAZINE HCL 50 MG TABLET 100 MG BY MOUTH ×2 (05:31→20:18)
[2021-07-12] MEDS: guaiFENesin 12 HR 600 MG TABCR 1200 MG PO (05:31)
[2021-07-12 05:45] LABS: Basophils Absolute Auto 0.1 K/mm3 (0.0-0.1); Basophils Percent Auto 0.2 % (0.2-1.2); Hemoglobin 14.3 g/dL (14.0-18.0); Immature Granulocyte Absolute 0.25 K/mm3 (0.00-0.031); Immature Granulocyte Percent A 1.1 % (0-0.5); Lymphocytes Absolute Auto 0.63 K/mm3 (0.9-3.2); Lymphocytes Percent Auto 2.9 % (18.3-44.2); Mean Corpuscular HGB Conc 32.5 g/dl (32-36); Mean Corpuscular Volume 89.2 fl (80-100); Mean Platelet Volume 10.3 fl (7.4-10.4); Monocytes Absolute Auto 2.1 K/mm3 (0.1-0.6); Monocytes Percent Auto 9.6 % (2.6-8.5); Neutrophils Absolute Auto 18.7 K/mm3 (1.3-6.7); Neutrophils Percent Auto 86.2 % (45.5-73.1); Platelet Count Result 382 k/mm3 (150-375); Red Blood Count 4.93 M/mm3 (4.6-6.20); Red Cell Distribution Width 14.2 % (11.5-14.5); White Blood Count 21.7 K/mm3 (4.5-10.0)
[2021-07-12 06:03] LABS: Alanine Aminotransferase 66 U/L (4-50); Albumin Level 3.8 g/dL (3.5-5.1); Alkaline Phosphatase 117 U/L (38-126); Anion Gap 9 mmol/L (8-16); Aspartate Amino Transferase 47 U/L (17-59); Bilirubin,Total 1.3 mg/dL (0.2-1.3); Blood Urea Nitrogen 79 mg/dL (9-20); Calcium 8.8 mg/dL (8.4-10.2); Carbon Dioxide 27 mmol/L (22-30); Chloride 97 mmol/L (98-107); Estimated CRCL calculation 32 ml/min; Estimated Glomerular Filt Rate 26; Glucose 127 mg/dL (65-110); Magnesium 2.4 mg/dL (1.6-2.3); Potassium 5.7 mmol/L (3.4-5.0); Sodium 133 mmol/L (137-145)
[2021-07-12] MEDS: MORPHINE SULFATE (*CRX) 2 MG/ML INJ IV PUSH (10:01)
--- NOTE | 2021-07-12 11:22 | PCFNICU ---
ICU Rounding Note: Pt current nutrition is NPO. Last recorded weight is 100.2 kg-stable Bowel Motility:+BM reported 07/07 Labs Reviewed:Mg 2.4,BUN 79,Na 133, K 5.7, Glu 127, Cr 2.5 Meds Noted:Albuterol, Mucinex,Coreg Skin: WNL Additional Notes: Patient transferred to ICU. Spoke with nursing today, patient is COVID positive, on continuous bypap. NPO at this time. Following daily in ICU rounds.
[2021-07-12] MEDS: LIDOCAINE HCL 1% PF INJ 5 ML VIAL INFILTRATE (11:40)
--- NOTE | 2021-07-12 12:07 | WPDINTPN ---
Progress Note: A&P Assessment and Plan (1) Acute and chronic respiratory failure with hypoxia: Code(s): J96.21 - Acute and chronic respiratory failure with hypoxia Status: Acute Assessment and Plan: Acute Respiratory failure secondary to COVID 19 pneumonia with gradually worsening hypoxia Patient continues to be on BiPAP 20/12 100% his saturations are high 85 to 90 % He states that he does not want to be intubated at this time but will be okay with intubation as a last resort if there is no other option left for him. He also told me that if he is unable to get extubated he is okay with tracheostomy and PEG tube placement for long-term ventilation. But he also requested that he does not want resuscitation if his heart stops and requested to be DNR in the event of cardiac arrest Since patient is not any respiratory distress and is asymptomatic, I will continue to tolerate saturations of 85-90%. He still may need intubation and will continue be closely monitored in ICU. Chest x-ray reviewed and shows stable diffuse lung disease Bronchodilators (2) COPD (chronic obstructive pulmonary disease): Code(s): J44.9 - Chronic obstructive pulmonary disease, unspecified Status: Acute Assessment and Plan: Not in exacerbation at this time Already on steroids Continue bronchodilators (3) Pneumonia due to COVID-19 virus: Code(s): U07.1 - COVID-19; J12.82 - Pneumonia due to coronavirus disease 2019 Status: Acute Assessment and Plan: Patient was tested positive 06/24 which was around 16 days ago. Patient has completed 10 day course of remdesivir Patient has all ready completed 10 day course of dexamethasone and was continued on 07/09 He was started on Barcitinib on 07/10. Since patient was started on this by close to 2 weeks after admission I am not sure if there is any proven benefit at this point. I have discussed case with Pulmonary with Dr. Newton and he is agreeable. If no proven benefit chances of risk of secondary infection from immunosuppression, will discontinue Barcitinib Patient was also started on empiric antibiotics in the form of cefepime and vancomycin. He is afebrile His WBC is elevated but he is also on steroids (4) Congestive heart failure: Code(s): I50.9 - Heart failure, unspecified Status: Acute Assessment and Plan: Lasix IV today Echo 06/29 Summary 1. Complete two-dimensional, color flow and Doppler transthoracic echocardiogram is performed. 2. Technically suboptimal study due to poor sonographic images. 3. Left ventricular chamber dimension is mildly enlarged. 4. Definity contrast administered improved wall motion interpretation. 5. Left ventricular systolic function is normal, estimated at 55-60%. 6. There is moderately increased left ventricular wall thickness. 7. The left ventricular diastolic function is grade I diastolic dysfunction. 8. E/e' 14 is mildly elevated. 9. Left atrial chamber dimension is mildly enlarged. 10. Right atrial chamber dimension is mildly enlarged. 11. There is moderate aortic valve sclerosis. 12. There is mild aortic valve stenosis with a peak velocity of 219.91 cm/s, mean gradient of 10 mmHg, and aortic valve area of 1.66 cm2. 13. No pulmonary hypertension, estimated pulmonary arterial systolic pressure is 33 mmHg. (5) Acute UTI: Code(s): N39.0 - Urinary tract infection, site not specified Status: Acute Assessment and Plan: Urine is growing out Enterococcus which is sensitive to vancomycin. (6) Essential (primary) hypertension: Code(s): I10 - Essential (primary) hypertension Status: Acute Assessment and Plan: Currently on beta-paul hydralazine and LLOYD-inhibitor (7) Chronic renal disease: Code(s): N18.9 - Chronic kidney disease, unspecified Status: Acute Assessment and Plan: Patient has chronic kidney disease and creatinine has been fluctuating b
[2021-07-12] MEDS: FUROSEMIDE INJ 40 MG/4 ML VIAL IV PUSH (14:45)
[2021-07-12] MEDS: HYDROmorphone HCL INJ (*CRX) 1 MG/ML SYR IV PUSH ×3 (14:45→21:46)
[2021-07-12] MEDS: INSULIN HUMAN REGULAR (*BKC) 100 UNITS/ML 10 UNITS IV PUSH (14:46)
[2021-07-12] MEDS: DEXTROSE 50% 25 GM/50 ML SYRINGE IV PUSH (14:46)
[2021-07-12] MEDS: CENTRAL LINE FLUSH 10 ML IV PUSH ×2 (16:23→20:18)
[2021-07-12 18:21] LABS: Glucose Point of Care 103 mg/dl (65-105)
[2021-07-12] MEDS: carvediloL 25 MG TABLET BY MOUTH (20:17)
[2021-07-12] MEDS: ENOXAPARIN 40 MG/0.4 ML SYRINGE SUB-Q (20:17)
--- NOTE | 2021-07-12 21:08 | PC.NURSE ---
1999 Spoke with patient at length regarding possible need for intubation and ventilator. Patient adamant that he does not want to be intubated and put on a ventilator. Patient is awake, alert and oriented x 3 texting his family to let them know of his decsion. Abhay RT in room for this discussion. 2029 Patient POA Sammy called to discuss plan of care. He was made aware of the decision by Mr. Quezada via text that he wanted to be a DNR\DNI and understands and agrees with his wishes. [address] Leyva on the patients wishes and conversation with the POA. Dr. Leyva agrees and no further orders at this time.
[2021-07-13] VITALS (27 sets, daily range): BP systolic 102–148; BP diastolic 54–103; PULSE 66–113; RESP 18–26; TEMP 35.6–36.9; O2SAT 81–89; BMI 32.5
[2021-07-13] MEDS: IPRATROPIUM BR 0.02% INH SOLN 0.5 MG/2.5 ML VIAL INHALATION ×4 (01:06→21:11)
[2021-07-13] MEDS: ALBUTEROL SULFATE NEB 2.5 MG/0.5 ML INH INHALATION ×4 (01:06→21:12)
[2021-07-13 05:06] LABS: Basophils Percent Auto 0.1 % (0.2-1.2); Hematocrit 38.4 % (42.0-52.0); Hemoglobin 13.2 g/dL (14.0-18.0); Immature Granulocyte Percent A 0.9 % (0-0.5); Lymphocytes Absolute Auto 0.24 K/mm3 (0.9-3.2); Lymphocytes Percent Auto 1.1 % (18.3-44.2); Mean Corpuscular HGB Conc 34.4 g/dl (32-36); Mean Corpuscular Hemoglobin 29.5 pg (26-34); Mean Corpuscular Volume 85.7 fl (80-100); Mean Platelet Volume 10.8 fl (7.4-10.4); Monocytes Absolute Auto 0.8 K/mm3 (0.1-0.6); Monocytes Percent Auto 3.4 % (2.6-8.5); Neutrophils Absolute Auto 20.6 K/mm3 (1.3-6.7); Neutrophils Percent Auto 94.5 % (45.5-73.1); Platelet Count Result 356 k/mm3 (150-375); Red Blood Count 4.48 M/mm3 (4.6-6.20); Red Cell Distribution Width 14.1 % (11.5-14.5); White Blood Count 21.8 K/mm3 (4.5-10.0)
[2021-07-13 05:17] LABS: Alanine Aminotransferase 50 U/L (4-50); Albumin Level 3.5 g/dL (3.5-5.1); Alkaline Phosphatase 129 U/L (38-126); Anion Gap 5 mmol/L (8-16); Aspartate Amino Transferase 38 U/L (17-59); Blood Urea Nitrogen 100 mg/dL (9-20); Calcium 8.9 mg/dL (8.4-10.2); Carbon Dioxide 29 mmol/L (22-30); Chloride 95 mmol/L (98-107); Estimated CRCL calculation 22 ml/min; Estimated Glomerular Filt Rate 17; Glucose 177 mg/dL (65-110); Magnesium 2.9 mg/dL (1.6-2.3); Potassium 5.8 mmol/L (3.4-5.0); Sodium 129 mmol/L (137-145)
[2021-07-13] MEDS: CENTRAL LINE FLUSH 10 ML IV PUSH ×3 (07:33→19:49)
[2021-07-13] MEDS: HYDROmorphone HCL INJ (*CRX) 1 MG/ML SYR IV PUSH (08:58)
--- NOTE | 2021-07-13 09:41 | WPDINTPN ---
Progress Note: A&P Assessment and Plan (1) Acute and chronic respiratory failure with hypoxia: Code(s): J96.21 - Acute and chronic respiratory failure with hypoxia Status: Acute Assessment and Plan: Acute Respiratory failure secondary to COVID 19 pneumonia with gradually worsening hypoxia Patient continues to be on BiPAP 20 100% his saturations are high 85 to 90 % 07/12 patient requested he does not want to be intubated at this time but will be okay with intubation as a last resort if there is no other option left for him. He also told me that if he is unable to get extubated he is okay with tracheostomy and PEG tube placement for long-term ventilation. But he also requested that he does not want resuscitation if his heart stops and requested to be DNR in the event of cardiac arrest Overnight patient spoke to his stepson who is patient's HUNTER Christianson and he told nursing staff and RT that he does not want to be intubated. He states that he will continue to try BiPAP and other modes of oxygen but if this does not work that he does not want to go on a ventilator even if that means he will from this pneumonia and respiratory failure. I again confirmed with with him this morning. Patient is alert awake and fully with the and he confirmed to me that he does not want to be intubated and understands that if current modes of ventilation and oxygenation do not work that he will without mechanical ventilation. Patient's oxygen saturation has been in mid 80s to low 90 on BiPAP. I will try Airvo to see if I can get similar saturations and he will be able to take a break and also take his pills and drink some water. Since he is DNR DNI, will try to do the best we can with Airvo and noninvasive positive pressure ventilation as needed Since patient is not any respiratory distress and is asymptomatic, I will continue to tolerate saturations of 85-90%. He still may need intubation and will continue be closely monitored in ICU. Chest x-ray reviewed and shows stable diffuse lung disease Bronchodilators (2) COPD (chronic obstructive pulmonary disease): Code(s): J44.9 - Chronic obstructive pulmonary disease, unspecified Status: Acute Assessment and Plan: Not in exacerbation at this time Already on steroids Continue bronchodilators (3) Pneumonia due to COVID-19 virus: Code(s): U07.1 - COVID-19; J12.82 - Pneumonia due to coronavirus disease 2019 Status: Acute Assessment and Plan: Patient was tested positive 06/24 which was around 16 days ago. Patient has completed 10 day course of remdesivir Patient has all ready completed 10 day course of dexamethasone and was continued on 07/09 He was started on Barcitinib on 07/10. Since patient was started on this by close to 2 weeks after admission I am not sure if there is any proven benefit at this point. I have discussed case with Pulmonary with Dr. Newton and he is agreeable. With no proven benefit and high chances of risk of secondary infection from immunosuppression, Barcitinib was discontinue Patient was also started on empiric antibiotics in the form of cefepime and vancomycin. He is afebrile I will continue those was 7 days His WBC is elevated but he is also on steroids (4) Congestive heart failure: Code(s): I50.9 - Heart failure, unspecified Status: Acute Assessment and Plan: hold Lasix Echo 06/29 Summary 1. Complete two-dimensional, color flow and Doppler transthoracic echocardiogram is performed. 2. Technically suboptimal study due to poor sonographic images. 3. Left ventricular chamber dimension is mildly enlarged. 4. Definity contrast administered improved wall motion interpretation. 5. Left ventricular systolic function is normal, estimated at 55-60%. 6. There is moderately increased left ventricular wall thickness. 7. The left ventricular diastolic function is grade I diastolic dysfunction. 8. E/e' 14 is mildly eleva
[2021-07-13] MEDS: MONTELUKAST SODIUM 10 MG TABLET PO (09:55)
[2021-07-13] MEDS: DULoxetine HCL 60 MG CAPSULE.DR BY MOUTH (09:55)
[2021-07-13] MEDS: carvediloL 25 MG TABLET BY MOUTH ×2 (09:55→19:53)
[2021-07-13] MEDS: ASPIRIN 81 MG ENTERIC TABLET PO (09:55)
[2021-07-13] MEDS: INSULIN HUMAN REGULAR (*BKC) 100 UNITS/ML 10 UNITS IV PUSH (12:21)
[2021-07-13] MEDS: SODIUM POLYSTYRENE SULFONONATE 15 GM/60 ML BTL 30 GM PO (12:21)
[2021-07-13] MEDS: DEXTROSE 50% 25 GM/50 ML SYRINGE IV PUSH (12:21)
[2021-07-13] MEDS: HYDROcodone/acetaminophen (*CRX) 10-325 MG TABLET 1 TAB PO ×2 (12:31→18:30)
--- NOTE | 2021-07-13 12:39 | PM.CNNEP ---
Assessment and Plan Assessment and plan (1) Acute renal failure superimposed on chronic kidney disease: Code(s): N17.9 - Acute kidney failure, unspecified; N18.9 - Chronic kidney disease, unspecified Status: Acute Assessment and Plan: the patient has chronic kidney disease. This is likely due to hypertension. He follows with Dr. Espinosa in the office. He now has superimposed acute kidney injury. This could be from 1 or more of several issues: The patient could have acute kidney injury from the COVID and it is consequent generalized inflammation. He has passed kidney stones in the past. He could have passed a stone in be partially or completely obstructing 1 ureter. This would be unusual could usually he would have pain. He has a bladder infection and so could have some affects from this on the kidneys. He could have a septic syndrome is well Will get a renal ultrasound, urine electrolytes, urinalysis, CPK. He is making lots of urine. I do not think he needs diuretics at this point. (2) Acute UTI: Code(s): N39.0 - Urinary tract infection, site not specified Status: Acute Assessment and Plan: He had a urine culture done. He is on cefepime and vancomycin. (3) Hyperkalemia: Code(s): E87.5 - Hyperkalemia Status: Acute Assessment and Plan: Potassium is a little high in the 5s. He is getting Kayexalate. (4) Pneumonia due to COVID-19 virus: Code(s): U07.1 - COVID-19; J12.82 - Pneumonia due to coronavirus disease 2019 Status: Acute Assessment and Plan: He is on Dexamethasone for this. He received remdesivir and baricitinib. (5) Diastolic dysfunction: Code(s): I51.89 - Other ill-defined heart diseases Status: Acute Assessment and Plan: Echo shows grade 1 diastolic dysfunction. (6) COPD (chronic obstructive pulmonary disease): Code(s): J44.9 - Chronic obstructive pulmonary disease, unspecified Status: Acute Assessment and Plan: He was a heavy smoker in the past. (7) Essential (primary) hypertension: Code(s): I10 - Essential (primary) hypertension Status: Acute Assessment and Plan: Blood pressure running between 100-150. 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 (9) Sleep apnea, unspecified: Code(s): G47.30 - Sleep apnea, unspecified Status: Acute (10) Other hyperlipidemia: Code(s): E78.49 - Other hyperlipidemia Status: Acute Assessment and Plan: He is on simvastatin as an outpatient History of Present Illness Reason for Consult Consult date: 07/13/21 Chief Complaint Chief complaint: covid pneumonia,hypoxia History of Present Illness Narrative: Dario is an unfortunate 66-year-old gentleman who has Multiple medical problems including chronic kidney disease with a baseline creatinine of around 2-2.2, diastolic dysfunction, possible COPD, obesity, hyperlipidemia, coronary disease status post SD in 1998, history of blood clots, depression, retention. The patient originally came into the hospital on the 28 of June. He came in because of shortness of breath. He had been sick for a few days before that. He had a COVID test on the which was positive. At that point he had a cough and shortness of breath with fevers. However by the time he came to the ER he was very weak and could barely walk. He was evaluated in the emergency room. Chest x-ray shows bilateral infiltrates. He was hypoxic and got some oxygen. He was admitted to the floor and pulmonary was consulted. He was treated with Dexamethasone Remdesivir, baricitinib, and supportive care. Eventually his oxygenation got worse. He rosie
[2021-07-13 13:31] LABS: Creatine Kinase < 20 U/L (55-170)
[2021-07-13 14:44] LABS: Creatinine Urine 67.9 mg/dL; Total Protein Urine Random 96 mg/dL; Ur Ttl Prot Creatinine Ratio 1.41 mg/mg (0-0.20)
[2021-07-13 14:50] LABS: Sodium Urine Random 26 meq/L
[2021-07-13 17:25] LABS: Add Urine Microscopic? YES; Appearance Urine Cloudy (Clear); Bacteria Urine Trace /hpf; Bilirubin Urine Negative (Negative); Blood Urine 1+ (Negative); Budding Yeast Urine Present /hpf; Color Urine Yellow (Yellow); Glucose Urine UA Negative (Negative); Ketones Urine Negative (Negative); Leukocyte Esterase Ur 1+ LEU/UL (NEGATIVE); Mucus Urine Rare /lpf; Nitrate Urine Negative (Negative); Protein Urine 2+ mg/dL (Negative); Specific Grav Ur 1.015 (1.001-1.035); Squamous Epithelial Cell Urine Few /hpf (Few); Urobilinogen Urine Negative mg/dL (<2.0); WBC Urine 16-20 /hpf (0-3)
[2021-07-13] MEDS: hydrALAZINE HCL 50 MG TABLET 100 MG BY MOUTH ×2 (17:59→23:18)
[2021-07-13] MEDS: guaiFENesin 12 HR 600 MG TABCR 1200 MG PO (18:00)
[2021-07-13] MEDS: ENOXAPARIN 40 MG/0.4 ML SYRINGE SUB-Q (19:48)
[2021-07-13] MEDS: DORZOLAMIDE/TIMOLOL OPHTH SOL 10 ML BOTTLE 1 DROP EACH EYE (19:48)
[2021-07-14] VITALS (7 sets, daily range): BP systolic 100–117; BP diastolic 55–89; PULSE 92–119; RESP 28–39; TEMP 36.6–36.8; O2SAT 77–83
[2021-07-14] MEDS: HYDROcodone/acetaminophen (*CRX) 10-325 MG TABLET 1 TAB PO (01:17)
[2021-07-14] MEDS: IPRATROPIUM BR 0.02% INH SOLN 0.5 MG/2.5 ML VIAL INHALATION (01:31)
[2021-07-14] MEDS: ALBUTEROL SULFATE NEB 2.5 MG/0.5 ML INH INHALATION (01:31)
--- NOTE | 2021-07-14 01:48 | PC.NURSE ---
Patient placed in prone position due to decrease in O2 Sat and increase work of breathing. Patient Alert and Oriented x3, still wants to be DNR/DNI. Dr. Harris notified regarding increase work of breathing, new orders received.
[2021-07-14] MEDS: LORazepam INJ (*CRX) 2 MG/ML VIAL 1 MG IV PUSH (01:49)
[2021-07-14] MEDS: MORPHINE SULFATE (*CRX) 2 MG/ML INJ IV PUSH (03:49)
[2021-07-14] MEDS: CENTRAL LINE FLUSH 10 ML IV PUSH (03:53)
[2021-07-14 04:13] LABS: Basophils Absolute Auto 0.1 K/mm3 (0.0-0.1); Basophils Percent Auto 0.2 % (0.2-1.2); Hematocrit 41.3 % (42.0-52.0); Hemoglobin 14.1 g/dL (14.0-18.0); Immature Granulocyte Absolute 0.41 K/mm3 (0.00-0.031); Immature Granulocyte Percent A 1.3 % (0-0.5); Lymphocytes Absolute Auto 0.22 K/mm3 (0.9-3.2); Lymphocytes Percent Auto 0.7 % (18.3-44.2); Mean Corpuscular HGB Conc 34.1 g/dl (32-36); Mean Corpuscular Volume 87.9 fl (80-100); Mean Platelet Volume 10.8 fl (7.4-10.4); Monocytes Absolute Auto 2.4 K/mm3 (0.1-0.6); Monocytes Percent Auto 7.5 % (2.6-8.5); Neutrophils Absolute Auto 29.4 K/mm3 (1.3-6.7); Neutrophils Percent Auto 90.3 % (45.5-73.1); Platelet Count Result 314 k/mm3 (150-375); Red Cell Distribution Width 14.1 % (11.5-14.5); White Blood Count 32.5 K/mm3 (4.5-10.0)
[2021-07-14 04:23] LABS: Alanine Aminotransferase 67 U/L (4-50); Albumin Level 3.5 g/dL (3.5-5.1); Alkaline Phosphatase 151 U/L (38-126); Anion Gap 7 mmol/L (8-16); Aspartate Amino Transferase 61 U/L (17-59); Bilirubin,Total 1.3 mg/dL (0.2-1.3); Blood Urea Nitrogen 102 mg/dL (9-20); Calcium 8.9 mg/dL (8.4-10.2); Carbon Dioxide 30 mmol/L (22-30); Chloride 96 mmol/L (98-107); Estimated CRCL calculation 26 ml/min; Estimated Glomerular Filt Rate 20; Glucose 178 mg/dL (65-110); Magnesium 2.7 mg/dL (1.6-2.3); Phosphorus 7.2 mg/dL (2.5-4.5); Potassium 5.1 mmol/L (3.4-5.0); Sodium 133 mmol/L (137-145)
--- NOTE | 2021-07-14 06:20 | PC.NURSE ---
Patient passed at 0556. Myself and Yanira RN at bedside. Patient is a DNR. Patient son (Sammy) notified as patient is actively passing.
--- NOTE | 2021-07-27 11:16 | P.DN_ITS ---
Discharge Summary Date and Time Date of : 07/14/21 Time of : 05:56 Provider Pronounced By: Carolann Soto RN Probable Cause of Probable Cause of : COVID-19 pneumonia Summary Hospital Course: 66-year-old male patient who was not vaccinated for COVID. The patient had history of CKD, COPD and CHF and was chronically on oxygen. He tested positive for COVID-19 on 06/24/2021. Who patient was admitted with COVID-19 pneumonia and treated with dexamethasone and remdesivir. Pulmonary was consulted. Baricitinib was later added due to continued deterioration and increased hypoxia. Patient was requiring high-flow nasal cannula and then later required BiPAP. Patient was transferred to ICU on 07/11. At that time patient was full code but on transferred to ICU he did express to me that if he gets intubated he would not like a prolonged mechanical ventilation and did not want tracheostomy or PEG tube placement. He also told me at that time that he does not want resuscitation in the event of a cardiac arrest considering his medical condition and guarded prognosis. Patient was made DNR in the chart and treatment was continued. Patient was also started on empiric antibiotics in the form of vancomycin and cefepime. He was given Lasix for congestive heart failure. His urine grew Enterococcus and he was treated for UTI. Over the course of his ICU stay patient became dependent on BiPAP. He spoke to his stepson who was his POA and decided that he did not wanted to go on a ventilator irrespective of his outcome. He chose to became DNR DNI. He told me that he will continue to try BiPAP and other modes of oxygen but if this does not work that he does not want to go on a ventilator even if that means he will from this pneumonia and respiratory failure. I again confirmed with with him at least twice. Patient was alert awake and fully with it and he confirmed that he does not want to be intubated and understands that if current modes of ventilation and oxygenation do not work that he will without mechanical ventilation. On the morning 07/14 around 6:00 a.m. in the morning patient suddenly became bradycardic and went into asystole. As per his request patient was not resuscitated. Patient was pronounced by nursing staff overnight and Dr. Harris was notified. Patient's family was also notified Additional Data Confirmation of as documented by pronouncing clinician: Pupillary Reflex, Palpable Pulses, Response to Stimuli, Heart Tones and Breath Sounds Name of Provider Notified: Dr. Harris Time Provider Notified: 06:05 Provider Requests Autopsy: No Family Requests Autopsy: No Car Deliverer Notified: Yes Date [facility] Notified of : 07/14/21 Time [facility] Notified of : 06:26
== END 2021-07-14 05:56 | disposition expired | DRG 177 ==
LOC: ANHED 14:09 → ANH3MEDSUR 20:02 → ANHICU 07-13 11:35 → ANH3MEDSUR 07-15 08:20 → ANHICU 07-15 08:20
PROVIDERS: Internal Medicine; Internal Medicine Critical Care Medicine; Internal Medicine Nephrology; Nurse Practitioner; Physician Assistant; Admitting Provider Internal Medicine; Emergency Provider Emergency Medicine; PCP Internal Medicine; Visit Provider Nurse Practitioner
DX: U07.1 COVID-19 (principal); J12.82 Pneumonia due to coronavirus disease 2019; J96.21 Acute and chronic respiratory failure with hypoxia; I50.33 Acute on chronic diastolic (congestive) heart failure; J15.9 Unspecified bacterial pneumonia; N17.9 Acute kidney failure, unspecified; N39.0 Urinary tract infection, site not specified; I13.0 Hypertensive heart and chronic kidney disease with heart failure and stage 1 through stage 4 chronic kidney disease, or unspecified chronic kidney disease; J44.0 Chronic obstructive pulmonary disease with (acute) lower respiratory infection; E87.5 Hyperkalemia; N18.9 Chronic kidney disease, unspecified; B95.2 Enterococcus as the cause of diseases classified elsewhere; H40.9 Unspecified glaucoma; E78.5 Hyperlipidemia, unspecified; N40.0 Benign prostatic hyperplasia without lower urinary tract symptoms; G47.33 Obstructive sleep apnea (adult) (pediatric); N13.9 Obstructive and reflux uropathy, unspecified; F32.A Depression, unspecified; R91.1 Solitary pulmonary nodule; E78.49 Other hyperlipidemia; D72.829 Elevated white blood cell count, unspecified; T38.0X5A Adverse effect of glucocorticoids and synthetic analogues, initial encounter; I25.10 Atherosclerotic heart disease of native coronary artery without angina pectoris; E66.9 Obesity, unspecified; Z68.32 Body mass index [BMI] 32.0-32.9, adult; Z96.649 Presence of unspecified artificial hip joint; Z87.442 Personal history of urinary calculi; I25.2 Old myocardial infarction; Z99.81 Dependence on supplemental oxygen; Z87.891 Personal history of nicotine dependence; Z86.718 Personal history of other venous thrombosis and embolism; Z90.81 Acquired absence of spleen
CPT/HCPCS: 36415; 36569; 36600; 71045; 76775; 78580; 80053; 80074; 81001; 82375; 82550; 82565; 82570; 82728; 82805; 82948; 83050; 83605; 83615; 83735; 83880; 84100; 84145; 84156; 84300; 84439; 84443; 84450; 84460; 84480; 84484; 85025; 85027; 85055; 85380; 85610; 86140; 87040; 87070; 87086; 87147; 87181; 87186; 87205; 93970; 94002; 94003; 94640; 96374; 97161; 97165; 99285; A9270; A9540; C1751; C8929; J0456; J0692; J0696; J1100; J1170; J1650; J1815; J1940; J2060; J2270; J3370; J7040; Q9957